=== PATIENT | male | born 1945 | race Caucasian/White ===

== ENCOUNTER 2022-05-15 12:24 | Inpatient (IN) | payer OTHER, MEDICARE, SELFPAY ==
[2022-05-15] VITALS (10 sets, daily range): BP systolic 117–169; BP diastolic 47–64; PULSE 50–80; RESP 12–20; TEMP 35.9–37.4; O2SAT 86–100
--- NOTE | ~2022-05-15 | XR_ITS ---
EXAMINATION: XR surgery orthopedic DATE: 05/16/2022 16:45 BILLBOARD ERECTOR INDICATION: LT IT NAIL . TECHNIQUE: 4 fluoroscopic images of the left hip and femur were obtained during left intertrochanteri c nail placement performed by the surgeon. I was not present in the operating room. Fluoroscopy expos ure time was 78.4 seconds. Air Kerma 46.12 mGy. DAP 0.815-0 mGym2. COMPARISON: None FINDINGS: Multiple images demonstrate hardware fixation of the left hip. No unexpected radiopaque foreign body. IMPRESSION: Fluoroscopic documentation of left intertrochanteric nail placement. Please refer to the operative no te for complete procedural details . Reviewed, dictated and finalized at location K. BOARD ERECTOR IMPRESSION: Fluoroscopic documentation of left intertrochanteric nail placement. Please ref er to the operative note for complete procedural details .
--- NOTE | ~2022-05-15 | XR_ITS ---
EXAMINATION: XR chest 1V INDICATION: Pain after fall TECHNIQUE: AP view of the chest is obtained. COMPARISON: 12/17/2012 FINDINGS: The lung volumes are low. No pleural effusion or pneumothorax. The cardiomediastinal silhou ette is normal. A metallic density projecting over the right lung apex now appears to be outside the right lung on the comparison examination. IMPRESSION: 1. No acute cardiopulmonary abnormality. Reviewed, dictated and finalized at location B. 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
--- NOTE | ~2022-05-15 | XR_ITS ---
EXAMINATION: XR hip LT 2V w AP pelvis INDICATION: Left hip pain TECHNIQUE: AP view of the pelvis and two views of the left hip are obtained. COMPARISON: None available FINDINGS: There is an acute, traumatic, closed, intertrochanteric fracture of the left femur. The fem oral heads are well-seated in their acetabula. There is mild osteoarthritis of the hips. The soft tis sues are unremarkable. There is moderate spondylosis of the visualized lumbar spine. IMPRESSION: 1. Acute intertrochanteric fracture of the left femur. Reviewed, dictated and finalized at location B. 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
--- NOTE | 2022-05-15 12:24 | ECG_ITS ---
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
--- NOTE | 2022-05-15 12:29 | ED.FALL ---
HPI - Fall General Chief Complaint: Fall <MELCHOR Noriega Last Filed: 05/15/22 16:17> Stated Complaint: fall - hip pain <MELCHOR Noriega Last Filed: 05/15/22 16:17> Source: patient <Becki Pena PA-C - Last Filed: 05/15/22 16:17> Mode of arrival: EMS <MELCHOR Noriega Last Filed: 05/15/22 16:17> Limitations: no limitations <MELCHOR Noriega Last Filed: 05/15/22 16:17> History of Present Illness HPI Narrative: Patient is a 77-year-old male who presents the ED via EMS with L hip pain status post fall. Patient reports he tripped and fell while taking out the trash this morning, landing onto his left side. He did not hit his head or lose consciousness. Denied prodromal symptoms. He complains of severe pain to his left hip. He was unable to ambulate after the fall, EMS was contacted. Patient denies any other areas of pain at this time. Denies chest pain, difficulty breathing. Given morphine 4mg in route to the ED. <MELCHOR Noriega Last Filed: 05/15/22 16:17> Related Data Home Medications: Home Medications Medication Instructions Recorded Confirmed amlodipine 10 mg tablet 10 mg PO BID 05/15/22 05/20/22 buspirone 15 mg tablet 15 mg PO BID 05/15/22 05/20/22 carvedilol 25 mg tablet 25 mg PO BID 05/15/22 05/20/22 chlorthalidone 25 mg tablet 25 mg PO DAILY 05/15/22 05/20/22 cholecalciferol (vitamin D3) 25 25 mcg PO DAILY 05/15/22 05/20/22 mcg (1,000 unit) capsule docusate sodium 100 mg capsule 100 mg PO BID 05/15/22 05/20/22 folic acid 1 mg tablet 1 mg PO DAILY 05/15/22 05/20/22 losartan 100 mg tablet 100 mg PO DAILY 05/15/22 05/20/22 paroxetine HCl 30 mg tablet 30 mg PO BID 05/15/22 05/20/22 sulfasalazine 500 mg 0.5 g PO BID 05/15/22 05/20/22 tablet,delayed release acetaminophen 325 mg tablet (Mapap 975 mg PO Q8H PRN Mild Pain (1-3) 05/20/22 05/20/22 (acetaminophen)) Or Fever tramadol 50 mg tablet 25 mg PO TID PRN Pain (Scale Score 05/20/22 05/20/22 4-6) <Becki Pena PA-C - Last Filed: 05/15/22 16:17> Allergies/Adverse Reactions: Allergies Allergy/AdvReac Type Severity Reaction Status Date / Time No Known Allergies Allergy Verified 05/20/22 21:09 <MELCHOR Noriega Last Filed: 05/15/22 16:17> Review of Systems Review of Systems: CONSTITUTIONAL: Denies fever, chills, or sweats. EYES: Denies visual changes. CARDIOVASCULAR: Denies chest pain. RESPIRATORY: Denies dyspnea. GASTROINTESTINAL: Denies abdominal pain, nausea, vomiting. MUSCULOSKELETAL: Reports left hip pain. NEUROLOGIC: Denies HI, LOC, dizziness, lightheadedness, headache, numbness, or weakness. <Becki Pena PA-C - Last Filed: 05/15/22 16:17> All systems reviewed & are unremarkable except as noted in HPI and below <Becki Pena PA-C - Last Filed: 05/15/22 16:17> [facility] Past Medical History Medical History: Medical History Anxiety Chronic kidney disease History of prostate cancer Status post prostatectomy. Hypertension Psoriatic arthritis War injury due to shrapnel <MELCHOR Noriega Last Filed: 05/15/22 16:17> Surgical History Surgical History: Surgical History History of carpal tunnel release History of prostatectomy History of wisdom tooth extraction <MELCHOR Noriega Last Filed: 05/15/22 16:17> Family History Family History: Family History Mother Diabetes mellitus Pancreatic cancer Father Glioblastoma <Becki Pena PA-C - Last Filed: 05/15/22 16:17> Social History Social History: Social History Social History: Surrogate medical decision maker: Genesis Geesybil, spouse. Code status: Full cod
[2022-05-15 12:51] LABS: Basophils Percent Auto 0.8 % (0.2-1.2); Eosinophils Absolute Auto 0.1 K/mm3 (0-0.3); Eosinophils Percent Auto 3.1 % (0-4.4); Hematocrit 34.7 % (42.0-52.0); Hemoglobin 11.7 g/dL (14.0-18.0); Immature Granulocyte Absolute 0.03 K/mm3 (0.00-0.031); Immature Granulocyte Percent A 0.8 % (0-0.5); Lymphocytes Absolute Auto 0.57 K/mm3 (0.9-3.2); Lymphocytes Percent Auto 14.6 % (18.3-44.2); Mean Corpuscular HGB Conc 33.7 g/dl (32-36); Mean Corpuscular Hemoglobin 35.5 pg (26-34); Mean Corpuscular Volume 105.2 fl (80-100); Mean Platelet Volume 10.7 fl (7.4-10.4); Monocytes Absolute Auto 0.5 K/mm3 (0.1-0.6); Monocytes Percent Auto 13.6 % (2.6-8.5); Neutrophils Absolute Auto 2.6 K/mm3 (1.3-6.7); Neutrophils Percent Auto 67.1 % (45.5-73.1); Platelet Count Result 166 k/mm3 (150-375); Red Cell Distribution Width 13.7 % (11.5-14.5); White Blood Count 3.9 K/mm3 (4.5-10.0)
[2022-05-15] MEDS: ONDANSETRON INJ 4 MG/2 ML VIAL IV PUSH (12:52)
[2022-05-15] MEDS: HYDROmorphone HCL INJ (*CRX) 1 MG/ML SYR 0.5 MG IV PUSH ×3 (12:52→19:34)
[2022-05-15 13:01] LABS: Alanine Aminotransferase 18 U/L (6-50); Alkaline Phosphatase 47 U/L (38-126); Anion Gap 12 mmol/L (8-16); Aspartate Amino Transferase 28 U/L (17-59); Bilirubin,Total 0.6 mg/dL (0.2-1.3); Blood Urea Nitrogen 23 mg/dL (9-20); Carbon Dioxide 30 mmol/L (22-30); Chloride 98 mmol/L (98-107); Estimated CRCL calculation 41 ml/min; Estimated Glomerular Filt Rate 37; Glucose 106 mg/dL (65-110); Potassium 3.4 mmol/L (3.4-5.0); Sodium 140 mmol/L (137-145)
[2022-05-15 13:08] LABS: INR 1.1; Prothrombin Time 13.8 Seconds (11.1-14.7); Schistocytes None Seen (NORMAL)
[2022-05-15 13:09] LABS: Partial Thromboplastin Time 28.8 SECONDS (22.3-36.8)
[2022-05-15] MEDS: diazePAM INJ (*CRX) 10 MG/2 ML SYRINGE 2 MG IV PUSH ×2 (13:57→18:48)
[2022-05-15 14:27] LABS: SARS-CoV-2 RNA PCR Negative
--- NOTE | 2022-05-15 15:00 | PM.IMHP ---
H&P: HPI History of Present Illness Date/Time: 05/15/22 15:00 Chief Complaint: Left hip pain after fall. Narrative: This is a very pleasant 77-year-old male with hypertension, chronic kidney disease, psoriatic arthritis, and history of prostate cancer who presented to the emergency department via EMS from home for evaluation of left hip pain after a fall. Not long prior to arrival he and outside to fetch the trash can and while pulling it into the garage from the side door, he lost his footing and landed hard onto his left hip on the concrete floor. He was unable to get himself up on even with help from his , and EMS was summoned. Imaging in the ED demonstrated a left intertrochanteric fracture and he is being admitted in this setting. He complains of significant spasms around the left hip, rated 6/10. Hydromorphone and diazepam given in the ED have helped but their are wearing off. He sustained no other injuries in the fall and there was no head trauma or loss of consciousness. There is no numbness, tingling, or skin colored or temperature changes distal to the fracture site. Review of Systems Review of Systems: Twelve systems were reviewed. No fever, chills, or sweats. No recent cold or flu symptoms. There was no prodrome prior to the fall, it was purely mechanical. No syncope or near syncope. He denies exertional chest pain and shortness of breath. No known history of cardiac disease. He had a stress test done spring 2021 for evaluation of dyspnea on exertion and that was normal per patient report. No nausea, vomiting, or diarrhea. He denies dysuria. Except as documented, all other systems were reviewed and are negative. [facility] Past Medical History Medical History (Updated 05/15/22 @ 19:01 by Alia Logan PA-C) Chronic kidney disease History of prostate cancer Status post prostatectomy. Hypertension Psoriatic arthritis War injury due to shrapnel Surgical History Surgical History (Updated 05/15/22 @ 18:53 by Alia Logan PA-C) History of carpal tunnel release History of prostatectomy History of wisdom tooth extraction Family History Family History (Updated 05/15/22 @ 18:54 by Alia Logan PA-C) Mother Diabetes mellitus Pancreatic cancer Father Glioblastoma Social History Social History (Updated 05/15/22 @ 18:56 by Alia Logan PA-C) Social History: Surrogate medical decision maker: Genesis Mccollum, spouse. Code status: Full code. Smoking packs per day: 1 Smoking cigarettes per day: 20.0 Years smoked: 40 Smoking pack-years: 40.00 Smoking status: Former smoker Tobacco type: cigarettes Second hand tobacco smoke exposure: Yes Additional smoking assessment comments: Quit around 2013. Alcohol intake: current Drinks per week: 7 Alcohol use details: 1 shot of bourbon each night before bed. Substance use: never Substance use type: does not use Lack of Transportation: No Lack of Food: Never True Current Housing: I Have Housing Concerned About Future Housing: No Difficulty Paying Gas/Electric Bills: No Difficulty Paying for Meds: No Currently Unemployed: No Education: High School Diploma/GED Difficulty w/ Childcare or Family Care: No Additional living arrangements comments: The patient lives with his in [place]. They have 2 grown children. Additional occupation/education comments: Considered 100% disabled by the secondary to stable shrapnel injuries. 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 Spiritual care concerns: No Meds Home Medications and Allergies Home Medications Medication Instructions Recorded Confirmed Type amlodipine 10 mg tablet 10 mg PO BID 05/15/22 05/15/22 History buspirone 15 mg tablet 15 mg PO BID 05/15/22 05/15/22 History carvedilol 25 mg tablet 25 mg PO BID 05/15/22 05/15/22 History chlorthalidone 25 mg tablet 25 mg PO DAILY 05/15/22 05/15/22 History cholecalciferol (
[2022-05-15 15:23] LABS: Platelet Estimate Adequate (Adequate)
[2022-05-15] MEDS: HYDROmorphone HCL INJ (*CRX) 1 MG/ML SYR IV PUSH (16:04)
--- NOTE | 2022-05-15 16:17 | PC.NURSE ---
This patient, Darrell Mccollum, was admitted to 3 [facility] Surg Room 303-01. Patient/family oriented to hospital policies and general routines including ID bracelet, bed and alarms, visiting hours, pain management, procedures, bathroom and other care routines, personal items, smoking policy, room service/diet, and visiting hours. Information on how to activate the Rapid Response Team has been discussed. Patient/Family are encouraged to report perceived risks to care and to ask questions if they do not understand what they are told or what they should do.
[2022-05-15] MEDS: amLODIPine BESYLATE 5 MG TABLET 10 MG PO (20:08)
[2022-05-15] MEDS: carvediloL 25 MG TABLET PO (20:08)
[2022-05-15] MEDS: PARoxetine 10 MG TABLET 30 MG PO (20:08)
[2022-05-15] MEDS: busPIRone HCL 5 MG TABLET 15 MG PO (20:09)
[2022-05-15] MEDS: DOCUSATE SODIUM 100 MG CAPSULE PO (20:09)
[2022-05-15 20:36] LABS: Iron 88 ug/dL (49-181)
[2022-05-15 20:46] LABS: Percent Iron Saturation 30 % (20-50)
[2022-05-15 21:41] LABS: Folic Acid > 20.0 ng/mL (2.76->20)
[2022-05-16] VITALS (16 sets, daily range): BP systolic 102–150; BP diastolic 52–91; PULSE 62–85; RESP 12–20; TEMP 36–37.9; O2SAT 94–100
[2022-05-16] MEDS: HYDROmorphone HCL INJ (*CRX) 1 MG/ML SYR 0.5 MG IV PUSH ×7 (00:24→18:16)
[2022-05-16 06:29] LABS: Hematocrit 32.3 % (42.0-52.0); Hemoglobin 10.8 g/dL (14.0-18.0); Mean Corpuscular HGB Conc 33.4 g/dl (32-36); Mean Corpuscular Hemoglobin 35.5 pg (26-34); Mean Corpuscular Volume 106.3 fl (80-100); Mean Platelet Volume 11.3 fl (7.4-10.4); Platelet Count Result 169 k/mm3 (150-375); Red Blood Count 3.04 M/mm3 (4.6-6.20); Red Cell Distribution Width 13.9 % (11.5-14.5); White Blood Count 8.1 K/mm3 (4.5-10.0)
[2022-05-16 06:37] LABS: Anion Gap 14 mmol/L (8-16); Blood Urea Nitrogen 27 mg/dL (9-20); Calcium 8.8 mg/dL (8.4-10.2); Carbon Dioxide 29 mmol/L (22-30); Chloride 97 mmol/L (98-107); Estimated CRCL calculation 37 ml/min; Estimated Glomerular Filt Rate 33; Glucose 123 mg/dL (65-110); Magnesium 2.1 mg/dL (1.6-2.3); Potassium 3.1 mmol/L (3.4-5.0); Sodium 140 mmol/L (137-145)
--- NOTE | 2022-05-16 07:13 | PM.IMPN ---
Progress Note: A&P Assessment and Plan (1) Closed intertrochanteric fracture of left femur: Code(s): S72.142A - Displaced intertrochanteric fracture of left femur, initial encounter for closed fracture Status: Acute Assessment and Plan: OR today with ortho DVT prophylaxis per surgery (2) Macrocytic anemia: Code(s): D53.9 - Nutritional anemia, unspecified Status: Acute Assessment and Plan: follow labs (3) Fall from ground level: Code(s): W18.30XA - Fall on same level, unspecified, initial encounter Status: Acute Assessment and Plan: PT/OT consult (4) Hypertension: Code(s): I10 - Essential (primary) hypertension Status: Acute (5) Chronic kidney disease: Code(s): N18.9 - Chronic kidney disease, unspecified Status: Acute Assessment and Plan: monitor, unknown baseline (6) Psoriatic arthritis: Code(s): L40.50 - Arthropathic psoriasis, unspecified Status: Acute Assessment and Plan: receives outpatient humira injections (7) History of prostate cancer: Code(s): Z85.46 - Personal history of malignant neoplasm of prostate Status: Acute Assessment and Plan: history of prostatectomy, now with chronic urinary incontinence, at baseline, monitor Plan DVT prophylaxis with SCDs GI prophylaxis not indicated Code status full code Subjective Date/time seen: 05/16/22 07:13 Interval history: Patient going to the OR today for hip fracture repair. No overnight events noted. No chest pain or shortness of breath. No nausea, vomiting or diarrhea. No fevers or chills. Review of Systems Review of Systems: 12 point review of systems was assessed and was negative except as noted in the HPI Exam Narrative: General: No acute distress, alert and oriented per baseline HEENT: Atraumatic, normocephalic, mucous membranes moist CV: Regular rate and rhythm, S1, S2 Lungs: Clear to auscultation bilaterally, no rales or crackles noted, no wheezes, good air entry Abdomen: Soft, nontender, nondistended Extremities: Normal to inspection Skin: No rashes noted, no lesions or wounds seen Psych: Euthymic, normal affect Objective Data Vital Signs Vital Signs: Vital Signs - 24 hr 05/15/22 12:28 05/15/22 12:22 05/15/22 14:00 Temperature 98.1 F Pulse Rate 50 L 53 L 53 L Respiratory Rate 14 14 12 Blood Pressure 144/61 H 169/62 H 125/64 Pulse Oximetry 100 98 97 Oxygen Delivery Oxygen Flow Rate 05/15/22 14:23 05/15/22 16:00 05/15/22 15:35 Temperature 96.6 F L Pulse Rate 52 L 55 L 58 L Respiratory Rate 12 20 14 Blood Pressure 129/63 118/54 L 117/59 L Pulse Oximetry 97 93 100 Oxygen Delivery Oxygen Flow Rate 05/15/22 20:08 05/15/22 21:26 05/15/22 20:00 Temperature 99.3 F Pulse Rate 80 79 Respiratory Rate 14 Blood Pressure 134/47 L Pulse Oximetry 94 86 L Oxygen Delivery Room Air Oxygen Flow Rate 05/15/22 20:15 05/16/22 05:25 Temperature 100.3 F H Pulse Rate 85 Respiratory Rate 14 Blood Pressure 126/52 L Pulse Oximetry 96 100 Oxygen Delivery Nasal Cannula Oxygen Flow Rate 2 Intake/Output Intake/Output: Intake & Output 05/13/22 05/14/22 05/15/22 05/16/22 23:59 23:59 23:59 23:59 Intake Total 790 Output Total 650 Balance 790 -650 Meds/Results Medications: Active Medications Generic Name Dose Route Start Last Admin Trade Name Billq PRN Reason Stop Dose Admin Acetaminophen 1,000 mg 05/16/22 14:30 Acetaminophen 500 Mg Tablet PO 05/16/22 14:31 ONCE ONE Amlodipine Besylate 10 mg 05/15/22 21:00 05/15/22 20:08 Amlodipine Besylate 5 Mg Tablet PO 10 mg Q12HR JAYRO Administration Buspirone HCl 15 mg 05/15/22 19:25 05/15/22 20:09 Buspirone Hcl 5 Mg Tablet PO 15 mg BID JAYRO Administration Carvedilol 25 mg 05/15/22 21:00 05/15/22 20:08 Carvedilol 25 Mg Tablet PO 25 mg Q12HR JAYRO Administr
--- NOTE | 2022-05-16 07:49 | PM.CNOR ---
Assessment and Plan Assessment and plan (1) Closed intertrochanteric fracture of left femur: Qualifiers: Encounter type: initial encounter Fracture alignment: displaced Qualified Code(s): S72.142A - Displaced intertrochanteric fracture of left femur, initial encounter for closed fracture Code(s): S72.142A - Displaced intertrochanteric fracture of left femur, initial encounter for closed fracture Status: Acute Assessment and Plan: 77-year-old gentleman sustained fall at home yesterday. Left hip intertrochanteric fracture. heart disease and renal failure. No previous fractures. No problems with left hip previously. Discussed nonoperative and operative treatment options with the patient. Risks and benefits of each as well as alternatives were reviewed. All of the patient's questions were answered. The risks of surgery reviewed including but not limited to: Neurovascular damage, wound complication, infection, blood clot, pulmonary embolus, stroke, myocardial infarction, and anesthetic risks up to and including . Continued pain and possible dysfunction were explained. Specific risks of the procedure including later recurrence of deformity. No guarantees were offered. If hardware used, discussed risk of failure/ breakage and possible need for removal. If complications occur, the patient understands the need for further treatment, possible further surgery. Patient verbalizes understanding and wishes to proceed. PLAN: Left hip intertrochanteric fracture reduction with insertion trochanteric nail History of Present Illness HPI Consult date: 05/16/22 Requesting physician: Becki Pena PA-C Chief complaint: Left intertrochanteric fracture,Ground Level Fall Narrative: 77-year-old gentleman with no prior left hip complaints lost his balance and fell in his garage yesterday. Emergency room radiographs noted intertrochanteric fracture left hip. Patient mid further care. Denies numbness or tingling. Denies loss of consciousness or head injury. Denies neck or back pain. Pain left hip. Review of Systems Constitutional: Constitutional: Denies fever(s) Eyes: Eyes: Denies blurry vision ENT: Reports Normal hearing present Cardiovascular: Cardiovascular: Denies chest pain and Denies dyspnea Respiratory: Respiratory: Denies dyspnea and Denies wheezing Gastrointestinal: Gastrointestinal: Denies abdominal pain Genitourinary: Genitourinary: Denies urinary urgency Musculoskeletal: Musculoskeletal: Reports as per HPI and Denies numbness Integumentary/Breasts: Skin/Breast: Denies changing lesions and Denies sores Neurologic: Reports Normal hearing present, Denies behavioral changes, Denies confusion, Denies numbness and Denies convulsions Psychiatric: Psychiatric: Denies behavioral changes, Denies confusion and Denies hallucinations Endocrine: Endocrine: Denies heat intolerance Hematologic/Lymphatic: Hematologic/Lymphatic: Denies easy bleeding Allergic/Immunologic: Allergic/Immunologic: Denies wheezing PMFSH Past Medical History Medical History Chronic kidney disease History of prostate cancer Status post prostatectomy. Hypertension Psoriatic arthritis War injury due to shrapnel Surgical History Surgical History History of carpal tunnel release History of prostatectomy History of wisdom tooth extraction Family History Family History Mother Diabetes mellitus Pancreatic cancer Father Glioblastoma Social History Social History Social History: Surrogate medical decision maker: Genesis Mccollum, spouse. Code status: Full code. Smoking packs per day: 1 Smoking cigarettes per day: 20.0 Years smoked: 40 Smoking pack-years: 40.00 Smoking status: Former s
--- NOTE | 2022-05-16 07:53 | WPDHPUPDATE1 ---
History and Physical Update Update Date/Time: 05/16/22 07:53 History and Physical has been reviewed, including an updated exam of the patient. There are NO changes in the patient's condition. Risks, benefits, and alternatives have been discussed and questions answered. Patient agrees to proceed with procedure.
[2022-05-16] MEDS: busPIRone HCL 5 MG TABLET 15 MG PO (08:09)
[2022-05-16] MEDS: POTASSIUM CHLORIDE 20 MEQ TABLET 40 MEQ PO (08:10)
[2022-05-16] MEDS: amLODIPine BESYLATE 5 MG TABLET 10 MG PO ×2 (08:10→20:07)
[2022-05-16] MEDS: carvediloL 25 MG TABLET PO ×2 (08:11→20:07)
[2022-05-16] MEDS: PARoxetine 10 MG TABLET 30 MG PO (08:11)
--- NOTE | 2022-05-16 10:32 | PHAR ---
HOME MED: SULFASALAZINE 500 MG EC TAB, TAKE ONE TABLET BY MOUTH TWICE A DAY FOR INFLAMMATION. VERIFIED BY PHARMACY.
--- NOTE | 2022-05-16 14:05 | PC.NURSE ---
Pt off of unit to surgery
[2022-05-16] MEDS: LACTATED RINGERS 1,000 ML 30 ML IV CONT (14:20)
[2022-05-16] MEDS: TRANEXAMIC ACID 1,000MG/ISO100 1,000 MG/100 ML BAG 200 MG IVPB (14:25)
[2022-05-16] MEDS: ACETAMINOPHEN 500 MG TABLET 1000 MG PO (14:25)
--- NOTE | 2022-05-16 14:29 | SUR.PREOP ---
Addendum entered by Tuyet Trevino RN 05/16/22 14:34: ALSO UPDATED VIA PHONE Original Note: patient updated on time delay to surgery start
--- NOTE | 2022-05-16 15:59 | WPDANESEPPF ---
Anes - Initial Pre Proc Eval Procedure: Operation Date: 05/16/22 15:30 Proposed Procedures p Left Intertrochanteric Nail - Umair Soliz MD Date/Time: 05/16/22 15:59 Surgeon: Rupali Hankins MD Pre Op Diagnosis: Left intertrochanteric fracture,Ground Level Fall Patient Data Age: 77 Gender: M Height: 1.75 m Weight: 120.67 kg Last Vital Signs Temp 36.7 C 05/16/22 14:09 Pulse 62 05/16/22 14:09 Resp 20 05/16/22 14:09 BP 121/60 05/16/22 14:09 Pulse Ox 97 05/16/22 14:09 O2 Del Method Nasal Cannula 05/16/22 14:09 O2 Flow Rate 2 05/16/22 14:09 Allergies Allergy/AdvReac Type Severity Reaction Status Date / Time No Known Allergies Allergy Unverified 05/15/22 16:32 Home Medications Medication Instructions Recorded Confirmed Type amlodipine 10 mg tablet 10 mg PO BID 05/15/22 05/15/22 History buspirone 15 mg tablet 15 mg PO BID 05/15/22 05/15/22 History carvedilol 25 mg tablet 25 mg PO BID 05/15/22 05/15/22 History chlorthalidone 25 mg tablet 25 mg PO DAILY 05/15/22 05/15/22 History cholecalciferol (vitamin D3) 25 25 mcg PO DAILY 05/15/22 05/15/22 History mcg (1,000 unit) capsule docusate sodium 100 mg capsule 100 mg PO BID 05/15/22 05/15/22 History folic acid 1 mg tablet 1 mg PO DAILY 05/15/22 05/15/22 History losartan 100 mg tablet 100 mg PO DAILY 05/15/22 05/15/22 History paroxetine HCl 30 mg tablet 30 mg PO BID 05/15/22 05/15/22 History sulfasalazine 500 mg 0.5 g PO BID 05/15/22 05/15/22 History tablet,delayed release Laboratory Tests 05/15/22 05/15/22 05/16/22 19:39 19:39 05:29 WBC 8.1 K/mm3 K/mm3 (4.5-10.0) RBC 3.04 M/mm3 L M/mm3 (4.6-6.20) Hgb 10.8 g/dL L g/dL (14.0-18.0) Hct 32.3 % L % (42.0-52.0) MCV 106.3 fl H fl (80-100) MCH 35.5 pg H pg (26-34) MCHC 33.4 g/dl g/dl (32-36) RDW 13.9 % % (11.5-14.5) Plt Count 169 k/mm3 k/mm3 (150-375) MPV 11.3 fl H fl (7.4-10.4) Sodium Potassium Chloride Carbon Dioxide Anion Gap BUN Creatinine Estim Creat Clear Calc Estimated GFR Glucose Calcium Magnesium Iron 88 ug/dL ug/dL (49-181) TIBC 292 ug/dL ug/dL (265-497) % Saturation 30 % % (20-50) Ferritin 125.00 ng/mL ng/mL (11.1-264) Vitamin B12 497.0 pg/mL pg/mL (239-931) Folate > 20.0 ng/mL H ng/mL (2.76->20) TSH (Reflex) 2.780 uIU/mL uIU/mL (0.465-4.68) 05/16/22 05:29 WBC RBC Hgb Hct MCV MCH MCHC RDW Plt Count MPV Sodium 140 mmol/L mmol/L (137-145) Potassium 3.1 mmol/L L mmol/L (3.4-5.0) Chloride 97 mmol/L L mmol/L (98-107) Carbon Dioxide 29 mmol/L mmol/L (22-30) Anion Gap 14 mmol/L mmol/L (8-16) BUN 27 mg/dL H mg/dL (9-20) Creatinine 2.00 mg/dL H mg/dL (0.7-1.3) Estim Creat Clear Calc 37 ml/min ml/min Estimated GFR 33 L (59 - ) Glucose 123 mg/dL H mg/dL (65-110) Calcium 8.8 mg/dL mg/dL (8.4-10.2) Magnesium 2.1 mg/dL mg/dL (1.6-2.3) Iron TIBC % Saturation Ferritin Vitamin B12 Folate TSH (Reflex) Patient hx anesthesia problems: none Family hx anesthesia problems: none Results Review: All pre-operative results and documents have been reviewed as part of the pre-operative evaluation. [facility] Past Medical History Medical History Anxiety Chronic kidney disease History of prostate cancer Status post prostatectomy. Hypertension Psoriatic arthritis War injury due to shrapnel Surgical History Surgical History Histor
[2022-05-16] MEDS: ceFAZolin 3 GM/D5W 100 ML 100 ML IVPB (16:18)
[2022-05-16] MEDS: BUPIVACAINE/EPINEPHRINE 0.25% 50 ML VIAL INFILTRATE (16:51)
--- NOTE | 2022-05-16 17:40 | P.OP_ITS ---
Procedure Note - Detailed Date of Procedure 05/16/22 Pre-op Diagnosis Left intertrochanteric fracture,Ground Level Fall Post-op Diagnosis Same Procedure Performed Left hip intramedullary trochanteric nail Surgeon Umair Soliz MD [employer] 1st clinical nursing assistant Anesthesia General Indications 77-year-old gentleman who fell at home onto his left hip. Intertrochanteric hip fracture on radiographs. Patient desires operative treatment. Description of Procedure After informed consent the operative extremity was marked in the preoperative holding area. Patient received intravenous antibiotics. The patient was taken to the operative room, placed in the supine position, general anesthesia induced by the anesthesia team. Patient was placed on a fracture table with longitudinal traction applied to the left leg. Right leg was extended out of the field. The hip fracture was reduced to near anatomic position and verified with image intensification. A time-out was performed confirming the patient, site of the surgery and plan. The left lower extremity was prepped and draped sterilely from the knee to the iliac crest region using a ChloraPrep skin solution. Incision was made just proximal to greater trochanter down to the subcutaneous tissues. Hemostasis controlled with electrocautery. Blunt dissection through the fascia to the tip of the greater trochanter. A starter awl was placed at the tip of the greater trochanter into the medullary canal of the femur. This was checked with image intensification and was in good position. Intramedullary guide misty positioned. A one-step hand reaming done proximally. Intramedullary canal was reamed with a 12.5 millimeter flexible reamer. Neck angle selected off of preoperative radiographs temp plating. 125 degree 11mm X 21.5cm Nail opened on the back table and assembled. This was then inserted over the guide misty to the correct depth. Guide misty removed. Lag screw was then placed with a stab incision over the lateral femur using a 10 blade knife. Blunt dissection down to the lateral side of the bone. Soft tissue protectors placed. Guide pin placed in the center- center position of the femoral head and measured. 95 millimeter x 10.5 millimeter lag screw placed to correct depth and verified with image intensification. Traction released from the leg and compression of the fracture performed with the external compression device. Distal locking of the nail then performed. Stab incision made lateral distal thigh. Blunt dissection down lateral side of the femur. Soft tissue protector placed. Femur drilled from lateral to medial through the distal nail. Distal femur measured and the appropriate size screw placed. Image intensification confirmed the placement through the locking hole. Final image intensification confirmed reduction of the fracture and placement of the hardware. Wounds then thoroughly irrigated with antibiotic solution. Fascia repaired with 0 Vicryl interrupted suture. Subcutaneous tissue repaired with 00 Vicryl interrupted suture and skin repaired with feliberto. Sterile dressings applied. Patient then awoke from anesthesia, extubated, taken to recovery room stable condition. All sponge, needle and instrument counts correct at the end the case. Implants Arthrex trochanteric nail 125 degree, living mm diameter by 21.5 cm with 95 mm lag screw 44 mm x 5 mm locking screw Estimated Blood Loss 350 Urine Output 120 Drains No Packing No Pathology None sent Complications None Condition Stable Disposition PACU
[2022-05-16] MEDS: DEXTROSE 5%/0.45% SOD CHL 1,000 ML 80 ML IV CONT (20:06)
[2022-05-16] MEDS: FAMOTIDINE 20 MG TABLET PO (20:08)
[2022-05-16] MEDS: ceFAZolin 2 GM/D5W 50 ML 2 GM/50 ML BAG IVPB (23:17)
[2022-05-17] MEDS: MORPHINE SULFATE (*CRX) 4 MG/ML INJ 3 MG IV PUSH ×6 (00:21→19:51)
[2022-05-17 00:24] VITALS: BP 108/56; PULSE 65; RESP 20; TEMP 37.4; O2SAT 97
[2022-05-17 04:24] VITALS: BP 118/50; PULSE 66; RESP 20; TEMP 37; O2SAT 96
[2022-05-17] MEDS: ACETAMINOPHEN 325 MG TABLET 650 MG PO (06:10)
[2022-05-17 06:25] VITALS: O2SAT 96
[2022-05-17 06:47] LABS: Basophils Percent Auto 0.2 % (0.2-1.2); Hematocrit 30.5 % (42.0-52.0); Hemoglobin 9.8 g/dL (14.0-18.0); Immature Granulocyte Absolute 0.03 K/mm3 (0.00-0.031); Immature Granulocyte Percent A 0.3 % (0-0.5); Lymphocytes Absolute Auto 0.46 K/mm3 (0.9-3.2); Mean Corpuscular HGB Conc 32.1 g/dl (32-36); Mean Corpuscular Hemoglobin 35.4 pg (26-34); Mean Corpuscular Volume 110.1 fl (80-100); Mean Platelet Volume 11.7 fl (7.4-10.4); Monocytes Percent Auto 10.9 % (2.6-8.5); Neutrophils Absolute Auto 7.7 K/mm3 (1.3-6.7); Neutrophils Percent Auto 83.6 % (45.5-73.1); Platelet Count Result 141 k/mm3 (150-375); Red Blood Count 2.77 M/mm3 (4.6-6.20); Red Cell Distribution Width 13.5 % (11.5-14.5); White Blood Count 9.2 K/mm3 (4.5-10.0)
[2022-05-17 06:53] LABS: Alanine Aminotransferase 37 U/L (6-50); Albumin Level 3.7 g/dL (3.5-5.1); Alkaline Phosphatase 44 U/L (38-126); Anion Gap 10 mmol/L (8-16); Aspartate Amino Transferase 180 U/L (17-59); Bilirubin,Total 0.5 mg/dL (0.2-1.3); Blood Urea Nitrogen 32 mg/dL (9-20); Calcium 8.8 mg/dL (8.4-10.2); Carbon Dioxide 30 mmol/L (22-30); Chloride 97 mmol/L (98-107); Estimated CRCL calculation 34 ml/min; Estimated Glomerular Filt Rate 29; Glucose 143 mg/dL (65-110); Sodium 137 mmol/L (137-145)
--- NOTE | 2022-05-17 07:53 | WPDANESPN ---
Anes - Prog Note Post-Op Date/Time: 05/17/22 07:53 Cardiovascular status: normal Respiratory status: normal Airway patency: baseline Mental status: baseline Post-Op hydration status: normal Vital Signs: Last Vital Signs Temp 37.0 C 05/17/22 04:24 Pulse 66 05/17/22 04:24 Resp 20 05/17/22 04:24 BP 118/50 L 05/17/22 04:24 Pulse Ox 96 05/17/22 06:25 O2 Del Method Room Air 05/17/22 06:25 O2 Flow Rate 3 05/16/22 21:10 Pain Score (VAS): 10/15 I/O: Intake & Output 05/16/22 05/16/22 05/17/22 15:59 23:59 07:59 Intake Total 750 995 Output Total 240 750 Balance 510 245 Laboratory Tests 05/17/22 05:23 05/17/22 05/17/22 05:23 05:23 WBC Pending RBC Pending Hgb Pending Hct Pending MCV Pending MCH Pending MCHC Pending RDW Pending Plt Count Pending MPV Pending Immature Gran % (Auto) Pending Neut % (Auto) Pending Lymph % (Auto) Pending Frontier % (Auto) Pending Eos % (Auto) Pending Baso % (Auto) Pending Lymph # (Auto) Pending Frontier # (Auto) Pending Eos # (Auto) Pending Baso # (Auto) Pending Abs Immat Gran (auto) Pending Absolute Neuts (auto) Pending Absolute Nucleated RBC Pending Nucleated RBC % Pending Sodium 137 Potassium 4.0 Chloride 97 L Carbon Dioxide 30 Anion Gap 10 BUN 32 H Creatinine 2.20 H Estim Creat Clear Calc 34 Estimated GFR 29 L Glucose 143 H Calcium 8.8 Total Bilirubin 0.5 AST 180 H ALT 37 Alkaline Phosphatase 44 Total Protein 6.0 L Albumin 3.7 Post-procedural complaints: none Patient Feedback: Patient satisfied with anesthetic care.
[2022-05-17] MEDS: ceFAZolin 2 GM/D5W 50 ML 2 GM/50 ML BAG IVPB ×2 (08:09→15:56)
--- NOTE | 2022-05-17 08:09 | PM.IMPN ---
Progress Note: A&P Assessment and Plan (1) Closed intertrochanteric fracture of left femur: Qualifiers: Encounter type: initial encounter Fracture alignment: displaced Qualified Code(s): S72.142A - Displaced intertrochanteric fracture of left femur, initial encounter for closed fracture Code(s): S72.142A - Displaced intertrochanteric fracture of left femur, initial encounter for closed fracture Status: Acute Assessment and Plan: Postop day 1 hip fracture repair, left hip intramedullary trochanteric nail DVT prophylaxis per surgery (2) Macrocytic anemia: Code(s): D53.9 - Nutritional anemia, unspecified Status: Acute Assessment and Plan: Follow labs Hemoglobin 10.8 yesterday, still pending from this morning (3) Fall from ground level: Code(s): W18.30XA - Fall on same level, unspecified, initial encounter Status: Acute Assessment and Plan: PT/OT consult (4) Hypertension: Code(s): I10 - Essential (primary) hypertension Status: Acute Assessment and Plan: Stable (5) Chronic kidney disease: Code(s): N18.9 - Chronic kidney disease, unspecified Status: Acute Assessment and Plan: monitor, unknown baseline Slightly worsened creatinine after surgery yesterday, will give normal saline and reassess tomorrow (6) Psoriatic arthritis: Code(s): L40.50 - Arthropathic psoriasis, unspecified Status: Acute Assessment and Plan: receives outpatient humira injections (7) History of prostate cancer: Code(s): Z85.46 - Personal history of malignant neoplasm of prostate Status: Acute Assessment and Plan: history of prostatectomy, now with chronic urinary incontinence, at baseline, monitor Plan DVT prophylaxis with SCDs GI prophylaxis not indicated Code status full code Subjective Date/time seen: 05/17/22 08:09 Interval history: No overnight events noted. No chest pain or shortness of breath. No nausea, vomiting or diarrhea. No fevers or chills. Exam Narrative: General: No acute distress, alert and oriented per baseline HEENT: Atraumatic, normocephalic, mucous membranes moist CV: Regular rate and rhythm, S1, S2 Lungs: Clear to auscultation bilaterally, no rales or crackles noted, no wheezes, good air entry Abdomen: Soft, nontender, nondistended Extremities: Normal to inspection Skin: No rashes noted, no lesions or wounds seen Psych: Euthymic, normal affect Objective Data Vital Signs Vital Signs: Vital Signs - 24 hr 05/16/22 08:11 05/16/22 08:32 05/16/22 14:09 Temperature 98.0 F Pulse Rate 67 62 Respiratory Rate 20 Blood Pressure 121/60 Pulse Oximetry 94 97 Oxygen Delivery Nasal Cannula Nasal Cannula Oxygen Flow Rate 2 2 05/16/22 17:40 05/16/22 17:55 05/16/22 18:10 Temperature 96.9 F L Pulse Rate 74 80 81 Respiratory Rate 18 16 14 Blood Pressure 150/91 H 131/59 L 119/62 Pulse Oximetry 100 100 100 Oxygen Delivery Simple Face Mask Simple Face Mask Simple Face Mask Oxygen Flow Rate 8 8 8 05/16/22 18:25 05/16/22 19:16 05/16/22 19:24 Temperature 96.8 F L 97.7 F Pulse Rate 81 77 75 Respiratory Rate 12 20 18 Blood Pressure 126/71 133/66 109/66 Pulse Oximetry 97 97 96 Oxygen Delivery Nasal Cannula Oxygen Flow Rate 2 05/16/22 20:07 05/16/22 20:24 05/16/22 21:06 Temperature 97.7 F 98.2 F Pulse Rate 74 76 62 Respiratory Rate 18 20 Blood Pressure 102/87 120/55 L Pulse Oximetry 97 95 Oxygen Delivery Oxygen Flow Rate 05/16/22 21:10 05/16/22 20:00 05/17/22 00:24 Temperature 99.4 F Pulse Rate 65 Respiratory Rate 20 Blood Pressure 108/56 L Pulse Oximetry 98 98 97 Oxygen Delivery Nasal Cannula Nasal Cannula Oxygen Flow Rate 3 2 05/17/22 04:24 05/17/22 06:25 Temperature 98.6 F Pulse Rate 66 Respiratory Rate 20 Blood Pressure 118/50 L Pulse Oximetry 96 96 Oxygen Delivery Room Air Oxygen Flow Rate
[2022-05-17 08:15] VITALS: PULSE 68
[2022-05-17] MEDS: carvediloL 25 MG TABLET PO ×2 (08:15→21:01)
[2022-05-17] MEDS: amLODIPine BESYLATE 5 MG TABLET 10 MG PO ×2 (08:15→21:02)
[2022-05-17] MEDS: busPIRone HCL 5 MG TABLET 15 MG PO ×2 (08:15→16:35)
[2022-05-17] MEDS: CHOLECALCIFEROL 1,000 UNITS TABLET 1000 UNITS PO (08:17)
[2022-05-17] MEDS: DOCUSATE SODIUM 100 MG CAPSULE PO ×2 (08:17→16:35)
[2022-05-17] MEDS: SENNA/DOCUSATE SODIUM TABLET 2 TAB PO ×2 (08:18→16:35)
[2022-05-17] MEDS: FOLIC ACID 1 MG TABLET PO (08:18)
[2022-05-17] MEDS: PARoxetine 10 MG TABLET 30 MG PO ×2 (08:19→16:35)
[2022-05-17] MEDS: LOSARTAN POTASSIUM 100 MG TABLET PO (08:19)
[2022-05-17] MEDS: FONDAPARINUX SODIUM 2.5 MG/0.5 ML SYRINGE SUB-Q (08:19)
[2022-05-17] MEDS: polyethylene glycoL 3350 17 GM POWD.PACK PO (08:21)
[2022-05-17] MEDS: FAMOTIDINE 20 MG TABLET PO ×2 (08:21→21:01)
[2022-05-17] MEDS: CHLORTHALIDONE 25 MG TABLET PO (09:07)
[2022-05-17] MEDS: SODIUM CHLORIDE 0.9% IV 1,000 ML 100 ML IV CONT (09:09)
--- NOTE | 2022-05-17 09:29 | PM.PNORT ---
Progress Note: A&P Assessment and Plan (1) Closed intertrochanteric fracture of left femur: Qualifiers: Encounter type: initial encounter Fracture alignment: displaced Qualified Code(s): S72.142A - Displaced intertrochanteric fracture of left femur, initial encounter for closed fracture Code(s): S72.142A - Displaced intertrochanteric fracture of left femur, initial encounter for closed fracture Status: Acute Assessment and Plan: POD #1: Left hip intramedullary trochanteric nail Continue PT/OT. WBAT. Walker. HIGH FALL RISK. Continue pain control. Ice hip. Protect skin. DVT prophylaxis with Arixtra. SCDs. Incentive Spirometry Use reviewed. Monitor Dressing. Change tomorrow. Okay to transition to Mepilex Silver. Bowel Regimen. Dispo: [facility] vs. Home with Home Health pending progress with PT/OT Subjective Subjective Date/Time Seen: 05/17/22 09:29 Post Op day: 1 Interval history: POD #1: Left hip intramedullary trochanteric nail Patient doing well. Pain improved today. No new concerns. Hopeful for discharge home with home health once medically cleared/cleared by PT. Review of Systems Constitutional: Constitutional: Denies chills, Denies fatigue, Denies fever(s), Denies night sweats and Denies weakness Cardiovascular: Cardiovascular: Denies chest pain, Denies lightheadedness, Denies palpitations and Denies dyspnea Respiratory: Respiratory: Denies cough, Denies dyspnea and Denies wheezing Gastrointestinal: Gastrointestinal: Denies abdominal pain, Denies diarrhea, Denies nausea and Denies vomiting Musculoskeletal: Musculoskeletal: Reports arthralgias (left hip ), Reports joint swelling (left hip ) and Denies numbness Neurologic: Denies numbness and Denies weakness Endocrine: Endocrine: Denies fatigue and Denies palpitations Allergic/Immunologic: Allergic/Immunologic: Denies wheezing Exam Const: General: comfortable and no acute distress Orientation/consciousness: patient oriented x3 Limitations: no limitations Resp: Effort & Inspection: normal respiratory effort Cardio: Rate: regular rate Rhythm: regular rhythm GI: Inspection: non-distended Skin: General skin exam: normal color and wounds noted (incision left hip C/D/I ) Wounds: wounds noted (incision left hip C/D/I ) Neuro: General: patient oriented x3 Extrem: Left lower extremity: hip/thigh Details: tenderness Location: of the hip Location: laterally and anteriorly, swelling (thigh soft ) Location: of the hip (lateral. ), abnormal ROM (limitations with internal/external rotation and flexion/extension due to recent surgical intervention ) and other (incision lateral hip c/d/i. ), knee Details: normal to inspection and normal ROM; no tenderness and no swelling, lower leg (Negative Caitlyn's Sign ) Details: no edema, ankle (+ankle dorsiflexion/plantarflexion ) Details: normal to inspection, no edema and normal ROM; no tenderness, no swelling and no warmth and foot Details: normal capillary refill, toes with normal ROM, vascular exam Details: dorsalis pedis pulse present and motor-sensory exam light-touch normal in all toes; no tenderness, no ecchymosis and no crepitus Psych: Mental Status: mental status grossly normal Affect: normal affect Objective Data Vital Signs Vital Signs: Vital Signs - 24 hr 05/16/22 14:09 05/16/22 17:40 05/16/22 17:55 Temperature 36.7 C 36.1 C L Pulse Rate 62 74 80 Respiratory Rate 20 18 16 Blood Pressure 121/60 150/91 H 131/59 L Pulse Oximetry 97 100 100 Oxygen Delivery Nasal Cannula Simple Face Mask Simple Face Mask Oxygen Flow Rate 2 8 8 05/16/22 18:10 05/16/22 18:25 05/16/22 19:16 Temperature 36.0 C L Pulse Rate 81 81 77 Respiratory Rate 14 12 20 Blood Pressure 119/62 126/71 133/66 Pulse Oximetry 100 97 97 Oxygen Delivery Simple Face Mask Nasal Cannula Oxygen Flow Rate 8 2 05/16/22 19:24 05/16/22 20:07 05/16/22 20:24 Temperature 36.5 C 36.5 C Pulse Rate 75 74 76 Res
[2022-05-17 13:56] VITALS: BP 115/48; PULSE 96; RESP 16; TEMP 35.7; O2SAT 100
[2022-05-17 20:24] VITALS: BP 115/38; PULSE 64; RESP 14; TEMP 36.1; O2SAT 90
[2022-05-17] MEDS: oxyCODONE/ACETAMINOPHEN (*CRX) 10-325 MG TABLET 1 TAB PO (21:03)
[2022-05-18] VITALS (7 sets, daily range): BP systolic 92–145; BP diastolic 43–77; PULSE 65–72; RESP 16–22; TEMP 36.1–37.6; O2SAT 88–97
[2022-05-18 06:47] LABS: Basophils Percent Auto 0.1 % (0.2-1.2); Eosinophils Absolute Auto 0.1 K/mm3 (0-0.3); Eosinophils Percent Auto 0.7 % (0-4.4); Hematocrit 29.4 % (42.0-52.0); Hemoglobin 9.7 g/dL (14.0-18.0); Immature Granulocyte Absolute 0.04 K/mm3 (0.00-0.031); Immature Granulocyte Percent A 0.6 % (0-0.5); Immature Platelet Fraction Pct 9.4 % (0.9-11.2); Lymphocytes Percent Auto 7.1 % (18.3-44.2); Mean Corpuscular Hemoglobin 36.2 pg (26-34); Mean Corpuscular Volume 109.7 fl (80-100); Mean Platelet Volume 11.8 fl (7.4-10.4); Monocytes Absolute Auto 0.9 K/mm3 (0.1-0.6); Monocytes Percent Auto 13.2 % (2.6-8.5); Neutrophils Absolute Auto 5.5 K/mm3 (1.3-6.7); Neutrophils Percent Auto 78.3 % (45.5-73.1); Platelet Count Result 152 k/mm3 (150-375); Red Blood Count 2.68 M/mm3 (4.6-6.20); Red Cell Distribution Width 13.6 % (11.5-14.5)
[2022-05-18 06:56] LABS: Alanine Aminotransferase 20 U/L (6-50); Albumin Level 3.7 g/dL (3.5-5.1); Alkaline Phosphatase 43 U/L (38-126); Anion Gap 10 mmol/L (8-16); Aspartate Amino Transferase 156 U/L (17-59); Bilirubin,Total 0.5 mg/dL (0.2-1.3); Blood Urea Nitrogen 37 mg/dL (9-20); Carbon Dioxide 30 mmol/L (22-30); Chloride 97 mmol/L (98-107); Estimated CRCL calculation 30 ml/min; Estimated Glomerular Filt Rate 25; Glucose 117 mg/dL (65-110); Potassium 3.4 mmol/L (3.4-5.0); Sodium 137 mmol/L (137-145)
--- NOTE | 2022-05-18 08:37 | PM.IMPN ---
Progress Note: A&P Assessment and Plan (1) Closed intertrochanteric fracture of left femur: Qualifiers: Encounter type: initial encounter Fracture alignment: displaced Qualified Code(s): S72.142A - Displaced intertrochanteric fracture of left femur, initial encounter for closed fracture Code(s): S72.142A - Displaced intertrochanteric fracture of left femur, initial encounter for closed fracture Status: Acute Assessment and Plan: Postop day 2 hip fracture repair, left hip intramedullary trochanteric nail DVT prophylaxis per surgery Care coordination arranging inpatient rehab at discharge (2) Macrocytic anemia: Code(s): D53.9 - Nutritional anemia, unspecified Status: Acute Assessment and Plan: Stable between 9 and 11, continue to monitor (3) Fall from ground level: Code(s): W18.30XA - Fall on same level, unspecified, initial encounter Status: Acute Assessment and Plan: PT/OT consult (4) Hypertension: Code(s): I10 - Essential (primary) hypertension Status: Acute Assessment and Plan: Stable (5) Chronic kidney disease: Code(s): N18.9 - Chronic kidney disease, unspecified Status: Acute Assessment and Plan: monitor, unknown baseline, came in at 1.8, now 2, seemed to worsen with IV fluids yesterday, will give a dose of Lasix today and reassess this afternoon (6) Psoriatic arthritis: Code(s): L40.50 - Arthropathic psoriasis, unspecified Status: Acute Assessment and Plan: receives outpatient humira injections (7) History of prostate cancer: Code(s): Z85.46 - Personal history of malignant neoplasm of prostate Status: Acute Assessment and Plan: history of prostatectomy, now with chronic urinary incontinence, at baseline, monitor (8) Altered mental status: Code(s): R41.82 - Altered mental status, unspecified Status: Acute Assessment and Plan: Appears to be hallucinating possibly from the anesthesia postoperatively, continue to monitor, expect this to improve his medication leave his system, no intervention necessary at this time Plan DVT prophylaxis with SCDs GI prophylaxis not indicated Code status full code Subjective Date/time seen: 05/18/22 08:37 Interval history: Having some hallucinations postoperatively. Some intermittent confusion, but recognizes family and able to be redirected easily. No chest pain or shortness of breath. No nausea, vomiting or diarrhea. No fevers or chills. Tolerating p.o. well. Review of Systems Review of Systems: 12 point review of systems was assessed and was negative except as noted in the HPI Exam Narrative: General: No acute distress, alert and oriented per baseline HEENT: Atraumatic, normocephalic, mucous membranes moist CV: Regular rate and rhythm, S1, S2 Lungs: Clear to auscultation bilaterally, no rales or crackles noted, no wheezes, good air entry Abdomen: Soft, nontender, nondistended Extremities: Normal to inspection Skin: No rashes noted, no lesions or wounds seen Psych: Euthymic, normal affect Objective Data Vital Signs Vital Signs: Vital Signs - 24 hr 05/17/22 09:59 05/17/22 11:46 05/17/22 13:56 Temperature 96.2 F L Pulse Rate 96 Respiratory Rate 16 Blood Pressure 115/48 L Pulse Oximetry 100 Oxygen Delivery Nasal Cannula Nasal Cannula Oxygen Flow Rate 2 2 05/17/22 20:24 05/18/22 05:34 Temperature 96.9 F L 99.6 F Pulse Rate 64 65 Respiratory Rate 14 16 Blood Pressure 115/38 L 145/53 H Pulse Oximetry 90 93 Oxygen Delivery Oxygen Flow Rate Intake/Output Intake/Output: Intake & Output 05/15/22 05/16/22 05/17/22 05/18/22 23:59 23:59 23:59 23:59 Intake Total 319 380 4943 500 Output Total 890 750 450 Balance 790 -140 1135 50 Meds/Results Medications: Active Medications Generic Name Dose Route Start Last Admin Trade Name Freq PRN Reason Stop Do
[2022-05-18] MEDS: MORPHINE SULFATE (*CRX) 4 MG/ML INJ 3 MG IV PUSH (08:41)
[2022-05-18] MEDS: polyethylene glycoL 3350 17 GM POWD.PACK PO (08:45)
[2022-05-18] MEDS: busPIRone HCL 5 MG TABLET 15 MG PO ×2 (08:45→16:47)
[2022-05-18] MEDS: SENNA/DOCUSATE SODIUM TABLET 2 TAB PO ×2 (08:46→16:47)
[2022-05-18] MEDS: CHLORTHALIDONE 25 MG TABLET PO (08:46)
[2022-05-18] MEDS: CHOLECALCIFEROL 1,000 UNITS TABLET 1000 UNITS PO (08:46)
[2022-05-18] MEDS: PARoxetine 10 MG TABLET 30 MG PO ×2 (08:47→16:47)
[2022-05-18] MEDS: amLODIPine BESYLATE 5 MG TABLET 10 MG PO (08:47)
[2022-05-18] MEDS: FOLIC ACID 1 MG TABLET PO (08:47)
[2022-05-18] MEDS: LOSARTAN POTASSIUM 100 MG TABLET PO (08:47)
[2022-05-18] MEDS: DOCUSATE SODIUM 100 MG CAPSULE PO ×2 (08:48→16:47)
[2022-05-18] MEDS: FAMOTIDINE 20 MG TABLET PO ×2 (08:48→21:57)
[2022-05-18] MEDS: FONDAPARINUX SODIUM 2.5 MG/0.5 ML SYRINGE SUB-Q (08:48)
[2022-05-18] MEDS: carvediloL 25 MG TABLET PO ×2 (08:49→21:57)
[2022-05-18] MEDS: FUROSEMIDE INJ 40 MG/4 ML VIAL IV PUSH (09:30)
--- NOTE | 2022-05-18 10:00 | PM.PNORT ---
Progress Note: A&P Assessment and Plan (1) Closed intertrochanteric fracture of left femur: Qualifiers: Encounter type: initial encounter Fracture alignment: displaced Qualified Code(s): S72.142A - Displaced intertrochanteric fracture of left femur, initial encounter for closed fracture Code(s): S72.142A - Displaced intertrochanteric fracture of left femur, initial encounter for closed fracture Status: Acute Assessment and Plan: POD #2: Left hip intramedullary trochanteric nail Continue PT/OT. WBAT. Walker. HIGH FALL RISK. Continue pain control. Ice hip. Protect skin. DVT prophylaxis with Arixtra x14 days total. SCDs. Incentive Spirometry Use reviewed. Monitor Dressing. Change today. Okay to transition to Mepilex Silver, nursing notified. Bowel Regimen. Dispo: [facility] vs SNF for further rehab. Subjective Subjective Date/Time Seen: 05/18/22 10:00 Post Op day: 2 Interval history: POD #2: Left hip intramedullary trochanteric nail Patient doing well. Pain improved today. No new concerns. Review of Systems Constitutional: Constitutional: Denies chills, Denies fatigue, Denies fever(s), Denies night sweats and Denies weakness Cardiovascular: Cardiovascular: Denies chest pain, Denies lightheadedness, Denies palpitations and Denies dyspnea Respiratory: Respiratory: Denies cough, Denies dyspnea and Denies wheezing Gastrointestinal: Gastrointestinal: Denies abdominal pain, Denies diarrhea, Denies nausea and Denies vomiting Musculoskeletal: Musculoskeletal: Reports arthralgias (left hip ), Reports joint swelling (left hip ) and Denies numbness Neurologic: Denies numbness and Denies weakness Endocrine: Endocrine: Denies fatigue and Denies palpitations Allergic/Immunologic: Allergic/Immunologic: Denies wheezing Exam Const: General: comfortable and no acute distress Orientation/consciousness: patient oriented x3 Limitations: no limitations Resp: Effort & Inspection: normal respiratory effort Cardio: Rate: regular rate Rhythm: regular rhythm GI: Inspection: non-distended Skin: General skin exam: normal color and wounds noted (incision left hip C/D/I ) Wounds: wounds noted (incision left hip C/D/I ) Neuro: General: patient oriented x3 Extrem: Left lower extremity: hip/thigh Details: tenderness Location: of the hip Location: laterally and anteriorly, swelling (thigh soft ) Location: of the hip (lateral. ), abnormal ROM (limitations with internal/external rotation and flexion/extension due to recent surgical intervention ) and other (incision lateral hip c/d/i. ), knee Details: normal to inspection and normal ROM; no tenderness and no swelling, lower leg (Negative Caitlyn's Sign ) Details: no edema, ankle (+ankle dorsiflexion/plantarflexion ) Details: normal to inspection, no edema and normal ROM; no tenderness, no swelling and no warmth and foot Details: normal capillary refill, toes with normal ROM, vascular exam Details: dorsalis pedis pulse present and motor-sensory exam light-touch normal in all toes; no tenderness, no ecchymosis and no crepitus Psych: Mental Status: mental status grossly normal Affect: normal affect Objective Data Vital Signs Vital Signs: Vital Signs - 24 hr 05/17/22 11:46 05/17/22 13:56 05/17/22 20:24 Temperature 35.7 C L 36.1 C L Pulse Rate 96 64 Respiratory Rate 16 14 Blood Pressure 115/48 L 115/38 L Pulse Oximetry 100 90 Oxygen Delivery Nasal Cannula Oxygen Flow Rate 2 05/18/22 05:34 05/18/22 08:49 Temperature 37.6 C Pulse Rate 65 68 Respiratory Rate 16 Blood Pressure 145/53 H Pulse Oximetry 93 Oxygen Delivery Oxygen Flow Rate Intake/Output Intake/Output: Intake & Output 05/15/22 05/16/22 05/17/22 05/18/22 23:59 23:59 23:59 23:59 Intake Total 178 161 3119 740 Output Total 890 750 450 Balance 790 -140 1135 290 Meds/Results Medications: Active Medications Generic Name Dose Route Start Last Admin Trade
[2022-05-18 14:09] LABS: Alanine Aminotransferase 17 U/L (6-50); Albumin Level 3.6 g/dL (3.5-5.1); Alkaline Phosphatase 43 U/L (38-126); Anion Gap 13 mmol/L (8-16); Aspartate Amino Transferase 149 U/L (17-59); Bilirubin,Total 0.6 mg/dL (0.2-1.3); Blood Urea Nitrogen 39 mg/dL (9-20); Calcium 8.6 mg/dL (8.4-10.2); Carbon Dioxide 29 mmol/L (22-30); Chloride 95 mmol/L (98-107); Estimated CRCL calculation 30 ml/min; Estimated Glomerular Filt Rate 25; Glucose 113 mg/dL (65-110); Potassium 3.3 mmol/L (3.4-5.0); Sodium 137 mmol/L (137-145)
[2022-05-19] MEDS: oxyCODONE/ACETAMINOPHEN (*CRX) 10-325 MG TABLET 1 TAB PO ×2 (05:22→15:30)
[2022-05-19 06:00] VITALS: BP 114/46; PULSE 66; RESP 18; TEMP 36.3; O2SAT 100
[2022-05-19 06:48] LABS: Basophils Percent Auto 0.3 % (0.2-1.2); Eosinophils Absolute Auto 0.1 K/mm3 (0-0.3); Eosinophils Percent Auto 1.4 % (0-4.4); Hematocrit 25.6 % (42.0-52.0); Hemoglobin 8.7 g/dL (14.0-18.0); Immature Granulocyte Absolute 0.03 K/mm3 (0.00-0.031); Immature Granulocyte Percent A 0.5 % (0-0.5); Lymphocytes Absolute Auto 0.44 K/mm3 (0.9-3.2); Lymphocytes Percent Auto 7.7 % (18.3-44.2); Mean Corpuscular Hemoglobin 36.6 pg (26-34); Mean Corpuscular Volume 107.6 fl (80-100); Mean Platelet Volume 11.4 fl (7.4-10.4); Monocytes Absolute Auto 0.9 K/mm3 (0.1-0.6); Monocytes Percent Auto 15.2 % (2.6-8.5); Neutrophils Absolute Auto 4.3 K/mm3 (1.3-6.7); Neutrophils Percent Auto 74.9 % (45.5-73.1); Platelet Count Result 141 k/mm3 (150-375); Red Blood Count 2.38 M/mm3 (4.6-6.20); Red Cell Distribution Width 13.4 % (11.5-14.5); White Blood Count 5.7 K/mm3 (4.5-10.0)
[2022-05-19 07:01] LABS: Alanine Aminotransferase 14 U/L (6-50); Albumin Level 3.3 g/dL (3.5-5.1); Alkaline Phosphatase 48 U/L (38-126); Anion Gap 13 mmol/L (8-16); Aspartate Amino Transferase 112 U/L (17-59); Bilirubin,Total 0.5 mg/dL (0.2-1.3); Blood Urea Nitrogen 44 mg/dL (9-20); Calcium 8.7 mg/dL (8.4-10.2); Carbon Dioxide 28 mmol/L (22-30); Chloride 96 mmol/L (98-107); Estimated CRCL calculation 33 ml/min; Estimated Glomerular Filt Rate 28; Glucose 128 mg/dL (65-110); Potassium 3.2 mmol/L (3.4-5.0); Sodium 137 mmol/L (137-145)
[2022-05-19] MEDS: polyethylene glycoL 3350 17 GM POWD.PACK PO (08:33)
[2022-05-19] MEDS: FONDAPARINUX SODIUM 2.5 MG/0.5 ML SYRINGE SUB-Q (08:34)
[2022-05-19] MEDS: LOSARTAN POTASSIUM 100 MG TABLET PO (08:34)
[2022-05-19] MEDS: CHOLECALCIFEROL 1,000 UNITS TABLET 1000 UNITS PO (08:34)
[2022-05-19] MEDS: busPIRone HCL 5 MG TABLET 15 MG PO ×2 (08:35→17:15)
[2022-05-19] MEDS: SENNA/DOCUSATE SODIUM TABLET 2 TAB PO ×2 (08:35→17:16)
[2022-05-19] MEDS: PARoxetine 10 MG TABLET 30 MG PO ×2 (08:35→17:17)
[2022-05-19 08:37] VITALS: PULSE 66
[2022-05-19] MEDS: carvediloL 25 MG TABLET PO ×2 (08:37→22:46)
[2022-05-19] MEDS: amLODIPine BESYLATE 5 MG TABLET 10 MG PO (08:37)
[2022-05-19] MEDS: CHLORTHALIDONE 25 MG TABLET PO (08:37)
[2022-05-19] MEDS: DOCUSATE SODIUM 100 MG CAPSULE PO ×2 (08:37→17:18)
[2022-05-19] MEDS: FAMOTIDINE 20 MG TABLET PO ×2 (08:38→22:46)
[2022-05-19] MEDS: FOLIC ACID 1 MG TABLET PO (08:38)
--- NOTE | 2022-05-19 09:19 | PM.IMPN ---
Progress Note: A&P Assessment and Plan (1) Closed intertrochanteric fracture of left femur: Qualifiers: Encounter type: initial encounter Fracture alignment: displaced Qualified Code(s): S72.142A - Displaced intertrochanteric fracture of left femur, initial encounter for closed fracture Code(s): S72.142A - Displaced intertrochanteric fracture of left femur, initial encounter for closed fracture Status: Acute Assessment and Plan: Postop day 3 hip fracture repair, left hip intramedullary trochanteric nail DVT prophylaxis per surgery Care coordination arranging inpatient rehab at discharge (2) Macrocytic anemia: Code(s): D53.9 - Nutritional anemia, unspecified Status: Acute Assessment and Plan: Stable between 9 and 11, continue to monitor (3) Fall from ground level: Code(s): W18.30XA - Fall on same level, unspecified, initial encounter Status: Acute Assessment and Plan: PT/OT consult (4) Hypertension: Code(s): I10 - Essential (primary) hypertension Status: Acute Assessment and Plan: Stable (5) Chronic kidney disease: Code(s): N18.9 - Chronic kidney disease, unspecified Status: Acute Assessment and Plan: A little worse today, will give a bolus and see the response, repeat BMP later today (6) Psoriatic arthritis: Code(s): L40.50 - Arthropathic psoriasis, unspecified Status: Acute Assessment and Plan: receives outpatient humira injections (7) History of prostate cancer: Code(s): Z85.46 - Personal history of malignant neoplasm of prostate Status: Acute Assessment and Plan: history of prostatectomy, now with chronic urinary incontinence, at baseline, monitor (8) Altered mental status: Code(s): R41.82 - Altered mental status, unspecified Status: Resolved Assessment and Plan: Resolved, likely secondary to anesthesia Plan DVT prophylaxis with SCDs GI prophylaxis not indicated Code status full code Subjective Date/time seen: 05/19/22 09:19 Interval history: No overnight events noted. No chest pain or shortness of breath. No nausea, vomiting or diarrhea. No fevers or chills. Patient states his altered mental status symptoms are all resolved. He had had some intermittent confusion hallucinations, these are completely resolved at this time. Review of Systems Review of Systems: 12 point review of systems was assessed and was negative except as noted in the HPI Exam Narrative: General: No acute distress, alert and oriented per baseline HEENT: Atraumatic, normocephalic, mucous membranes moist CV: Regular rate and rhythm, S1, S2 Lungs: Clear to auscultation bilaterally, no rales or crackles noted, no wheezes, good air entry Abdomen: Soft, nontender, nondistended Extremities: Normal to inspection Skin: No rashes noted, no lesions or wounds seen Psych: Euthymic, normal affect Objective Data Vital Signs Vital Signs: Vital Signs - 24 hr 05/18/22 13:56 05/18/22 21:57 05/18/22 22:00 Temperature 96.9 F L 96.9 F L Pulse Rate 70 72 72 Respiratory Rate 22 H 18 Blood Pressure 117/43 L 92/77 L Pulse Oximetry 96 97 05/19/22 06:00 05/19/22 08:37 Temperature 97.4 F L Pulse Rate 66 66 Respiratory Rate 18 Blood Pressure 114/46 L Pulse Oximetry 100 Intake/Output Intake/Output: Intake & Output 05/16/22 05/17/22 05/18/22 05/19/22 23:59 23:59 23:59 23:59 Intake Total 750 1885 2210 Output Total 473 150 2233 500 Balance -140 1135 90 -500 Meds/Results Medications: Active Medications Generic Name Dose Route Start Last Admin Trade Name Maren PRN Reason Stop Dose Admin Acetaminophen 650 mg 05/16/22 18:39 05/17/22 06:10 Acetaminophen 325 Mg Tablet PO 650 mg Q6H PRN Administration Mild Pain (1-3) or Fever Al Hydrox/Mg Hydrox/Simethicone 30 ml 05/16/22 18:39 Mag Hydrox/Al Hydrox/Simeth 30 Ml Udc PO
[2022-05-19] MEDS: POTASSIUM CHLORIDE 20 MEQ TABLET 40 MEQ PO (10:12)
[2022-05-19] MEDS: FUROSEMIDE INJ 40 MG/4 ML VIAL IV PUSH (10:13)
[2022-05-19 10:34] VITALS: O2SAT 94
--- NOTE | 2022-05-19 13:00 | PCPTNOTE ---
Patient refused treatment this session due to being tired and wanting a nap. Will attempt again.
[2022-05-19 14:14] LABS: Anion Gap 13 mmol/L (8-16); Blood Urea Nitrogen 50 mg/dL (9-20); Calcium 8.8 mg/dL (8.4-10.2); Carbon Dioxide 30 mmol/L (22-30); Chloride 94 mmol/L (98-107); Estimated CRCL calculation 29 ml/min; Estimated Glomerular Filt Rate 24; Glucose 115 mg/dL (65-110); Potassium 3.4 mmol/L (3.4-5.0); Sodium 137 mmol/L (137-145)
[2022-05-19] MEDS: SODIUM CHLORIDE 0.9% IV 1,000 ML 999 ML IV CONT (15:21)
[2022-05-19 17:18] LABS: Anion Gap 9 mmol/L (8-16); Blood Urea Nitrogen 50 mg/dL (9-20); Calcium 8.8 mg/dL (8.4-10.2); Carbon Dioxide 30 mmol/L (22-30); Chloride 96 mmol/L (98-107); Estimated CRCL calculation 33 ml/min; Estimated Glomerular Filt Rate 28; Glucose 106 mg/dL (65-110); Potassium 3.3 mmol/L (3.4-5.0); Sodium 135 mmol/L (137-145)
[2022-05-19 22:00] VITALS: BP 103/51; PULSE 67; RESP 18; TEMP 36.1; O2SAT 89
[2022-05-20 05:53] VITALS: BP 125/58; PULSE 75; RESP 20; TEMP 36.6; O2SAT 97
[2022-05-20 06:52] LABS: Basophils Percent Auto 0.3 % (0.2-1.2); Eosinophils Absolute Auto 0.1 K/mm3 (0-0.3); Hematocrit 27.4 % (42.0-52.0); Hemoglobin 9.2 g/dL (14.0-18.0); Immature Granulocyte Absolute 0.03 K/mm3 (0.00-0.031); Immature Granulocyte Percent A 0.5 % (0-0.5); Lymphocytes Absolute Auto 0.54 K/mm3 (0.9-3.2); Mean Corpuscular HGB Conc 33.6 g/dl (32-36); Mean Corpuscular Hemoglobin 36.4 pg (26-34); Mean Corpuscular Volume 108.3 fl (80-100); Mean Platelet Volume 11.7 fl (7.4-10.4); Monocytes Absolute Auto 0.8 K/mm3 (0.1-0.6); Monocytes Percent Auto 13.4 % (2.6-8.5); Neutrophils Absolute Auto 4.5 K/mm3 (1.3-6.7); Neutrophils Percent Auto 74.8 % (45.5-73.1); Platelet Count Result 151 k/mm3 (150-375); Red Blood Count 2.53 M/mm3 (4.6-6.20); Red Cell Distribution Width 13.2 % (11.5-14.5)
[2022-05-20 07:01] LABS: Alanine Aminotransferase 15 U/L (6-50); Albumin Level 3.5 g/dL (3.5-5.1); Alkaline Phosphatase 64 U/L (38-126); Anion Gap 10 mmol/L (8-16); Aspartate Amino Transferase 95 U/L (17-59); Bilirubin,Total 0.5 mg/dL (0.2-1.3); Blood Urea Nitrogen 51 mg/dL (9-20); Carbon Dioxide 32 mmol/L (22-30); Chloride 96 mmol/L (98-107); Estimated CRCL calculation 31 ml/min; Estimated Glomerular Filt Rate 27; Glucose 122 mg/dL (65-110); Potassium 3.4 mmol/L (3.4-5.0); Sodium 138 mmol/L (137-145)
--- NOTE | 2022-05-20 08:20 | PM.DS ---
DS: Admitting Diagnosis Discharge Date May 20, 2022 Admitting Diagnosis Hip fracture DS: Discharge Diagnosis Discharge Diagnosis (1) Closed intertrochanteric fracture of left femur: Qualifiers: Encounter type: initial encounter Fracture alignment: displaced Qualified Code(s): S72.142A - Displaced intertrochanteric fracture of left femur, initial encounter for closed fracture Code(s): S72.142A - Displaced intertrochanteric fracture of left femur, initial encounter for closed fracture Status: Acute Assessment and Plan: Postop day 3 hip fracture repair, left hip intramedullary trochanteric nail DVT prophylaxis per surgery Care coordination arranging inpatient rehab at discharge (2) Macrocytic anemia: Code(s): D53.9 - Nutritional anemia, unspecified Status: Acute Assessment and Plan: Stable between 9 and 11, continue to monitor (3) Fall from ground level: Code(s): W18.30XA - Fall on same level, unspecified, initial encounter Status: Acute Assessment and Plan: PT/OT consult (4) Hypertension: Code(s): I10 - Essential (primary) hypertension Status: Acute Assessment and Plan: Stable (5) Chronic kidney disease: Code(s): N18.9 - Chronic kidney disease, unspecified Status: Acute Assessment and Plan: A little worse today, will give a bolus and see the response, repeat BMP later today (6) Psoriatic arthritis: Code(s): L40.50 - Arthropathic psoriasis, unspecified Status: Acute Assessment and Plan: receives outpatient humira injections (7) History of prostate cancer: Code(s): Z85.46 - Personal history of malignant neoplasm of prostate Status: Acute Assessment and Plan: history of prostatectomy, now with chronic urinary incontinence, at baseline, monitor (8) Altered mental status: Code(s): R41.82 - Altered mental status, unspecified Status: Resolved Assessment and Plan: Resolved, likely secondary to anesthesia Plan DVT prophylaxis with SCDs GI prophylaxis not indicated Code status full code DS: Summary Hospital Course Hospital Course: 77-year-old male with hypertension, chronic kidney disease, psoriatic arthritis, and history of prostate cancer who presented to the emergency department via EMS from home for evaluation of left hip pain after a fall. Not long prior to arrival he and outside to fetch the trash can and while pulling it into the garage from the side door, he lost his footing and landed hard onto his left hip on the concrete floor. He was unable to get himself up on even with help from his , and EMS was summoned. Imaging in the ED demonstrated a left intertrochanteric fracture and he is being admitted in this setting. He complains of significant spasms around the left hip, rated 6/10. Hydromorphone and diazepam given in the ED have helped but their are wearing off. He sustained no other injuries in the fall and there was no head trauma or loss of consciousness. There is no numbness, tingling, or skin colored or temperature changes distal to the fracture site. Patient went to the OR on May 16, 2022 with orthopedic surgery for left hip intertrochanteric fracture reduction with insertion of trochanteric nail. Creatinine fluctuated quite a bit postoperatively, did not appear to be responsive to fluid or Lasix. Suspect patient has new baseline of 2.2-2.4 in his creatinine, was 1.8-2 prior to surgery. Will monitor this closely over the next few weeks with weekly BMPs. Time Spent with Patient Time attestation: Total time spent providing and/or coordinating discharge services: Exam Narrative: General: No acute distress, alert and oriented per baseline HEENT: Atraumatic, normocephalic, mucous membranes moist CV: Regular rate and rhythm, S1, S2 Lungs: Clear to auscultation bilaterally, no rales or crackles noted, no wheezes, good air entry Abdom
[2022-05-20 08:57] VITALS: O2SAT 91
[2022-05-20] MEDS: DOCUSATE SODIUM 100 MG CAPSULE PO ×2 (08:57→17:00)
[2022-05-20] MEDS: oxyCODONE/ACETAMINOPHEN (*CRX) 10-325 MG TABLET 1 TAB PO (08:57)
[2022-05-20] MEDS: FOLIC ACID 1 MG TABLET PO (08:59)
[2022-05-20] MEDS: FAMOTIDINE 20 MG TABLET PO (08:59)
[2022-05-20] MEDS: PARoxetine 10 MG TABLET 30 MG PO ×2 (08:59→17:00)
[2022-05-20] MEDS: LOSARTAN POTASSIUM 100 MG TABLET PO (08:59)
[2022-05-20] MEDS: amLODIPine BESYLATE 5 MG TABLET 10 MG PO (09:00)
[2022-05-20] MEDS: busPIRone HCL 5 MG TABLET 15 MG PO ×2 (09:00→17:00)
[2022-05-20] MEDS: SENNA/DOCUSATE SODIUM TABLET 2 TAB PO ×2 (09:01→17:00)
[2022-05-20] MEDS: CHOLECALCIFEROL 1,000 UNITS TABLET 1000 UNITS PO (09:01)
[2022-05-20] MEDS: CHLORTHALIDONE 25 MG TABLET PO (09:02)
[2022-05-20] MEDS: FONDAPARINUX SODIUM 2.5 MG/0.5 ML SYRINGE SUB-Q (09:02)
[2022-05-20] MEDS: carvediloL 25 MG TABLET PO (09:02)
[2022-05-20 14:21] VITALS: BP 128/59; PULSE 65; RESP 18; TEMP 36.2; O2SAT 94
[2022-05-20 16:26] LABS: EDCOVIDSCREEN Negative (Negative)
--- NOTE | 2022-05-20 18:08 | PC.NURSE ---
Sent Patients home med Sulfafalazine with him.
== END 2022-05-20 19:30 | DRG 482 ==
LOC: ANHED 14:02 → ANH3MEDSUR 14:46
PROVIDERS: Orthopaedic Surgery; Physician Assistant; Admitting Provider Hospitalist; Emergency Provider Emergency Medicine; Visit Provider Student in an Organized Health Care Education/Training Program
PROC: 0QS736Z Reposition Left Upper Femur with Intramedullary Internal Fixation Device, Percutaneous Approach (ICD-10-PCS; CPT 27245; principal; 2022-05-16 15:30)
DX: S72.142A Displaced intertrochanteric fracture of left femur, initial encounter for closed fracture (principal); W01.0XXA Fall on same level from slipping, tripping and stumbling without subsequent striking against object, initial encounter; L40.50 Arthropathic psoriasis, unspecified; I12.9 Hypertensive chronic kidney disease with stage 1 through stage 4 chronic kidney disease, or unspecified chronic kidney disease; N18.9 Chronic kidney disease, unspecified; D53.9 Nutritional anemia, unspecified; N39.498 Other specified urinary incontinence; R41.82 Altered mental status, unspecified; T41.45XA Adverse effect of unspecified anesthetic, initial encounter; Z20.822 Contact with and (suspected) exposure to COVID-19; Z28.21 Immunization not carried out because of patient refusal; Z79.899 Other long term (current) drug therapy; Z85.46 Personal history of malignant neoplasm of prostate; Z87.891 Personal history of nicotine dependence
CPT/HCPCS: 36415; 71045; 73502; 80048; 80053; 82607; 82728; 82746; 83540; 83550; 83735; 84443; 85025; 85027; 85055; 85610; 85730; 87426; 93005; 96374; 96375; 96376; 97110; 97116; 97161; 97165; 97530; 97535; 99199; 99285; A9270; C1713; C9803; G0378; J0690; J1100; J1170; J1652; J1940; J2270; J2370; J2405; J2704; J3010; J3360; J7030; J7120; U0003; U0005

== ENCOUNTER 2022-06-17 12:33 | Inpatient (IN) | payer MEDICARE, OTHER, SELFPAY ==
[2022-06-17] VITALS (41 sets, daily range): BP systolic 95–164; BP diastolic 52–106; PULSE 83–104; RESP 16–39; TEMP 36.3–37.2; O2SAT 86–100; BMI 40.5
--- NOTE | ~2022-06-17 | US_ITS ---
EXAMINATION: US retroperitoneal comp DATE: 06/18/2022 09:02 INDICATION: Hematuria. TECHNIQUE: Multiple ultrasound grayscale images of the kidneys were obtained. COMPARISON: None. FINDINGS: The right kidney measures 12.1 x 7.1 x 6.8 cm. The left kidney measures 13.4 x 7.1 cm. The kidneys de monstrate normal echogenicity. Bilateral anechoic renal cysts measuring up to 4.1 cm on the right and 5.5 cm 4.3 cm on the left. There is no hydronephrosis in either kidney. No stones identified. Irreg ular contour to the base of the bladder where there is approximately 7.8 x 6.1 cm masslike filling de fect with lobular margins and heterogeneous echogenicity with scattered echogenic foci. This could be related to clot within the bladder, prostatomegaly impressing upon the base of the bladder or a prim judith bladder cancer. IMPRESSION: 1. Bilateral renal cysts. Otherwise normal kidneys without hydronephrosis. 2. Masslike filling defect along the inferior wall to the bladder with differential including clot, n odular prostatomegaly or primary bladder cancer. Correlate with urinalysis and consider cystoscopy fo r further evaluation. Reviewed, dictated and finalized at location A. [employer] DEVELOPMENT IMPRESSION: 1. Bilateral renal cysts. Otherwise normal kidneys without hydronephrosis. 2. Masslike filling defect along the inferior wall to the bladder with differen tial including clot, nodular prostatomegaly or primary bladder cancer. Correlat e with urinalysis and consider cystoscopy for further evaluation.
--- NOTE | ~2022-06-17 | US_ITS ---
Renal-Bladder ultrasound Clinical History: Chronic kidney disease, hematuria Technique: Real-time sonographic imaging of the kidneys and urinary bladder was performed. Findings: The right kidney measures 10.4 cm in length and the left kidney measures 13.3 cm. There is no hydronephrosis or renal calculus identified. Renal cortical echogenicity is within normal limits. No solid renal mass lesion is identified. Bilateral renal cysts are noted. The urinary bladder is partially distended, with Mondragon catheter in place. No definite wall thickening or mass lesion. Impression: No hydronephrosis. Bilateral renal cysts. Mondragon catheter. Reviewed, dictated and finalized at location [] PATTERN MAKER Impression: No hydronephrosis. Bilateral renal cysts. Mondragon catheter.
--- NOTE | ~2022-06-17 | XR_ITS ---
EXAMINATION: XR chest 2V DATE: 06/17/2022 13:01 INDICATION: Shortness of breath. Hematuria. TECHNIQUE: Frontal and lateral views of the chest were obtained. COMPARISON: Chest single view 05/15/2022, chest 2 views 12/17/2012 FINDINGS: The lung volumes are small. There are interstitial opacities in left lower lung zone. No pl eural effusion or pneumothorax. The heart size is normal. Again seen is a 5 mm radiopaque foreign bod y overlying the right midlung zone on the frontal view that is likely in the chest wall. IMPRESSION: 1. Persistently small lung volumes 2. Interstitial opacities in left lower lung zone, consistent with atelectasis versus chronic interst itial lung disease. Reviewed, dictated and finalized at location A. LOPMENT SCIENTIST IMPRESSION: 1. Persistently small lung volumes 2. Interstitial opacities in left lower lung zone, consistent with atelectasis versus chronic interstitial lung disease.
--- NOTE | ~2022-06-17 | CT_ITS ---
EXAMINATION: CT chest abdomen pelvis wo con DATE: 06/19/2022 09:41 INDICATION: Pneumonia. Abdominal pain. TECHNIQUE: Computed tomography (CT) of the chest, abdomen, and pelvis was performed without intraveno us contrast. Automated exposure control and iterative reconstruction technique were employed. The dos e-length product was 1807.81 mGy-cm. COMPARISON: Ultrasound kidneys 06/18/2022 FINDINGS: CHEST CT: The lung volumes are small with relative mild elevation of left hemidiaphragm. There is mild emphysem a. There is mild bronchiectasis in right lower lobe. There is mild atelectasis bilaterally. There are small left and trace right pleural effusions. The heart size is normal. There are coronary artery ca lcifications. No pericardial effusion. The central pulmonary arteries are enlarged, consistent with p ulmonary arterial hypertension. There is mild bilateral gynecomastia. ABDOMEN/PELVIS CT: The liver, gallbladder, spleen, pancreas, and adrenal glands are normal. There are cysts in the kidne ys measuring up to 4.9 cm on the left. There is an 8 mm hemorrhagic cyst in left kidney. There is a 1 4 mm mass in left kidney measuring soft tissue attenuation. There is a parenchymal calcification in l eft kidney. There is no urolithiasis. The bladder is decompressed by a Mondragon catheter. There are brac hytherapy seeds in the prostate. There is a small volume of hyperdense material in the bladder lumen, consistent with hematoma. There are bilateral inguinal hernias containing fat. There are no dilated loops of bowel. The appendix is normal. There is a widemouthed supraumbilical ventral hernia containi ng a wall of nonobstructed small bowel. There are no pathologically enlarged lymph nodes. There is no free intraperitoneal fluid. 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 There is a comminuted intertrochanteric fracture of proximal left femu r with internal fixation with intramedullary misty and femoral head/neck screw. IMPRESSION: 1. Small left pleural effusion. 2. Small lung volumes with mild atelectasis bilaterally. 3. Mild emphysema. 4. Widemouthed supraumbilical ventral hernia containing a wall of nonobstructed small bowel. 5. Small volume of hematoma in the bladder. 6. 14 mm left kidney mass measuring soft tissue attenuation, which may be a hemorrhagic cyst or less likely a neoplasm. Abdomen MRI without and with contrast is recommended. Reviewed, dictated and finalized at location A. NE STEWARD IMPRESSION: 1. Small left pleural effusion. 2. Small lung volumes with mild atelectasis bilaterally. 3. Mild emphysema. 4. Widemouthed supraumbilical ventral hernia containing a wall of nonobstructed small bowel. 5. Small volume of hematoma in the bladder. 6. 14 mm left kidney mass measuring soft tissue attenuation, which may be a hem orrhagic cyst or less likely a neoplasm. Abdomen MRI without and with contrast is recommended.
--- NOTE | 2022-06-17 12:46 | ECG_ITS ---
Measurements Intervals [place] Rate: 80 P: 3 KS: 164 QRS: -41 QRSD: 106 T: 18 QT: 367 QTc: 426 Interpretive Statements SINUS RHYTHM WITH OCCASIONAL SUPRAVENTRICULAR PREMATURE COMPLEXES LEFT ANTERIOR HEMIBLOCK ABNORMAL ECG COMPARED TO ECG 05/15/2022 12:46:42 NO CHANGE Electronically Signed On 06-18-2022 6:16:01 SHAREMILKER by Israel Dillon M.D.
--- NOTE | 2022-06-17 13:09 | ED.GENADULT ---
HPI - General Adult General Chief complaint: Unspecified Stated complaint: SOB Time Seen by Provider: 06/17/22 12:40 History of Present Illness HPI narrative: This is a 77-year-old male with past medical history of CKD, prostate cancer and hypertension, presenting to the emergency department complaining of cough and shortness of breath for the past week. He states was he was in his usual state of health after surgical repair of the left hip status post intertrochanteric fracture, when he developed cough productive of mucus without blood and dyspnea on exertion. He denies any associated pain, nausea or vomiting. He also noted blood in the urine beginning yesterday. He states he has had this before with his prostate cancer but not to this extent. He denies pain with urination, fevers, chills or abdominal pain. Related Data Home Medications Medication Instructions Recorded Confirmed amlodipine 10 mg tablet 10 mg PO BID 05/15/22 05/20/22 buspirone 15 mg tablet 15 mg PO BID 05/15/22 05/20/22 carvedilol 25 mg tablet 25 mg PO BID 05/15/22 05/20/22 chlorthalidone 25 mg tablet 25 mg PO DAILY 05/15/22 05/20/22 cholecalciferol (vitamin D3) 25 25 mcg PO DAILY 05/15/22 05/20/22 mcg (1,000 unit) capsule docusate sodium 100 mg capsule 100 mg PO BID 05/15/22 05/20/22 folic acid 1 mg tablet 1 mg PO DAILY 05/15/22 05/20/22 losartan 100 mg tablet 100 mg PO DAILY 05/15/22 05/20/22 sulfasalazine 500 mg 0.5 g PO BID 05/15/22 05/20/22 tablet,delayed release Allergies Allergy/AdvReac Type Severity Reaction Status Date / Time No Known Allergies Allergy Verified 06/17/22 12:45 Review of Systems Review of Systems: CONSTITUTIONAL: Chills denies fever, or sweats. EYES: Denies visual changes, redness, or discharge. ENT: Rhinorrhea denies congestion, sore throat, or otalgia. CARDIOVASCULAR: Denies chest pain, palpitations, or edema. RESPIRATORY: Nonproductive cough and dyspnea GASTROINTESTINAL: Denies abdominal pain, nausea, vomiting, or diarrhea. GENITOURINARY: Hematuria denies dysuria SKIN: Denies rash or itching. MUSCULOSKELETAL: Denies back pain, joint pain, or myalgia. NEUROLOGIC: Denies headache, numbness, dizziness, or weakness. PSYCHIATRIC: Denies anxiety or depression. [facility] Past Medical History Medical History (Updated 06/17/22 @ 15:38 by Trenton Lozano MD) Anxiety Chronic kidney disease History of prostate cancer Status post prostatectomy. Hypertension Psoriatic arthritis War injury due to shrapnel Surgical History Surgical History (Updated 06/17/22 @ 15:28 by Alia Logan PA-C) History of carpal tunnel release History of open reduction and internal fixation (ORIF) procedure (05/16/22) Repair of left hip fracture with intertrochanteric nail. History of prostatectomy History of wisdom tooth extraction Family History Family History Mother Diabetes mellitus Pancreatic cancer Father Glioblastoma Social History Social History Social History: Surrogate medical decision maker: Genesis Mccollum, spouse. Code status: Full code. Smoking packs per day: 1 Smoking cigarettes per day: 20.0 Years smoked: 40 Smoking pack-years: 40.00 Smoking status: Former smoker Tobacco type: cigarettes Second hand tobacco smoke exposure: Yes Additional smoking assessment comments: Quit around 2013. Alcohol intake: current Drinks per week: 7 Alcohol use details: 1 shot of bourbon each night before bed. Substance use: never Substance use type: does not use Lack of Transportation: No Lack of Food: Never True Current Housing: I Have Housing Concerned About Future Housing: No Difficulty Paying Gas/Electric Bills: No Difficulty Paying for Meds: No Currently Unemployed: No Education: High School Diploma/GED Difficulty w/ Childcare or Family Care: No Additional living arrange
[2022-06-17 13:17] LABS: Hematocrit 27.4 % (42.0-52.0); Hemoglobin 9.2 g/dL (14.0-18.0); Immature Platelet Fraction Pct 9.9 % (0.9-11.2); Mean Corpuscular HGB Conc 33.6 g/dl (32-36); Mean Corpuscular Hemoglobin 34.6 pg (26-34); Mean Platelet Volume 11.5 fl (7.4-10.4); Platelet Count Result 142 k/mm3 (150-375); Red Blood Count 2.66 M/mm3 (4.6-6.20); White Blood Count 17.5 K/mm3 (4.5-10.0)
[2022-06-17 13:39] LABS: Band Neutrophils Percent 2 % (0-6); Lymphocytes Absolute Manual 0.35 K/mm3 (1.1-4.5); Monocytes Absolute Manual 0.35 K/mm3 (0.1-0.90); Monocytes Percent Manual 2 % (3-9); Neutrophils Percent Manual 94 % (46-73); Schistocytes None Seen (NORMAL); Total Cells Counted 100
[2022-06-17 13:48] LABS: Influenza A QL RT-PCR Negative (Negative); Influenza B QL RT-PCR Negative (Negative); SARS-CoV-2 RNA PCR Negative
[2022-06-17 14:28] LABS: Alanine Aminotransferase 20 U/L (6-50); Albumin Level 3.4 g/dL (3.5-5.1); Alkaline Phosphatase 104 U/L (38-126); Anion Gap 6 mmol/L (8-16); Aspartate Amino Transferase 30 U/L (17-59); Bilirubin,Total 0.4 mg/dL (0.2-1.3); Blood Urea Nitrogen 41 mg/dL (9-20); Calcium 8.9 mg/dL (8.4-10.2); Carbon Dioxide 28 mmol/L (22-30); Chloride 91 mmol/L (98-107); Estimated CRCL calculation 29 ml/min; Estimated Glomerular Filt Rate 24; Glucose 132 mg/dL (65-110); Potassium 2.5 mmol/L (3.4-5.0); Sodium 125 mmol/L (137-145)
[2022-06-17 14:36] LABS: Troponin I 0.041 ng/mL (0.000-0.034)
[2022-06-17 14:46] LABS: Magnesium 1.7 mg/dL (1.6-2.3)
[2022-06-17] MEDS: POTASSIUM CHLORIDE 20 MEQ TABLET 40 MEQ PO (15:08)
--- NOTE | 2022-06-17 15:30 | PM.IMHP ---
H&P: HPI History of Present Illness Date/Time: 06/17/22 15:30 Chief Complaint: Weakness. Narrative: This is a very pleasant 77-year-old male with hypertension, chronic kidney disease, psoriatic arthritis, anemia, and history of prostate cancer who presented to the emergency department via EMS from home for evaluation of weakness. He was recently in the hospital with a left hip fracture after a fall and was discharged to [facility] following left hip IT nail. He was discharged home on 06/04/2022 and both he and his had cold symptoms that 1st week. However he has a lingering cough productive of clear phlegm and mild dyspnea on exertion though he goes on to say that is not unusual for him. The last several days he has had urinary urgency and hesitancy and reports passing a small amount of blood in his urine a couple of days ago. Since that time he has not been able to empty his bladder much if at all. He has become increasingly weak and he was brought in today via EMS from home for evaluation. EMS was summoned on their arrival his SpO2 was 92 to 93% on room air and he was placed on 2 liters nasal cannula. Workup in the ED was significant for a WBC of 17.5, sodium 125, potassium 2.5, BUN 41, creatinine 2.60, troponin 0.041. He tested negative for influenza and COVID. Chest x-ray showed persistently small lung volumes with interstitial opacities in left lower lung zone. Mondragon catheter was inserted and he is feeling better now that his urine is draining though he is noted to be draining a large amount of dark red blood admixed with clots. He is being admitted in this setting for CBI and IV antibiotics. Review of Systems Review of Systems: Twelve systems were reviewed. No fever. No headache. No sinus congestion or sore throat. Residual cough as detailed above. He has chronic shortness of breath with exertion, even while speaking On occasion. He has never been formally diagnosed with asthma or COPD. He does not use inhalers or nebulizers at home. He denies paroxysmal nocturnal dyspnea, lower extremity edema, and calf pain/tenderness. No history of venous thromboembolism. No chest pain, pleuritic pain, or palpitations. He denies vomiting diarrhea. No lower abdominal or back pain. Except as documented, all other systems were reviewed and are negative. [facility] Past Medical History Medical History Anxiety Chronic kidney disease History of prostate cancer Status post prostatectomy. Hypertension Psoriatic arthritis War injury due to shrapnel Surgical History Surgical History (Updated 06/17/22 @ 15:28 by Alia Logan PA-C) History of carpal tunnel release History of open reduction and internal fixation (ORIF) procedure (05/16/22) Repair of left hip fracture with intertrochanteric nail. History of prostatectomy History of wisdom tooth extraction Family History Family History Mother Diabetes mellitus Pancreatic cancer Father Glioblastoma Social History Social History (Updated 06/17/22 @ 18:30 by Alia Logan PA-C) Social History: Surrogate medical decision maker: Genesis Mccollum, spouse. Code status: Full code. Smoking packs per day: 1 Smoking cigarettes per day: 20.0 Years smoked: 40 Smoking pack-years: 40.00 Smoking status: Former smoker Tobacco type: cigarettes Second hand tobacco smoke exposure: Yes Additional smoking assessment comments: Quit around 2013. Alcohol intake: current Drinks per week: 7 Alcohol use details: 1 shot of bourbon each night before bed. Substance use: never Substance use type: does not use Lack of Transportation: No Lack of Food: Never True Current Housing: I Have Housing Concerned About Future Housing: No Difficulty Paying Gas/Electric Bills: No Difficulty Paying for Meds: No Currently Unemployed: No Education: High School Diplom
[2022-06-17] MEDS: POTASSIUM CHLORIDE INJ 40 MEQ in SODIUM CHLORIDE 0.9% IV 500 ML 130 MEQ IVPB (15:45)
[2022-06-17 15:53] LABS: Add Urine Microscopic? YES; Appearance Urine Cloudy (Clear); Bilirubin Urine 1+ (Negative); Blood Urine 3+ (Negative); Color Urine Red (Yellow); Glucose Urine UA Negative (Negative); Ketones Urine Negative (Negative); Leukocyte Esterase Ur Negative LEU/UL (Negative); Nitrate Urine Negative (Negative); Protein Urine 3+ mg/dL (Negative); Specific Grav Ur <= 1.005 (1.001-1.035); Urobilinogen Urine 0.2 mg/dL (<2.0)
[2022-06-17 16:10] LABS: RBC Urine >75 /hpf (0-2)
[2022-06-17 17:35] LABS: Anion Gap 4 mmol/L (8-16); Blood Urea Nitrogen 61 mg/dL (9-20); Calcium 9.2 mg/dL (8.4-10.2); Carbon Dioxide 25 mmol/L (22-30); Chloride 101 mmol/L (98-107); Estimated CRCL calculation 35 ml/min; Estimated Glomerular Filt Rate 31; Glucose 97 mg/dL (65-110); Potassium 5.1 mmol/L (3.4-5.0); Sodium 130 mmol/L (137-145)
[2022-06-17 17:38] LABS: Troponin I 0.042 ng/mL (0.000-0.034)
--- NOTE | 2022-06-17 18:33 | PC.NURSE ---
Informed CLAUDIA Munguia that patient's urinary catheter is completely blocked by blood clots. Per Alia, she is placing an order to initiate continuous bladder irrigation. Informed receiving nurse that patient will need continuous bladder irrigation.
--- NOTE | 2022-06-17 20:20 | ADMGEN ---
This patient, Darrell Mccollum, was admitted to Medical Room 243-01. Patient/family oriented to hospital policies and general routines including ID bracelet, bed and alarms, visiting hours, pain management, procedures, bathroom and other care routines, personal items, smoking policy, room service/diet, and visiting hours. Information on how to activate the Rapid Response Team has been discussed. Patient/Family are encouraged to report perceived risks to care and to ask questions if they do not understand what they are told or what they should do.
[2022-06-17 20:30] LABS: Hematocrit 25.1 % (42.0-52.0); Hemoglobin 8.6 g/dL (14.0-18.0)
[2022-06-17 20:56] LABS: Troponin I 0.044 ng/mL (0.000-0.034)
[2022-06-18] VITALS (32 sets, daily range): BP systolic 96–144; BP diastolic 39–88; PULSE 59–101; RESP 18–24; TEMP 35.6–37.1; O2SAT 96–100
[2022-06-18] MEDS: SODIUM CHLORIDE 0.9% IV 1,000 ML 100 ML IV CONT ×2 (00:59→21:10)
[2022-06-18] MEDS: guaiFENesin 12 HR 600 MG TABCR PO ×2 (01:01→21:04)
[2022-06-18] MEDS: amLODIPine BESYLATE 5 MG TABLET 10 MG PO ×3 (01:02→21:02)
[2022-06-18] MEDS: busPIRone HCL 5 MG TABLET 15 MG PO ×3 (01:02→21:02)
[2022-06-18] MEDS: carvediloL 25 MG TABLET PO ×3 (01:03→21:03)
[2022-06-18] MEDS: DOCUSATE SODIUM 100 MG CAPSULE PO ×2 (01:04→21:03)
[2022-06-18] MEDS: sulfaSALAzine 500 MG TABLET PO (01:05)
[2022-06-18] MEDS: ALBUTEROL SULFATE NEB 2.5 MG/3 ML INH INHALATION ×4 (02:28→20:02)
[2022-06-18] MEDS: IPRATROPIUM BR 0.02% INH SOLN 0.5 MG/2.5 ML VIAL INHALATION ×4 (02:28→19:57)
[2022-06-18 05:48] LABS: Hematocrit 24.1 % (42.0-52.0); Immature Platelet Fraction Pct 11.1 % (0.9-11.2); Mean Corpuscular HGB Conc 33.2 g/dl (32-36); Mean Corpuscular Hemoglobin 34.3 pg (26-34); Mean Corpuscular Volume 103.4 fl (80-100); Mean Platelet Volume 12.2 fl (7.4-10.4); Platelet Count Result 113 k/mm3 (150-375); Red Blood Count 2.33 M/mm3 (4.6-6.20); Red Cell Distribution Width 12.9 % (11.5-14.5); White Blood Count 14.6 K/mm3 (4.5-10.0)
[2022-06-18 05:56] LABS: Anion Gap 10 mmol/L (8-16); Blood Urea Nitrogen 46 mg/dL (9-20); Calcium 8.9 mg/dL (8.4-10.2); Carbon Dioxide 23 mmol/L (22-30); Chloride 93 mmol/L (98-107); Estimated CRCL calculation 26 ml/min; Estimated Glomerular Filt Rate 21; Glucose 144 mg/dL (65-110); Magnesium 1.7 mg/dL (1.6-2.3); Potassium 3.1 mmol/L (3.4-5.0); Sodium 126 mmol/L (137-145)
--- NOTE | 2022-06-18 07:02 | PM.IMPN ---
Progress Note: A&P Assessment and Plan (1) Acute kidney injury superimposed on chronic kidney disease: Code(s): N17.9 - Acute kidney failure, unspecified; N18.9 - Chronic kidney disease, unspecified Status: Acute Assessment and Plan: -BUN and Cr 41 and 2.6 on arrival -BUN and Cr 46 and 2.9 this a.m. -fluids rate decreased to 70 -pt taken off losartan and put on hydralazine 10mg qid -hold sulfasalazine -repeat CMP in the morning (2) Urinary retention: Code(s): R33.9 - Retention of urine, unspecified Status: Acute Assessment and Plan: Mondragon catheter insertion with CBI Urology following (3) Gross hematuria: Code(s): R31.0 - Gross hematuria Status: Acute Assessment and Plan: -UA: RBC >75, WBC 4-6, color red -urology consulted -monitor H&H -pt hx of prostate cancer -patient underwent ultrasound of the bladder per urology -retroperitoneum ultrasound impression: Bilateral renal status without hydronephrosis, masslike filling defect along the inferior wall to the bladder with differential including clot, nodular prostatomegaly or primary bladder cancer. -undergoing doing clot evacuation today. (4) Hypokalemia: Code(s): E87.6 - Hypokalemia Status: Acute Assessment and Plan: initial K 2.8 in ER, Given 40 meq K on admission, repeat K 5.1 This morning K at 3.1 and patient given 40 meq of K (5) Hyponatremia: Code(s): E87.1 - Hypo-osmolality and hyponatremia Status: Acute Assessment and Plan: -Pt states decreased oral intake over the past couple days prior to ER arrival -Sodium at admission was 125 -likely due to dehydration -Pt started on NS -sodium this morning was 126 (6) Elevated troponin: Code(s): R77.8 - Other specified abnormalities of plasma proteins Status: Acute Assessment and Plan: -Mildly elevated at 0.041 -Pt without chest pain -No evidence of EKG changes from previous one on 05/15/2022 -Echo: No significant valve dysfunction, normal left ventricular size and systolic function with concentric LVH -Telemetry (7) Community acquired pneumonia: Code(s): J18.9 - Pneumonia, unspecified organism Status: Acute Assessment and Plan: -CXR impression: persistently small lung volumes, interstitial opacities in left lower lung zone, consistent with atelectasis vs chronic interstitial lung disease -Ceftriaxone 1 gram IV q24H and Azithromycin 500mg IV q24H -Sputum culture order -blood culture pending -spirometry -Monitor vital signs, I&Os, neuro status and patient is a fall risk -Follow WBC, serum electrolytes, temperature curves and cultures -Oxygen via NC; wean as tolerated. Keep SpO2 greater than 88% -Gentle IV fluid resuscitation -DuoNeb q6H and Albuterol q2H PRN -P.r.n. Tylenol, Zofran (8) Macrocytic anemia: Code(s): D53.9 - Nutritional anemia, unspecified Status: Chronic Assessment and Plan: -Patient hgb on admission was 9.2 -Repeat hgb this a.m. was 8.0 -Monitor H&H (9) Hypertension: Code(s): I10 - Essential (primary) hypertension Status: Chronic Assessment and Plan: Continue home medication BP stable (10) Psoriatic arthritis: Code(s): L40.50 - Arthropathic psoriasis, unspecified Status: Chronic Assessment and Plan: Monitor Time Spent With Patient Time with patient: Greater than 35 minutes Subjective Date/time seen: 06/18/22 07:02 Interval history: 77-year-old male with a history of prostate cancer, prostatectomy, CKD, and hypertension. Patient presented to hospital with complaints of weakness, shortness of breath and hematuria. Patient was recently admitted due to a left hip fracture on 06/04/2022. Patient states that his daughter has been sick within the past week and he believes that he has developed this sickness. Patient complains of cough, shortness of breath, chills and body aches. Patient's o
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
--- NOTE | 2022-06-18 07:59 | WPDHPUPDATE1 ---
History and Physical Update Update Date/Time: 06/18/22 07:59 History and Physical has been reviewed, including an updated exam of the patient. There are NO changes in the patient's condition. Risks, benefits, and alternatives have been discussed and questions answered. Patient agrees to proceed with procedure.
[2022-06-18] MEDS: WATER FOR IRRIGATION, STERILE 1,000 ML BOTTLE 1000 ML (09:37)
[2022-06-18] MEDS: POTASSIUM CHLORIDE 20 MEQ PACKET (FOR LIQUID) 40 MEQ PO (09:37)
[2022-06-18] MEDS: FOLIC ACID 1 MG TABLET PO (09:38)
[2022-06-18] MEDS: DULoxetine HCL 60 MG CAPSULE.DR PO (09:38)
[2022-06-18] MEDS: CHOLECALCIFEROL 1,000 UNITS TABLET 1000 UNITS PO (09:38)
[2022-06-18] MEDS: hydrALAZINE 10 MG TABLET PO ×3 (09:39→21:03)
--- NOTE | 2022-06-18 10:15 | WPDANESEPPF ---
Anes - Initial Pre Proc Eval Procedure: Operation Date: 06/18/22 12:00 Proposed Procedures p Cystoscopy, Evacuation Bladder Clots - Alvino Hidalgo MD Date/Time: 06/18/22 10:15 Surgeon: Jonatan Davey MD Pre Op Diagnosis: CAP, Hypokalemia Patient Data Age: 77 Gender: M Height: 1.75 m Weight: 119 kg Last Vital Signs Temp 36.7 C 06/18/22 09:05 Pulse 73 06/18/22 10:01 Resp 20 06/18/22 10:01 BP 123/59 L 06/18/22 09:05 Pulse Ox 98 06/18/22 09:56 O2 Del Method Nasal Cannula 06/18/22 09:56 O2 Flow Rate 1 06/18/22 09:56 Allergies Allergy/AdvReac Type Severity Reaction Status Date / Time No Known Allergies Allergy Verified 06/17/22 12:45 Home Medications Medication Instructions Recorded Confirmed Type amlodipine 10 mg tablet 10 mg PO BID 05/15/22 06/17/22 History buspirone 15 mg tablet 15 mg PO BID 05/15/22 06/17/22 History carvedilol 25 mg tablet 25 mg PO BID 05/15/22 06/17/22 History docusate sodium 100 mg capsule 100 mg PO BID 05/15/22 06/17/22 History folic acid 1 mg tablet 1 mg PO DAILY 05/15/22 06/17/22 History losartan 100 mg tablet 100 mg PO DAILY 05/15/22 06/17/22 History sulfasalazine 500 mg 0.5 g PO BID 05/15/22 06/17/22 History tablet,delayed release acetaminophen 325 mg tablet (Mapap 975 mg PO Q8H PRN Mild Pain (1-3) 06/04/22 06/17/22 Rx (acetaminophen)) Or Fever #30 tabs cholecalciferol (vitamin D3) 25 1,000 unit PO DAILY #30 tabs 06/04/22 06/17/22 Rx mcg (1,000 unit) tablet (Vitamin D3) duloxetine 60 mg capsule,delayed 60 mg PO QAM #30 caps 06/04/22 06/17/22 Rx release Laboratory Tests 06/17/22 06/17/22 06/17/22 13:04 13:04 13:04 WBC 17.5 K/mm3 H K/mm3 (4.5-10.0) RBC 2.66 M/mm3 L M/mm3 (4.6-6.20) Hgb 9.2 g/dL L g/dL (14.0-18.0) Hct 27.4 % L % (42.0-52.0) MCV 103.0 fl H fl (80-100) MCH 34.6 pg H pg (26-34) MCHC 33.6 g/dl g/dl (32-36) RDW 13.0 % % (11.5-14.5) Plt Count 142 k/mm3 L k/mm3 (150-375) MPV 11.5 fl H fl (7.4-10.4) Immature Gran % (Auto) Not Reportable Neut % (Auto) Not Reportable Lymph % (Auto) Not Reportable Callahan % (Auto) Not Reportable Eos % (Auto) Not Reportable Baso % (Auto) Not Reportable Lymph # (Auto) Not Reportable Callahan # (Auto) Not Reportable Eos # (Auto) Not Reportable Baso # (Auto) Not Reportable Abs Immat Gran (auto) Not Reportable Absolute Neuts (auto) Not Reportable Absolute Nucleated RBC Not Reportable Total Counted 100 Neutrophils % (Manual) 94 % H % (46-73) Band Neutrophils % 2 % % (0-6) Lymphocytes % (Manual) 2.0 % L % (18-44) Monocytes % (Manual) 2 % L % (3-9) Nucleated RBC % Not Reportable Abs Neuts (Manual) 16.80 K/mm3 H K/mm3 (1.3-6.7) Abs Lymphs (Manual) 0.35 K/mm3 L K/mm3 (1.1-4.5) Abs Monocytes (Manual) 0.35 K/mm3 K/mm3 (0.1-0.90) Platelet Estimate Slightly decreased (Adequate) % Immature Plt Fraction 9.9 % % (0.9-11.2) Schistocytes None seen (NORMAL) Sodium 125 mmol/L L mmol/L (137-145) Potassium 2.5 mmol/L L* mmol/L (3.4-5.0) Chloride 91 mmol/L L mmol/L (98-107) Carbon Dioxide 28 mmol/L mmol/L (22-30) Anion Gap 6 mmol/L L mmol/L (8-16) BUN 41 mg/dL H D mg/dL (9-20) Creatinine 2.60 mg/dL H mg/dL (0.7-1.3) Estim Creat Clear Calc 29 ml/min ml/min Estimated GFR 24 L (59 - ) Glucose 132 mg/dL H mg/dL (65-110) Calcium 8.9 mg/dL mg/dL (8.4-10.2) Magnesium Total Bilirubin 0.4 mg/dL mg/dL (0.2-1.3) AST 30 U/L U/L (17-59) ALT 2
[2022-06-18] MEDS: PERFLUTREN LIPID MICROSPHERES 1.5 ML VIAL DILUTED TO 10 ML TOTAL VOLUME IV PUSH (11:00)
[2022-06-18] MEDS: LACTATED RINGERS 1,000 ML 30 ML IV CONT (11:39)
[2022-06-18] MEDS: fentaNYL CITRATE INJ (*CRX) 100 MCG/2 ML VIAL 25 MCG IV PUSH ×2 (11:45→12:00)
[2022-06-18] MEDS: fentaNYL CITRATE INJ (*CRX) 100 MCG/2 ML VIAL 50 MCG IV PUSH (11:55)
--- NOTE | 2022-06-18 12:15 | IVDEFINITY ---
Prior to administration of IV Definity the patient was educated on the risks and benefits of the imaging enhancing agent including potential adverse side effects. The patient verbalized understanding. Allergies were verified. No exclusion criteria were identified and at least one of the following inclusion criteria were met: 1) physician request, 2) patient technically difficult to image (per the [place] [employer]ocardi[employer] guidelines of two or more segments not discernable within the apical view), or 3) questionable left ventricular function. ?
--- NOTE | 2022-06-18 16:31 | W.PM.PROC2 ---
Procedure Note - Detailed Date of Procedure 06/18/22 Pre-op Diagnosis Gross hematuria Post-op Diagnosis Same Procedure Performed Cystoscopy evacuation of clots Surgeon Alvino Hidalgo MD Anesthesia General Indications This is a gentleman who came into the hospital. He has a Mondragon catheter in place and significant clot in his bladder on ultrasound. CBI is not running well and hand irrigation is difficult. Will taken for a clot evacuation. He understands risks of bleeding, infection, inability to resolve his bleeding, damage to the urinary tract. He agrees to proceed Findings 600-700 cc of clot from the bladder. No active bleeding Description of Procedure He has correctly identified. Informed consent obtained. From the operating room. He was given general anesthesia. He was prepped draped in a sterile fashion. Time-out performed. I removed his Mondragon catheter. He was already on perioperative antibiotics. I performed cystoscopy. The prostate was absent. There was bruising at the bladder neck which looked like a Mondragon catheter balloon could of been blown up in the urethra or pulled on by the patient. I entered the bladder. There was large clot burden within the bladder. I evacuated the clots a Huy syringe. About 600 cc to 700 cc of clot was evacuated. I then examined the bladder. He had igok-le-cdodhtul trabeculations. Ureteral orifices were normal. There is no tumors or other abnormalities in the bladder. There was some bleeding near the bladder neck which I fulgurated gently. I did all fulguration away from the ureteral orifices. There was no active bleeding within the bladder. Mondragon catheter was replaced. CBI was started. It was running clear. He was awakened transferred to PACU in stable condition. Pathology None sent Complications No immediate complications Condition Stable Disposition PACU
[2022-06-18 18:17] LABS: Hematocrit 22.4 % (42.0-52.0); Hemoglobin 7.4 g/dL (14.0-18.0); Mean Corpuscular Hemoglobin 34.6 pg (26-34); Mean Corpuscular Volume 104.7 fl (80-100); Mean Platelet Volume 11.9 fl (7.4-10.4); Platelet Count Result 113 k/mm3 (150-375); Red Blood Count 2.14 M/mm3 (4.6-6.20); Red Cell Distribution Width 13.2 % (11.5-14.5); White Blood Count 12.3 K/mm3 (4.5-10.0)
[2022-06-18 18:27] LABS: Anion Gap 7 mmol/L (8-16); Blood Urea Nitrogen 55 mg/dL (9-20); Calcium 8.9 mg/dL (8.4-10.2); Carbon Dioxide 25 mmol/L (22-30); Chloride 95 mmol/L (98-107); Estimated CRCL calculation 23 ml/min; Estimated Glomerular Filt Rate 19; Glucose 133 mg/dL (65-110); Potassium 3.8 mmol/L (3.4-5.0); Sodium 127 mmol/L (137-145)
--- NOTE | 2022-06-18 20:13 | ECHO_ITS ---
Patient Info Name: Darrell Mccollum Age: 77 years : 1945 Gender: Male Ht: 69 in Wt: 263 lbs BSA: 2.46 m2 HR: 72 bpm BP: 144 / 79 mmHg Heart Rhythm: Sinus Rhythm Technical Quality: Fair Exam Date: 06/18/2022 10:28 AM Exam Location: [facility] Pulmonary Patient Status: Inpatient Admit Date: 06/18/2022 Staff Ordering Physician: Alia Logan PA-C Structural Analysis Engineer: Peace Balderas RDCS Attending Provider: Lito Davey MD Referring Physician: Desmond GARCIA; Exam Type: CA echo dop color flow w con Study Info Indications - elevated troponin, HTN Complete two-dimensional, color flow and Doppler transthoracic echocardiogram is performed with contrast to opacify the left ventricle and to improve the deliniation of the left ventricle endocardial borders. Contrast/Agitated Saline Contrast/Ag. Saline: Definity Amount: 3.00 ml Administered By: Peace Balderas RDCS Existing IV Access: Yes IV Access Condition: patent with no signs of infiltration Summary 1. Technically difficult exam with poor image quality. 2. Definity contrast used to improve LV visualization. 3. Normal left ventricular size and systolic function with concentric LVH. 4. No significant valve dysfunction identified. Left Ventricle Left ventricular chamber dimension is normal. Left ventricular systolic function is normal, estimated at 65-70%. There is mild concentric increased left ventricular wall thickness. The left ventricular diastolic function is grade I diastolic dysfunction. Right Ventricle Right ventricular chamber dimension is normal. Left Atria Left atrial chamber dimension is normal. Right Atria Right atrial chamber dimension is normal. Aortic Valve The aortic valve is not well visualized. Pulmonic Valve The pulmonic valve is not well visualized. Mitral Valve The mitral valve has normal leaflets. Tricuspid Valve The tricuspid valve leaflets are not well visualized. Pericardium/Pleural The pericardium appears normal. Aorta The aortic root size at the sinus of Valsalva is normal. Left Ventricular Outflow Tract Name Value Normal LVOT 2D LVOT Diameter 1.97 cm LVOT Doppler LVOT Peak Gradient 2 mmHg LVOT Mean Gradient 2 mmHg LVOT VTI 14.37 cm LVOT VTI/AV VTI Ratio 0.52 LVOT Stroke Volume 43.63 ml LVOT CO 2.82 l/min LVOT CI 1.15 L/min/m2 Pulmonic Valve Name Value Normal RVOT Doppler RVOT Peak Gradient 3 mmHg PV Doppler PV Peak Gradient 4 mmHg Mitral Valve -------
[2022-06-19] VITALS (27 sets, daily range): BP systolic 102–122; BP diastolic 44–58; PULSE 57–97; RESP 18–20; TEMP 35.7–36.6; O2SAT 90–98
[2022-06-19] MEDS: ALBUTEROL SULFATE NEB 2.5 MG/3 ML INH INHALATION ×4 (02:19→21:02)
[2022-06-19] MEDS: IPRATROPIUM BR 0.02% INH SOLN 0.5 MG/2.5 ML VIAL INHALATION ×4 (02:19→21:02)
[2022-06-19 06:09] LABS: Hematocrit 21.2 % (42.0-52.0); Mean Corpuscular HGB Conc 32.5 g/dl (32-36); Mean Corpuscular Hemoglobin 33.7 pg (26-34); Mean Corpuscular Volume 103.4 fl (80-100); Mean Platelet Volume 12.1 fl (7.4-10.4); Platelet Count Result 123 k/mm3 (150-375); Red Blood Count 2.05 M/mm3 (4.6-6.20); Red Cell Distribution Width 12.9 % (11.5-14.5); White Blood Count 11.4 K/mm3 (4.5-10.0)
[2022-06-19 06:18] LABS: Anion Gap 8 mmol/L (8-16); Blood Urea Nitrogen 60 mg/dL (9-20); Calcium 8.6 mg/dL (8.4-10.2); Carbon Dioxide 25 mmol/L (22-30); Chloride 93 mmol/L (98-107); Estimated CRCL calculation 22 ml/min; Estimated Glomerular Filt Rate 18; Glucose 126 mg/dL (65-110); Magnesium 1.9 mg/dL (1.6-2.3); Potassium 3.6 mmol/L (3.4-5.0); Sodium 126 mmol/L (137-145)
[2022-06-19 06:37] LABS: Hemoglobin 6.9 g/dL (14.0-18.0)
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
--- NOTE | 2022-06-19 09:31 | P.CONNP_ITS ---
Assessment and Plan Assessment and plan (1) GERRI (acute kidney injury): Code(s): N17.9 - Acute kidney failure, unspecified Status: Acute Assessment and Plan: * admitted with a creatinine of 2.6mg/dl * transient fell to 2.1mg/dl but now up to 3.4mg/dl by recent testing * initially though to be secondary to obstruction/urinary retetion complicated by bladder clots * however, s/p clot removal and gregory catheter in place * could relative hypotension (90s systolic) and/or ATN from pneumonia be playing a role * unable to check studies (due to CBI) * follow trend of repeat labs and UOP (2) Stage 3b chronic kidney disease: Code(s): N18.32 - Chronic kidney disease, stage 3b Status: Chronic Assessment and Plan: * creatinine running ~ 1.8 - 2.0mg/dl on last hospitalization (May 2022) * presumably due to HTN, vascular disease, and age (3) Hyponatremia: Code(s): E87.1 - Hypo-osmolality and hyponatremia Status: Acute Assessment and Plan: * normal sodium at baseline * running 126 - 127 for the last few days * possibly due to GERRI (?) * follow trend for now (4) Urinary retention: Code(s): R33.9 - Retention of urine, unspecified Status: Acute Assessment and Plan: * gregory catheter in place * Urology following (5) Gross hematuria: Code(s): R31.0 - Gross hematuria Status: Acute Assessment and Plan: * s/p cystoscopy and clot removal * Urology following as well (6) Anemia: Code(s): D64.9 - Anemia, unspecified Status: Acute Assessment and Plan: * as noted by AM labs * due to hematuria versus AKIon CKD versus both(?) * PRBC transfusion per protocol (7) Community acquired pneumonia: Code(s): J18.9 - Pneumonia, unspecified organism Status: Acute Assessment and Plan: * on antibiotics, supplemental oxygen, and nebulizer treatments * follow culture data * continue supportive therapy (8) Hypertension: Code(s): I10 - Essential (primary) hypertension Status: Chronic Assessment and Plan: * reasonable control at this time * some relative hypotension on admission * consider backing off on BP medications to keep systolic BP in the 130ish range Will continue to follow. History of Present Illness Reason for Consult Consult date: 06/19/22 Reason for consult: acute renal failure (on chronic kidney disease) Chief Complaint Chief complaint: CAP, Hypokalemia History of Present Illness Narrative: The patient is a 77-year-old male with a past medical history as outlined below who presented to [facility] Emergency room for further evaluation of weakness. The patient was recently hospitalized with a left hip fracture after a fall and was discharged to [facility] for further physical and occupational therapy. He was subsequently discharged at the end of May of 2022. However, in the last week he has had cold symptoms which included a lingering cough productive of clear sputum and mild shortness of breath that seems to be somewhat worse than his baseline. He also reports urinary urgency and hesitancy and passing small amounts of blood in his urine as well. Given these symptoms and the a for mentioned weakness, he presented to the emergency room for further assessment Workup and evaluation in the emergency room demonstrated O2 saturations in the 92-93 percentile range on room air and he was subsequently placed on 2 L of oxygen by nasal cannula by EMS prior to his
--- NOTE | 2022-06-19 09:31 | PM.CNNEP ---
Assessment and Plan Assessment and plan (1) GERRI (acute kidney injury): Code(s): N17.9 - Acute kidney failure, unspecified Status: Acute Assessment and Plan: admitted with a creatinine of 2.6mg/dl transient fell to 2.1mg/dl but now up to 3.4mg/dl by recent testing initially though to be secondary to obstruction/urinary retetion complicated by bladder clots however, s/p clot removal and gregory catheter in place could relative hypotension (90s systolic) and/or ATN from pneumonia be playing a role unable to check studies (due to CBI) follow trend of repeat labs and UOP (2) Stage 3b chronic kidney disease: Code(s): N18.32 - Chronic kidney disease, stage 3b Status: Chronic Assessment and Plan: creatinine running ~ 1.8 - 2.0mg/dl on last hospitalization (May 2022) presumably due to HTN, vascular disease, and age (3) Hyponatremia: Code(s): E87.1 - Hypo-osmolality and hyponatremia Status: Acute Assessment and Plan: normal sodium at baseline running 126 - 127 for the last few days possibly due to GERRI (?) follow trend for now (4) Urinary retention: Code(s): R33.9 - Retention of urine, unspecified Status: Acute Assessment and Plan: gregory catheter in place Urology following (5) Gross hematuria: Code(s): R31.0 - Gross hematuria Status: Acute Assessment and Plan: s/p cystoscopy and clot removal Urology following as well (6) Anemia: Code(s): D64.9 - Anemia, unspecified Status: Acute Assessment and Plan: as noted by AM labs due to hematuria versus AKIon CKD versus both(?) PRBC transfusion per protocol (7) Community acquired pneumonia: Code(s): J18.9 - Pneumonia, unspecified organism Status: Acute Assessment and Plan: on antibiotics, supplemental oxygen, and nebulizer treatments follow culture data continue supportive therapy (8) Hypertension: Code(s): I10 - Essential (primary) hypertension Status: Chronic Assessment and Plan: reasonable control at this time some relative hypotension on admission consider backing off on BP medications to keep systolic BP in the 130ish range Will continue to follow. History of Present Illness Reason for Consult Consult date: 06/19/22 Reason for consult: acute renal failure (on chronic kidney disease) Chief Complaint Chief complaint: CAP, Hypokalemia History of Present Illness Narrative: The patient is a 77-year-old male with a past medical history as outlined below who presented to [facility] Emergency room for further evaluation of weakness. The patient was recently hospitalized with a left hip fracture after a fall and was discharged to [facility] for further physical and occupational therapy. He was subsequently discharged at the end of May of 2022. However, in the last week he has had cold symptoms which included a lingering cough productive of clear sputum and mild shortness of breath that seems to be somewhat worse than his baseline. He also reports urinary urgency and hesitancy and passing small amounts of blood in his urine as well. Given these symptoms and the a for mentioned weakness, he presented to the emergency room for further assessment Workup and evaluation in the emergency room demonstrated O2 saturations in the 92-93 percentile range on room air and he was subsequently placed on 2 L of oxygen by nasal cannula by EMS prior to his arrival. Routine blood test demonstrated an elevated white blood cell count of 17.5, electrolyte abnormalities with regard to a sodium of 125, potassium of 2.5, and worsening renal dysfunction in comparison to when he was last hospitalized with a BUN of 41 and a creatinine of 2.6. He was found to be influenza and COVID negative and his chest x-ray showed persistently small lung volumes and interstitial opacities in the left lower lung
[2022-06-19] MEDS: SODIUM CHLORIDE 0.9% IV 250 ML 30 ML (10:02)
[2022-06-19] MEDS: PANTOPRAZOLE SODIUM IV 40 MG VIAL IV PUSH ×2 (10:16→21:25)
[2022-06-19] MEDS: guaiFENesin 12 HR 600 MG TABCR PO ×2 (10:22→21:25)
[2022-06-19] MEDS: busPIRone HCL 5 MG TABLET 15 MG PO ×2 (10:22→21:24)
[2022-06-19] MEDS: DOCUSATE SODIUM 100 MG CAPSULE PO ×2 (10:22→21:25)
[2022-06-19] MEDS: CHOLECALCIFEROL 1,000 UNITS TABLET 1000 UNITS PO (10:22)
[2022-06-19] MEDS: DULoxetine HCL 60 MG CAPSULE.DR PO (10:22)
[2022-06-19] MEDS: FOLIC ACID 1 MG TABLET PO (10:22)
[2022-06-19] MEDS: amLODIPine BESYLATE 5 MG TABLET 10 MG PO ×2 (10:28→21:24)
[2022-06-19] MEDS: carvediloL 25 MG TABLET PO ×2 (10:28→21:25)
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
[2022-06-19 14:22] LABS: Hematocrit 24.7 % (42.0-52.0); Hemoglobin 8.1 g/dL (14.0-18.0)
[2022-06-19 14:31] LABS: Anion Gap 8 mmol/L (8-16); Blood Urea Nitrogen 64 mg/dL (9-20); Calcium 8.6 mg/dL (8.4-10.2); Carbon Dioxide 24 mmol/L (22-30); Chloride 98 mmol/L (98-107); Creatine Kinase 21 U/L (55-170); Estimated CRCL calculation 25 ml/min; Estimated Glomerular Filt Rate 19; Glucose 124 mg/dL (65-110); Potassium 3.4 mmol/L (3.4-5.0); Sodium 130 mmol/L (137-145)
--- NOTE | 2022-06-19 15:55 | WPDUROPN2 ---
Progress Note: A&P Assessment and Plan (1) GERRI (acute kidney injury): Code(s): N17.9 - Acute kidney failure, unspecified Status: Acute Assessment and Plan: Creatinine remains stable for him at 3.40. Patient's CT shows left renal mass, but no hydronephrosis and bladder clot which was removed yesterday. No etiology for continued kidney injury. (2) Urinary retention: Code(s): R33.9 - Retention of urine, unspecified Status: Acute Assessment and Plan: Ok to do a voiding trial once hematuria resolves on it's own and CBI is able to be weaned off. (3) Gross hematuria: Code(s): R31.0 - Gross hematuria Status: Acute Assessment and Plan: Weaned CBI down since urine was relatively clear. Ok to wean to off when clear. Subjective Subjective Date/Time Seen: 06/19/22 15:55 POD #1 Cysto, Clot Removal Patient doing well on CBI Post Op day: 1 Review of Systems Cardiovascular: Cardiovascular: Denies chest pain Respiratory: Respiratory: Reports no additional respiratory complaints Gastrointestinal: Gastrointestinal: Denies abdominal pain, Denies nausea and Denies vomiting Genitourinary: Genitourinary: Denies hematuria, Denies dysuria, Denies flank pain, Denies urinary frequency, Denies urinary hesitancy and Denies urinary urgency Exam Resp: Effort & Inspection: normal respiratory effort Cardio: Rate: regular rate GI: GI Palp: Yes Soft to palpation and Yes Tenderness to palpation present (GI) : General: Yes no CVA tenderness Urinary Catheter: Urinary Catheter: patent and draining, urine clear and urine pink Extrem: Right lower extremity: no edema Left lower extremity: no edema Objective Data Vital Signs Vital Signs: Vital Signs - 24 hr 06/18/22 16:02 06/18/22 16:00 06/18/22 20:02 Temperature 97.8 F Pulse Rate 65 59 L 69 Respiratory Rate 18 20 Blood Pressure 112/64 Pulse Oximetry 99 Oxygen Delivery Oxygen Flow Rate 06/18/22 20:04 06/18/22 20:14 06/18/22 21:03 Temperature Pulse Rate 72 72 Respiratory Rate 20 Blood Pressure Pulse Oximetry 97 Oxygen Delivery Nasal Cannula Oxygen Flow Rate 2 06/18/22 22:49 06/19/22 02:21 06/19/22 03:04 Temperature 97.4 F L 97.0 F L Pulse Rate 63 57 L 58 L Respiratory Rate 20 18 18 Blood Pressure 104/56 L 115/44 L Pulse Oximetry 98 97 Oxygen Delivery Oxygen Flow Rate 06/18/22 20:00 06/18/22 20:00 06/19/22 00:00 Temperature Pulse Rate 64 62 Respiratory Rate Blood Pressure Pulse Oximetry 97 Oxygen Delivery Nasal Cannula Oxygen Flow Rate 1 06/19/22 02:33 06/19/22 06:00 06/19/22 09:16 Temperature 97.0 F L Pulse Rate 60 68 Respiratory Rate 18 18 Blood Pressure 119/55 L Pulse Oximetry 96 93 Oxygen Delivery Nasal Cannula Oxygen Flow Rate 1 06/19/22 09:16 06/19/22 09:27 06/19/22 10:12 Temperature 96.6 F L Pulse Rate 73 75 68 Respiratory Rate 20 20 20 Blood Pressure 108/53 L Pulse Oximetry 95 Oxygen Delivery Oxygen Flow Rate 06/19/22 10:28 06/19/22 10:28 06/19/22 10:00 Temperature 96.3 F L 96.6 F L Pulse Rate 68 73 68 Respiratory Rate 20 20 Blood Pressure 122/52 L 108/53 L Pulse Oximetry 97 95 Oxygen Delivery Oxygen Flow Rate 06/19/22 10:20 06/19/22 10:20 06/19/22 11:28 Temperature 96.2 F L Pulse Rate 71 69 Respiratory Rate 20 Blood Pressure 110/48 L Pulse Oximetry 95 97 Oxygen Delivery Nasal Cannula Oxygen Flow Rate 1 06/19/22 12:28 06/19/22 13:55 06/19/22 14:02 Temperature 96.2 F L 97.9 F Pulse Rate 64 62 84 Respiratory Rate 20 20 20 Blood Pressure 102/47 L 117/58 L Pulse Oximetry 97 97 Oxygen Delivery Oxygen Flow Rate 06/19/22 14:14 06/19/22 12:00 06/19/22 14:00 Temperature 96.2 F L Pulse Rate 86 66 63 Respiratory Rate 20 20 Blood Pressure 110/50 L Pulse Oximetry 98 Oxygen Delivery Oxygen Flow Rate 06/19/22 15:05 Temperature
[2022-06-19 19:57] LABS: Sodium 128 mmol/L (137-145)
[2022-06-19 20:01] LABS: Hematocrit 24.5 % (42.0-52.0)
[2022-06-19] MEDS: ACETAMINOPHEN 325 MG TABLET 975 MG PO (21:23)
[2022-06-19] MEDS: hydrALAZINE 10 MG TABLET PO (21:24)
[2022-06-20] VITALS (22 sets, daily range): BP systolic 106–145; BP diastolic 54–73; PULSE 65–87; RESP 18–20; TEMP 36.1–37.2; O2SAT 95–98
[2022-06-20 02:25] LABS: Sodium 129 mmol/L (137-145)
[2022-06-20] MEDS: IPRATROPIUM BR 0.02% INH SOLN 0.5 MG/2.5 ML VIAL INHALATION ×4 (02:52→20:25)
[2022-06-20] MEDS: ALBUTEROL SULFATE NEB 2.5 MG/3 ML INH INHALATION ×4 (02:52→20:25)
[2022-06-20 06:12] LABS: Basophils Percent Auto 0.2 % (0.2-1.2); Eosinophils Absolute Auto 0.1 K/mm3 (0-0.3); Eosinophils Percent Auto 0.8 % (0-4.4); Hematocrit 25.3 % (42.0-52.0); Hemoglobin 8.3 g/dL (14.0-18.0); Immature Granulocyte Absolute 0.24 K/mm3 (0.00-0.031); Immature Granulocyte Percent A 2.2 % (0-0.5); Lymphocytes Absolute Auto 0.77 K/mm3 (0.9-3.2); Lymphocytes Percent Auto 7.2 % (18.3-44.2); Mean Corpuscular HGB Conc 32.8 g/dl (32-36); Mean Corpuscular Hemoglobin 33.2 pg (26-34); Mean Corpuscular Volume 101.2 fl (80-100); Mean Platelet Volume 11.7 fl (7.4-10.4); Monocytes Absolute Auto 1.2 K/mm3 (0.1-0.6); Neutrophils Absolute Auto 8.4 K/mm3 (1.3-6.7); Neutrophils Percent Auto 78.6 % (45.5-73.1); Platelet Count Result 149 k/mm3 (150-375); Red Cell Distribution Width 16.5 % (11.5-14.5); White Blood Count 10.7 K/mm3 (4.5-10.0)
[2022-06-20 06:20] LABS: Alanine Aminotransferase 34 U/L (6-50); Albumin Level 3.1 g/dL (3.5-5.1); Alkaline Phosphatase 78 U/L (38-126); Anion Gap 8 mmol/L (8-16); Aspartate Amino Transferase 39 U/L (17-59); Bilirubin,Total 0.4 mg/dL (0.2-1.3); Blood Urea Nitrogen 65 mg/dL (9-20); Calcium 8.8 mg/dL (8.4-10.2); Carbon Dioxide 25 mmol/L (22-30); Chloride 100 mmol/L (98-107); Estimated CRCL calculation 27 ml/min; Estimated Glomerular Filt Rate 21; Glucose 95 mg/dL (65-110); Potassium 3.3 mmol/L (3.4-5.0); Sodium 133 mmol/L (137-145)
--- NOTE | 2022-06-20 07:47 | PM.IMPN ---
Progress Note: A&P Assessment and Plan (1) Acute kidney injury superimposed on chronic kidney disease: Code(s): N17.9 - Acute kidney failure, unspecified; N18.9 - Chronic kidney disease, unspecified Status: Acute Assessment and Plan: -BUN and Cr 41 and 2.6 on arrival Last discharge creatinine was 2. Mild GERRI on CKD stage 3 to 4 Off losartan Placed on hydralazine 10 mg q.i.d. Creatinine fairly stable peaked to 3.4 -CT chest abdomen and pelvis: Revealed mild atelectasis bilaterally. Small with of hematoma in the bladder. 14 mm left kidney mass; Hemorrhagic cyst versus neoplasm. MRI with and without contrast recommended. -MRI unable to be ordered due to patient having history of shrapnel in face and chest. -nephrology consulted (2) Gross hematuria: Code(s): R31.0 - Gross hematuria Status: Acute Assessment and Plan: -Patient does has history of prostate cancer with a prostatectomy. Patient presented to the ER concerned of gross hematuria. -UA: RBC >75, WBC 4-6, color red -urology consulted -monitor H&H -pt hx of prostate cancer -patient underwent ultrasound of the bladder per urology -retroperitoneum ultrasound impression: Bilateral renal status without hydronephrosis, masslike filling defect along the inferior wall to the bladder with differential including clot, nodular prostatomegaly or primary bladder cancer. -cystoscopy evacuation of clots preformed 06/18/22 -600-700cc of clot evacuated -CBI started and Mondragon replaced in surgery 06/19 -CT abdomen pelvis: 14 mm hemorrhagic cyst versus malignancy -nephrology consulted and following patient. associated acute blood loss anemia requiring transfusion this admission on 06/19/2022 (3) Urinary retention: Code(s): R33.9 - Retention of urine, unspecified Status: Acute Assessment and Plan: Mondragon catheter insertion with CBI Urology following (4) Hypokalemia: Code(s): E87.6 - Hypokalemia Status: Acute Assessment and Plan: replace monitor (5) Hyponatremia: Code(s): E87.1 - Hypo-osmolality and hyponatremia Status: Acute Assessment and Plan: -Pt states decreased oral intake over the past couple days prior to ER arrival -Sodium at admission was 125 -likely due to dehydration -fluids discontinued -urine sodium and creatinine and urine osmolality pending. (6) Elevated troponin: Code(s): R77.8 - Other specified abnormalities of plasma proteins Status: Acute Assessment and Plan: -Mildly elevated at 0.041 -Pt without chest pain -No evidence of EKG changes from previous one on 05/15/2022 -Echo: No significant valve dysfunction, normal left ventricular size and systolic function with concentric LVH -Telemetry (7) Community acquired pneumonia: Code(s): J18.9 - Pneumonia, unspecified organism Status: Acute Assessment and Plan: -CXR impression: persistently small lung volumes, interstitial opacities in left lower lung zone, consistent with atelectasis vs chronic interstitial lung disease -Ceftriaxone 1 gram IV q24H, Azithromycin 500mg IV q24H and Vancomycin due to coverage for hospital acquired pneumonia -Sputum culture order -blood culture no growth to date -spirometry -Monitor vital signs, I&Os, neuro status and patient is a fall risk -Follow WBC, serum electrolytes, temperature curves and cultures -Oxygen via NC; wean as tolerated. Keep SpO2 greater than 90% -discontinue IV fluids -DuoNeb q6H and Albuterol q2H PRN -P.r.n. Tylenol, Zofran 06/19 -CT chest abdomen and pelvis ordered -IV antibiotics discontinued due CT chest revealing mild atelectasis. Patient is stable with no signs of infection. -Patient's white count trending down. (8) Macrocytic anemia: Code(s): D53.9 - Nutritional anemia, unspecified Status: Chronic Assessment and Plan: -Acute blood loss anemia -Patient hgb on admission
[2022-06-20] MEDS: POTASSIUM CHLORIDE 20 MEQ TABLET PO (09:49)
[2022-06-20] MEDS: CHOLECALCIFEROL 1,000 UNITS TABLET 1000 UNITS PO (09:50)
[2022-06-20] MEDS: guaiFENesin 12 HR 600 MG TABCR PO ×2 (09:51→20:54)
[2022-06-20] MEDS: hydrALAZINE 10 MG TABLET PO ×4 (09:51→20:54)
[2022-06-20] MEDS: carvediloL 25 MG TABLET PO ×2 (09:51→20:54)
[2022-06-20] MEDS: DOCUSATE SODIUM 100 MG CAPSULE PO ×2 (09:51→20:54)
[2022-06-20] MEDS: PANTOPRAZOLE SODIUM IV 40 MG VIAL IV PUSH ×2 (09:51→20:58)
[2022-06-20] MEDS: amLODIPine BESYLATE 5 MG TABLET 10 MG PO ×2 (09:52→20:54)
[2022-06-20] MEDS: DULoxetine HCL 60 MG CAPSULE.DR PO (09:52)
[2022-06-20] MEDS: busPIRone HCL 5 MG TABLET 15 MG PO ×2 (09:52→20:53)
[2022-06-20] MEDS: FOLIC ACID 1 MG TABLET PO (09:52)
[2022-06-20] MEDS: ACETAMINOPHEN 325 MG TABLET 975 MG PO (11:25)
[2022-06-20] MEDS: NEOMYCIN/POLYMYXIN/BACITRACIN OINTMENT 15 GM TUBE 1 APPLIC TOPICAL (12:40)
--- NOTE | 2022-06-20 13:18 | PCOTNOTE ---
Attempted to see pt. for occupational therapy evaluation. Pt. declined to participate at this time due to fatigue and recent return to bed. Pt. agreeable to participate tomorrow.
--- NOTE | 2022-06-20 14:50 | PM.PNNEP ---
Progress Note: A&P Assessment and Plan (1) GERRI (acute kidney injury): Code(s): N17.9 - Acute kidney failure, unspecified Status: Acute Assessment and Plan: improvement noted admitted with a creatinine of 2.6mg/dl transient fall to 2.1mg/dl then 3.4mg/dl (on 06/19/22) initially though to be secondary to obstruction/urinary retention complicated by bladder clots however, s/p clot removal and gregory catheter in place could relative hypotension (90s systolic) and/or ATN from pneumonia be playing a role unable to check urine studies (due to CBI) follow trend of repeat labs and UOP (2) Stage 3b chronic kidney disease: Code(s): N18.32 - Chronic kidney disease, stage 3b Status: Chronic Assessment and Plan: creatinine running ~ 1.8 - 2.0mg/dl on last hospitalization (May 2022) presumably due to HTN, vascular disease, and age (3) Hyponatremia: Code(s): E87.1 - Hypo-osmolality and hyponatremia Status: Acute Assessment and Plan: improvement noted normal sodium at baseline possibly due to GERRI (?) follow trend for now (4) Urinary retention: Code(s): R33.9 - Retention of urine, unspecified Status: Acute Assessment and Plan: gregory catheter in place Urology following (5) Gross hematuria: Code(s): R31.0 - Gross hematuria Status: Acute Assessment and Plan: s/p cystoscopy and clot removal Urology following as well (6) Anemia: Code(s): D64.9 - Anemia, unspecified Status: Acute Assessment and Plan: as noted by AM labs due to hematuria versus AKIon CKD versus both(?) PRBC transfusion per protocol (7) Community acquired pneumonia: Code(s): J18.9 - Pneumonia, unspecified organism Status: Acute Assessment and Plan: on antibiotics, supplemental oxygen, and nebulizer treatments follow culture data continue supportive therapy (8) Hypertension: Code(s): I10 - Essential (primary) hypertension Status: Chronic Assessment and Plan: reasonable control at this time some relative hypotension on admission follow trend of hemodynamics Will continue to follow. Subjective Date/time seen: 06/20/22 14:50 Some issues with bladder spasms overnight which seemed to resolve with gregory catheter flushing; breathing seems stable although still admits to some wheezing; some improvement in renal function and hyponatremia noted (due to PRBC transfusion?); H/H better as well. Exam Narrative: General: WD/WN male in NAD Heart: normal S1 and S2; no rub Lungs: coarse with few wheezes noted Abdomen: soft, nontender, nondistended, positive bowel sounds Extremities: no cyanosis or clubbing; no edema Skin: warm and dry Objective Data Vital Signs Vital Signs: Vital Signs Temp Pulse Resp BP Pulse Ox O2 Del Method 06/20/22 09:30 69 20 06/20/22 14:46 76 18 06/20/22 14:31 71 18 06/20/22 12:00 67 06/20/22 09:47 99.0 F 87 18 145/73 H 95 06/20/22 09:51 87 06/20/22 08:00 67 06/20/22 09:13 65 18 06/20/22 09:13 95 Room Air 06/20/22 05:32 97.8 F 66 18 130/57 L 95 06/20/22 03:03 75 18 06/20/22 02:53 71 18 06/20/22 02:06 97.0 F L 71 18 130/54 L 96 Intake/Output Intake/Output: Intake & Output 06/18/22 06/19/22 06/20/22 06/21/22 23:59 23:59 23:59 23:59 Intake Total 4140 2410 3270 Output Total 3675 1950 850 Balance 379 162 0775 Meds/Results Medications: Active Medications Generic Name Dose Route Start Last Admin Trade Name Freq PRN Reason Stop Dose Admin Acetaminophen 975 mg 06/17/22 23:24 06/20/22 11:25 Acetaminophen 325 Mg Tablet PO 975 mg Q8H PRN Administration Mild Pain (1-3) Or Fever Albuterol 2.5 mg 06/18/22 02:00 06/20/22 20:25 Albuterol Sulfate Neb 2.5 Mg/3 Ml Inh INHALATION 2.5 mg Q6HRT JAYRO Adminis
--- NOTE | 2022-06-20 14:50 | P.PNNP_ITS ---
Progress Note: A&P Assessment and Plan (1) GERRI (acute kidney injury): Code(s): N17.9 - Acute kidney failure, unspecified Status: Acute Assessment and Plan: * improvement noted * admitted with a creatinine of 2.6mg/dl * transient fall to 2.1mg/dl then 3.4mg/dl (on 06/19/22) * initially though to be secondary to obstruction/urinary retention complicated by bladder clots * however, s/p clot removal and gregory catheter in place * could relative hypotension (90s systolic) and/or ATN from pneumonia be playing a role * unable to check urine studies (due to CBI) * follow trend of repeat labs and UOP (2) Stage 3b chronic kidney disease: Code(s): N18.32 - Chronic kidney disease, stage 3b Status: Chronic Assessment and Plan: * creatinine running ~ 1.8 - 2.0mg/dl on last hospitalization (May 2022) * presumably due to HTN, vascular disease, and age (3) Hyponatremia: Code(s): E87.1 - Hypo-osmolality and hyponatremia Status: Acute Assessment and Plan: * improvement noted * normal sodium at baseline * possibly due to GERRI (?) * follow trend for now (4) Urinary retention: Code(s): R33.9 - Retention of urine, unspecified Status: Acute Assessment and Plan: * gregory catheter in place * Urology following (5) Gross hematuria: Code(s): R31.0 - Gross hematuria Status: Acute Assessment and Plan: * s/p cystoscopy and clot removal * Urology following as well (6) Anemia: Code(s): D64.9 - Anemia, unspecified Status: Acute Assessment and Plan: * as noted by AM labs * due to hematuria versus AKIon CKD versus both(?) * PRBC transfusion per protocol (7) Community acquired pneumonia: Code(s): J18.9 - Pneumonia, unspecified organism Status: Acute Assessment and Plan: * on antibiotics, supplemental oxygen, and nebulizer treatments * follow culture data * continue supportive therapy (8) Hypertension: Code(s): I10 - Essential (primary) hypertension Status: Chronic Assessment and Plan: * reasonable control at this time * some relative hypotension on admission * follow trend of hemodynamics Will continue to follow. Subjective Date/time seen: 06/20/22 14:50 Some issues with bladder spasms overnight which seemed to resolve with gregory catheter flushing; breathing seems stable although still admits to some wheezing; some improvement in renal function and hyponatremia noted (due to PRBC transfusion?); H/H better as well. Exam Narrative: General: WD/WN male in NAD Heart: normal S1 and S2; no rub Lungs: coarse with few wheezes noted Abdomen: soft, nontender, nondistended, positive bowel sounds Extremities: no cyanosis or clubbing; no edema Skin: warm and dry Objective Data Vital Signs Vital Signs: Vital Signs Temp Pulse Resp BP Pulse Ox O2 Del Method 06/20/22 09:30 69 20 06/20/22 14:46 76 18 06/20/22 14:31 71 18 06/20/22 12:00 67 06/20/22 09:47 99.0 F 87 18 145/73 H 95 06/20/22 09:51 87 06/20/22 08:00 67 06/20/22 09:13 65 18 06/20/22 09:13 95 Room Air 06/20/22 05:32 97.8 F 66 18 130/57 L 95 06/20/22 03:03 75 18 06/20/22 02:53
--- NOTE | 2022-06-20 14:53 | PHAR ---
Home medication seen in pharmacy and returned to RN at window. Humira Pen 40mg/0.8ml sq [id number] (last due 06/19/22)
--- NOTE | 2022-06-20 15:29 | WPDUROPN2 ---
Progress Note: A&P Assessment and Plan (1) Urinary retention: Code(s): R33.9 - Retention of urine, unspecified Status: Acute Assessment and Plan: Keep gregory in until urine remains clear for 24 hours off CBI, then remove gregory and do a voiding trial. (2) GERRI (acute kidney injury): Code(s): N17.9 - Acute kidney failure, unspecified Status: Acute (3) Gross hematuria: Code(s): R31.0 - Gross hematuria Status: Acute Assessment and Plan: Resolved on CBI. I turned CBI to off since urine is clear, if blood returns, ok to restart CBI. Subjective Subjective Date/Time Seen: 06/20/22 15:29 POD #2 Cysto with clot evacuation CBI running, urine is crystal clear. Patient doing well. Review of Systems Constitutional: Constitutional: Reports daytime sleepiness Cardiovascular: Cardiovascular: Denies chest pain Respiratory: Respiratory: Reports no additional respiratory complaints Gastrointestinal: Gastrointestinal: Denies abdominal pain, Denies nausea and Denies vomiting Genitourinary: Genitourinary: Denies hematuria and Denies flank pain Exam Const: General: cooperative Resp: Effort & Inspection: normal respiratory effort Cardio: Rate: regular rate GI: GI Palp: Yes Soft to palpation and No Tenderness to palpation present (GI) : General: Yes no CVA tenderness Urinary Catheter: Urinary Catheter: patent and draining and urine clear Extrem: Right lower extremity: no edema Left lower extremity: no edema Objective Data Vital Signs Vital Signs: Vital Signs - 24 hr 06/19/22 16:00 06/19/22 16:23 06/19/22 18:00 Temperature 97.3 F L Pulse Rate 67 97 Respiratory Rate 18 Blood Pressure 116/51 L Pulse Oximetry 91 96 Oxygen Delivery Room Air Oxygen Flow Rate 06/19/22 21:03 06/19/22 21:04 06/19/22 21:25 Temperature Pulse Rate 66 66 Respiratory Rate 18 Blood Pressure Pulse Oximetry 90 Oxygen Delivery Nasal Cannula Oxygen Flow Rate 1 06/19/22 20:00 06/19/22 22:14 06/19/22 20:00 Temperature 97.0 F L Pulse Rate 66 68 Respiratory Rate 18 Blood Pressure 120/53 L Pulse Oximetry 95 95 Oxygen Delivery Nasal Cannula Oxygen Flow Rate 1 06/20/22 02:06 06/20/22 02:53 06/19/22 21:16 Temperature 97.0 F L Pulse Rate 71 71 69 Respiratory Rate 18 18 18 Blood Pressure 130/54 L Pulse Oximetry 96 Oxygen Delivery Oxygen Flow Rate 06/20/22 03:03 06/20/22 05:32 06/20/22 09:13 Temperature 97.8 F Pulse Rate 75 66 Respiratory Rate 18 18 Blood Pressure 130/57 L Pulse Oximetry 95 95 Oxygen Delivery Room Air Oxygen Flow Rate 06/20/22 09:13 06/20/22 08:00 06/20/22 09:51 Temperature Pulse Rate 65 67 87 Respiratory Rate 18 Blood Pressure Pulse Oximetry Oxygen Delivery Oxygen Flow Rate 06/20/22 09:47 06/20/22 12:00 06/20/22 14:46 Temperature 99.0 F Pulse Rate 87 67 76 Respiratory Rate 18 18 Blood Pressure 145/73 H Pulse Oximetry 95 Oxygen Delivery Oxygen Flow Rate 06/20/22 14:50 Temperature Pulse Rate 76 Respiratory Rate Blood Pressure Pulse Oximetry Oxygen Delivery Oxygen Flow Rate Intake/Output Intake/Output: Intake & Output 06/17/22 06/18/22 06/19/22 06/20/22 23:59 23:59 23:59 23:59 Intake Total 300 4140 2410 1430 Output Total 3675 1950 Balance 300 269 805 6628 Meds/Results Medications: Active Medications Generic Name Dose Route Start Last Admin Trade Name Freq PRN Reason Stop Dose Admin Acetaminophen 975 mg 06/17/22 23:24 06/20/22 11:25 Acetaminophen 325 Mg Tablet PO 975 mg Q8H PRN Administration Mild Pain (1-3) Or Fever Albuterol 2.5 mg 06/18/22 02:00 06/20/22 14:30 Albuterol Sulfate Neb 2.5 Mg/3 Ml Inh INHALATION 2.5 mg Q6HRT JAYRO Administration Amlodipine Besylate 10 mg 06/17/22 23:35 06/20/22 09:52 Amlodipine Besylate 5 Mg Tablet PO 10 mg Q12HR JAYRO Administrati
[2022-06-21] VITALS (21 sets, daily range): BP systolic 92–143; BP diastolic 41–71; PULSE 72–89; RESP 18–20; TEMP 36.4–37.1; O2SAT 94–98
[2022-06-21] MEDS: ALBUTEROL SULFATE NEB 2.5 MG/3 ML INH INHALATION ×3 (02:59→20:38)
[2022-06-21] MEDS: IPRATROPIUM BR 0.02% INH SOLN 0.5 MG/2.5 ML VIAL INHALATION ×3 (02:59→20:38)
[2022-06-21 05:49] LABS: Basophils Percent Auto 0.3 % (0.2-1.2); Eosinophils Absolute Auto 0.1 K/mm3 (0-0.3); Hematocrit 23.9 % (42.0-52.0); Immature Granulocyte Percent A 3.9 % (0-0.5); Lymphocytes Absolute Auto 1.05 K/mm3 (0.9-3.2); Lymphocytes Percent Auto 8.2 % (18.3-44.2); Mean Corpuscular HGB Conc 33.5 g/dl (32-36); Mean Corpuscular Hemoglobin 32.9 pg (26-34); Mean Corpuscular Volume 98.4 fl (80-100); Mean Platelet Volume 11.8 fl (7.4-10.4); Monocytes Absolute Auto 1.1 K/mm3 (0.1-0.6); Monocytes Percent Auto 8.9 % (2.6-8.5); Neutrophils Percent Auto 77.7 % (45.5-73.1); Platelet Count Result 194 k/mm3 (150-375); Red Blood Count 2.43 M/mm3 (4.6-6.20); Red Cell Distribution Width 16.1 % (11.5-14.5); White Blood Count 12.9 K/mm3 (4.5-10.0)
[2022-06-21 06:06] LABS: Alanine Aminotransferase 29 U/L (6-50); Albumin Level 3.2 g/dL (3.5-5.1); Alkaline Phosphatase 87 U/L (38-126); Anion Gap 6 mmol/L (8-16); Aspartate Amino Transferase 27 U/L (17-59); Bilirubin,Total 0.5 mg/dL (0.2-1.3); Blood Urea Nitrogen 58 mg/dL (9-20); Calcium 8.9 mg/dL (8.4-10.2); Carbon Dioxide 27 mmol/L (22-30); Chloride 102 mmol/L (98-107); Estimated CRCL calculation 32 ml/min; Estimated Glomerular Filt Rate 27; Glucose 97 mg/dL (65-110); Magnesium 1.9 mg/dL (1.6-2.3); Potassium 3.8 mmol/L (3.4-5.0); Sodium 135 mmol/L (137-145)
[2022-06-21] MEDS: busPIRone HCL 5 MG TABLET 15 MG PO ×2 (09:33→20:47)
[2022-06-21] MEDS: amLODIPine BESYLATE 5 MG TABLET 10 MG PO ×2 (09:33→20:47)
[2022-06-21] MEDS: DOCUSATE SODIUM 100 MG CAPSULE PO ×2 (09:33→20:48)
[2022-06-21] MEDS: carvediloL 25 MG TABLET PO ×2 (09:33→20:47)
[2022-06-21] MEDS: PANTOPRAZOLE SODIUM IV 40 MG VIAL IV PUSH ×2 (09:33→20:48)
[2022-06-21] MEDS: NEOMYCIN/POLYMYXIN/BACITRACIN OINTMENT 15 GM TUBE 1 APPLIC TOPICAL (09:34)
[2022-06-21] MEDS: DULoxetine HCL 60 MG CAPSULE.DR PO (09:34)
[2022-06-21] MEDS: CHOLECALCIFEROL 1,000 UNITS TABLET 1000 UNITS PO (09:34)
[2022-06-21] MEDS: hydrALAZINE 10 MG TABLET PO (09:34)
[2022-06-21] MEDS: guaiFENesin 12 HR 600 MG TABCR PO ×2 (09:34→20:48)
[2022-06-21] MEDS: FOLIC ACID 1 MG TABLET PO (09:34)
--- NOTE | 2022-06-21 14:18 | PM.IMPN ---
Progress Note: A&P Assessment and Plan (1) Acute kidney injury superimposed on chronic kidney disease: Code(s): N17.9 - Acute kidney failure, unspecified; N18.9 - Chronic kidney disease, unspecified Status: Acute Assessment and Plan: -BUN and Cr 41 and 2.6 on arrival Last discharge creatinine was 2. Mild GERRI on CKD stage 3 to 4 Off losartan Placed on hydralazine 10 mg q.i.d. Creatinine fairly stable peaked to 3.4 -CT chest abdomen and pelvis: Revealed mild atelectasis bilaterally. Small with of hematoma in the bladder. 14 mm left kidney mass; Hemorrhagic cyst versus neoplasm. MRI with and without contrast recommended. -MRI unable to be ordered due to patient having history of shrapnel in face and chest. Creatinine continues to improve now. Creatinine peaked at 3.4 Nephrology following when no further bleeding without CBI times 24 hour will remove Mondragon and to void trial (2) Gross hematuria: Code(s): R31.0 - Gross hematuria Status: Acute Assessment and Plan: -Patient does has history of prostate cancer with a prostatectomy. Patient presented to the ER concerned of gross hematuria. -UA: RBC >75, WBC 4-6, color red -urology consulted -monitor H&H -pt hx of prostate cancer -patient underwent ultrasound of the bladder per urology -retroperitoneum ultrasound impression: Bilateral renal status without hydronephrosis, masslike filling defect along the inferior wall to the bladder with differential including clot, nodular prostatomegaly or primary bladder cancer. -cystoscopy evacuation of clots preformed 06/18/22 -600-700cc of clot evacuated -CBI started and Mondragon replaced in surgery 06/19 -CT abdomen pelvis: 14 mm hemorrhagic cyst versus malignancy -nephrology consulted and following patient. associated acute blood loss anemia requiring transfusion this admission on 06/19/2022 (3) Urinary retention: Code(s): R33.9 - Retention of urine, unspecified Status: Acute Assessment and Plan: Mondragon catheter insertion with CBI Urology following attempt void trial (4) Hypokalemia: Code(s): E87.6 - Hypokalemia Status: Acute Assessment and Plan: replace monitor (5) Hyponatremia: Code(s): E87.1 - Hypo-osmolality and hyponatremia Status: Acute Assessment and Plan: -Pt states decreased oral intake over the past couple days prior to ER arrival -Sodium at admission was 125 -likely due to dehydration -fluids discontinued -urine sodium and creatinine and urine osmolality pending. (6) Elevated troponin: Code(s): R77.8 - Other specified abnormalities of plasma proteins Status: Acute Assessment and Plan: -Mildly elevated at 0.041 -Pt without chest pain -No evidence of EKG changes from previous one on 05/15/2022 -Echo: No significant valve dysfunction, normal left ventricular size and systolic function with concentric LVH -Telemetry (7) Community acquired pneumonia: Code(s): J18.9 - Pneumonia, unspecified organism Status: Acute Assessment and Plan: -CXR impression: persistently small lung volumes, interstitial opacities in left lower lung zone, consistent with atelectasis vs chronic interstitial lung disease -Ceftriaxone 1 gram IV q24H, Azithromycin 500mg IV q24H and Vancomycin due to coverage for hospital acquired pneumonia -Sputum culture order -blood culture no growth to date -spirometry -Monitor vital signs, I&Os, neuro status and patient is a fall risk -Follow WBC, serum electrolytes, temperature curves and cultures -Oxygen via NC; wean as tolerated. Keep SpO2 greater than 90% -discontinue IV fluids -DuoNeb q6H and Albuterol q2H PRN -P.r.n. Tylenol, Zofran 06/19 -CT chest abdomen and pelvis ordered findings of small left pleural effusion, small lung volumes with mild atelectasis bilaterally mild emphysema. Small volume of hematoma in the bladder. -IV antibiotics discontinued
--- NOTE | 2022-06-21 14:56 | PC.NURSE ---
Patient had clear urine flowing through catheter from shift change until 1330. CBI resumed at this time.
--- NOTE | 2022-06-21 15:33 | PM.PNNEP ---
Progress Note: A&P Assessment and Plan (1) GERRI (acute kidney injury): Code(s): N17.9 - Acute kidney failure, unspecified Status: Acute Assessment and Plan: improvement noted admitted with a creatinine of 2.6mg/dl transient fall to 2.1mg/dl then 3.4mg/dl (on 06/19/22) initially though to be secondary to obstruction/urinary retention complicated by bladder clots s/p clot removal and gregory catheter in place could relative hypotension (90s systolic) and/or mild ATN from pneumonia be playing a role(?) unable to check urine studies (due to previous use of CBI) follow trend of repeat labs and UOP (2) Stage 3b chronic kidney disease: Code(s): N18.32 - Chronic kidney disease, stage 3b Status: Chronic Assessment and Plan: creatinine running ~ 1.8 - 2.0mg/dl on last hospitalization (May 2022) presumably due to HTN, vascular disease, and age (3) Hyponatremia: Code(s): E87.1 - Hypo-osmolality and hyponatremia Status: Acute Assessment and Plan: improvement noted normal sodium at baseline possibly due to GERRI (?) follow trend for now (4) Urinary retention: Code(s): R33.9 - Retention of urine, unspecified Status: Acute Assessment and Plan: gregory catheter in place Urology following (5) Gross hematuria: Code(s): R31.0 - Gross hematuria Status: Acute Assessment and Plan: s/p cystoscopy and clot removal Urology following as well (6) Anemia: Code(s): D64.9 - Anemia, unspecified Status: Acute Assessment and Plan: as noted by AM labs due to hematuria versus GERRI on CKD versus both(?) PRBC transfusion per protocol (7) Community acquired pneumonia: Code(s): J18.9 - Pneumonia, unspecified organism Status: Acute Assessment and Plan: on antibiotics, supplemental oxygen, and nebulizer treatments follow culture data continue supportive therapy (8) Hypertension: Code(s): I10 - Essential (primary) hypertension Status: Chronic Assessment and Plan: reasonable control at this time some relative hypotension on admission follow trend of hemodynamics Will continue to follow. Subjective Date/time seen: 06/21/22 15:33 No new issues or problems to report overnight or earlier this morning; hematuria appears to have resolved and CBI has been on since yesterday afternoon; mild SOB voiced in association with some wheezing as well; no acute distress noted. Exam Narrative: General: WD/WN male in NAD Heart: normal S1 and S2; no rub Lungs: coarse with few wheezes noted Abdomen: soft, nontender, nondistended, positive bowel sounds Extremities: no cyanosis or clubbing; no edema Skin: warm and intact Objective Data Vital Signs Vital Signs: Vital Signs Temp Pulse Resp BP Pulse Ox O2 Del Method O2 Flow Rate 06/21/22 15:16 80 18 06/21/22 15:09 78 18 06/21/22 12:46 92/41 L 06/21/22 12:00 77 06/21/22 09:30 98 Nasal Cannula 1 06/21/22 09:55 97.5 F L 83 18 111/52 L 98 06/21/22 09:33 84 06/21/22 08:20 Nasal Cannula 2 06/21/22 08:00 89 06/21/22 04:00 80 06/21/22 03:58 98.6 F 79 18 135/52 L 94 06/21/22 03:06 81 20 06/21/22 02:55 81 20 06/20/22 20:35 96 Nasal Cannula 1 06/20/22 22:00 98 06/21/22 00:00 77 06/20/22 20:35 78 20 06/20/22 23:50 98.9 F 77 18 131/57 L 96 06/20/22 20:00 98 Nasal Cannula 1 06/20/22 20:00 79 06/20/22 20:00 97.9 F 66 18 134/60 95 06/20/22 20:54 66 06/20/22 20:26 76 20 Intake/Output Intake/Output: Intake & Output 06/18/22 06/19/22 06/20/22 06/21/22 23:59 23:59 23:59 23:59 Intake Total 4140 2410 3270 1100 Output Total 3675 8167 879 0128 Balance 462 500 1604 -4590 Meds/Results Medications: Active Medications Generic
--- NOTE | 2022-06-21 15:33 | P.PNNP_ITS ---
Progress Note: A&P Assessment and Plan (1) GERRI (acute kidney injury): Code(s): N17.9 - Acute kidney failure, unspecified Status: Acute Assessment and Plan: * improvement noted * admitted with a creatinine of 2.6mg/dl * transient fall to 2.1mg/dl then 3.4mg/dl (on 06/19/22) * initially though to be secondary to obstruction/urinary retention complicated by bladder clots * s/p clot removal and gregory catheter in place * could relative hypotension (90s systolic) and/or mild ATN from pneumonia be playing a role(?) * unable to check urine studies (due to previous use of CBI) * follow trend of repeat labs and UOP (2) Stage 3b chronic kidney disease: Code(s): N18.32 - Chronic kidney disease, stage 3b Status: Chronic Assessment and Plan: * creatinine running ~ 1.8 - 2.0mg/dl on last hospitalization (May 2022) * presumably due to HTN, vascular disease, and age (3) Hyponatremia: Code(s): E87.1 - Hypo-osmolality and hyponatremia Status: Acute Assessment and Plan: * improvement noted * normal sodium at baseline * possibly due to GERRI (?) * follow trend for now (4) Urinary retention: Code(s): R33.9 - Retention of urine, unspecified Status: Acute Assessment and Plan: * gregory catheter in place * Urology following (5) Gross hematuria: Code(s): R31.0 - Gross hematuria Status: Acute Assessment and Plan: * s/p cystoscopy and clot removal * Urology following as well (6) Anemia: Code(s): D64.9 - Anemia, unspecified Status: Acute Assessment and Plan: * as noted by AM labs * due to hematuria versus GERRI on CKD versus both(?) * PRBC transfusion per protocol (7) Community acquired pneumonia: Code(s): J18.9 - Pneumonia, unspecified organism Status: Acute Assessment and Plan: * on antibiotics, supplemental oxygen, and nebulizer treatments * follow culture data * continue supportive therapy (8) Hypertension: Code(s): I10 - Essential (primary) hypertension Status: Chronic Assessment and Plan: * reasonable control at this time * some relative hypotension on admission * follow trend of hemodynamics Will continue to follow. Subjective Date/time seen: 06/21/22 15:33 No new issues or problems to report overnight or earlier this morning; hematuria appears to have resolved and CBI has been on since yesterday afternoon; mild SOB voiced in association with some wheezing as well; no acute distress noted. Exam Narrative: General: WD/WN male in NAD Heart: normal S1 and S2; no rub Lungs: coarse with few wheezes noted Abdomen: soft, nontender, nondistended, positive bowel sounds Extremities: no cyanosis or clubbing; no edema Skin: warm and intact Objective Data Vital Signs Vital Signs: Vital Signs Temp Pulse Resp BP Pulse Ox O2 Del Method O2 Flow Rate 06/21/22 15:16 80 18 06/21/22 15:09 78 18 06/21/22 12:46 92/41 L 06/21/22 12:00 77 06/21/22 09:30 98 Nasal Cannula 1 06/21/22 09:55 97.5 F L 83 18 111/52 L 98 06/21/22 09:33 84 06/21/22 08:20 Nasal Cannula 2 06/21/22 08:00 89 06/21/22 04:00 80 06/21/22 03:58 98.6 F 79 18 135/52 L 94
--- NOTE | 2022-06-21 16:12 | PC.NURSE ---
Patient reports feeling wet , albeit his catheter was still in place. Noticed and verified, alerted charge nurse. Irrigated the catheter and removed a clot that was lodged within. Assessed and opened CBI to flush bladder. CBI irrigation continued at a moderated rate.
[2022-06-21 17:58] LABS: Hematocrit 28.2 % (42.0-52.0); Hemoglobin 9.3 g/dL (14.0-18.0)
[2022-06-22] VITALS (19 sets, daily range): BP systolic 107–148; BP diastolic 49–85; PULSE 64–86; RESP 16–22; TEMP 36.1–36.9; O2SAT 92–99
[2022-06-22] MEDS: ALBUTEROL SULFATE NEB 2.5 MG/3 ML INH INHALATION ×4 (02:02→20:20)
[2022-06-22] MEDS: IPRATROPIUM BR 0.02% INH SOLN 0.5 MG/2.5 ML VIAL INHALATION ×4 (02:02→20:20)
[2022-06-22 05:58] LABS: Basophils Absolute Auto 0.1 K/mm3 (0.0-0.1); Basophils Percent Auto 0.5 % (0.2-1.2); Eosinophils Absolute Auto 0.2 K/mm3 (0-0.3); Eosinophils Percent Auto 1.2 % (0-4.4); Hematocrit 24.4 % (42.0-52.0); Hemoglobin 8.1 g/dL (14.0-18.0); Immature Granulocyte Absolute 0.98 K/mm3 (0.00-0.031); Immature Granulocyte Percent A 7.3 % (0-0.5); Lymphocytes Absolute Auto 1.16 K/mm3 (0.9-3.2); Lymphocytes Percent Auto 8.7 % (18.3-44.2); Mean Corpuscular HGB Conc 33.2 g/dl (32-36); Mean Corpuscular Hemoglobin 32.4 pg (26-34); Mean Corpuscular Volume 97.6 fl (80-100); Mean Platelet Volume 11.1 fl (7.4-10.4); Monocytes Absolute Auto 1.2 K/mm3 (0.1-0.6); Monocytes Percent Auto 9.1 % (2.6-8.5); Neutrophils Absolute Auto 9.8 K/mm3 (1.3-6.7); Neutrophils Percent Auto 73.2 % (45.5-73.1); Platelet Count Result 237 k/mm3 (150-375); Red Cell Distribution Width 15.7 % (11.5-14.5); White Blood Count 13.4 K/mm3 (4.5-10.0)
[2022-06-22 06:43] LABS: Alanine Aminotransferase 24 U/L (6-50); Albumin Level 3.2 g/dL (3.5-5.1); Alkaline Phosphatase 87 U/L (38-126); Anion Gap 6 mmol/L (8-16); Aspartate Amino Transferase 28 U/L (17-59); Bilirubin,Total 0.5 mg/dL (0.2-1.3); Blood Urea Nitrogen 47 mg/dL (9-20); Calcium 9.1 mg/dL (8.4-10.2); Carbon Dioxide 29 mmol/L (22-30); Chloride 98 mmol/L (98-107); Estimated CRCL calculation 40 ml/min; Estimated Glomerular Filt Rate 35; Glucose 104 mg/dL (65-110); Magnesium 1.7 mg/dL (1.6-2.3); Potassium 3.5 mmol/L (3.4-5.0); Sodium 133 mmol/L (137-145)
--- NOTE | 2022-06-22 07:23 | WPDUROPN2 ---
Progress Note: A&P Assessment and Plan (1) Gross hematuria: Code(s): R31.0 - Gross hematuria Status: Acute Assessment and Plan: CBI is off. Urine is just pink tinged. I think the presence of the catheter is likely irritating the bladder neck exacerbate hematuria. I would recommend removing the catheter and allowing him to void on his own. Subjective Subjective Date/Time Seen: 06/22/22 07:23 he is having some hematuria on and off. I think it is more due to the Mondragon balloon sitting at the bladder neck and irritation from that than anything else. Exam Narrative: He is in no acute distress. He is resting comfortably. Mondragon catheter is in place. Urine is pink tinged. CBI is off Objective Data Vital Signs Vital Signs: Vital Signs - 24 hr 06/21/22 08:00 06/21/22 08:20 06/21/22 09:33 Temperature Pulse Rate 89 84 Respiratory Rate Blood Pressure Pulse Oximetry Oxygen Delivery Nasal Cannula Oxygen Flow Rate 2 06/21/22 09:55 06/21/22 09:30 06/21/22 12:00 Temperature 97.5 F L Pulse Rate 83 77 Respiratory Rate 18 Blood Pressure 111/52 L Pulse Oximetry 98 98 Oxygen Delivery Nasal Cannula Oxygen Flow Rate 1 06/21/22 12:46 06/21/22 15:09 06/21/22 15:16 Temperature Pulse Rate 78 80 Respiratory Rate 18 18 Blood Pressure 92/41 L Pulse Oximetry Oxygen Delivery Oxygen Flow Rate 06/21/22 16:00 06/21/22 17:42 06/21/22 20:38 Temperature 98.2 F Pulse Rate 81 78 89 Respiratory Rate 20 20 Blood Pressure 121/47 L Pulse Oximetry 95 Oxygen Delivery Oxygen Flow Rate 06/21/22 20:46 06/21/22 20:47 06/21/22 20:47 Temperature Pulse Rate 82 72 Respiratory Rate 20 Blood Pressure Pulse Oximetry 94 Oxygen Delivery Nasal Cannula Oxygen Flow Rate 1 06/21/22 21:00 06/21/22 20:00 06/21/22 23:45 Temperature 98.0 F 98.7 F Pulse Rate 81 78 77 Respiratory Rate 18 18 Blood Pressure 141/71 H 143/60 H Pulse Oximetry 95 94 Oxygen Delivery Oxygen Flow Rate 06/22/22 00:00 06/22/22 02:03 06/22/22 02:10 Temperature Pulse Rate 80 75 78 Respiratory Rate 20 18 Blood Pressure Pulse Oximetry Oxygen Delivery Oxygen Flow Rate 06/22/22 03:53 06/22/22 04:00 Temperature 98.0 F Pulse Rate 86 67 Respiratory Rate 18 Blood Pressure 148/66 H Pulse Oximetry 92 Oxygen Delivery Oxygen Flow Rate Intake/Output Intake/Output: Intake & Output 06/19/22 06/20/22 06/21/22 06/22/22 23:59 23:59 23:59 23:59 Intake Total 2410 3270 2170 250 Output Total 2669 947 8541 Balance 460 2420 -2580 250 Meds/Results Medications: Active Medications Generic Name Dose Route Start Last Admin Trade Name Freq PRN Reason Stop Dose Admin Acetaminophen 975 mg 06/17/22 23:24 06/20/22 11:25 Acetaminophen 325 Mg Tablet PO 975 mg Q8H PRN Administration Mild Pain (1-3) Or Fever Albuterol 2.5 mg 06/18/22 02:00 06/22/22 02:02 Albuterol Sulfate Neb 2.5 Mg/3 Ml Inh INHALATION 2.5 mg Q6HRT JAYRO Administration Amlodipine Besylate 10 mg 06/17/22 23:35 06/21/22 20:47 Amlodipine Besylate 5 Mg Tablet PO 10 mg Q12HR JAYRO Administration Buspirone HCl 15 mg 06/17/22 23:35 06/21/22 20:47 Buspirone Hcl 5 Mg Tablet PO 15 mg Q12HR JAYRO Administration Carvedilol 25 mg 06/17/22 23:35 06/21/22 20:47 Carvedilol 25 Mg Tablet PO 25 mg Q12HR JAYRO Administration Docusate Sodium 100 mg 06/17/22 23:35 06/21/22 20:48 Docusate Sodium 100 Mg Capsule PO 100 mg Q12HR JAYRO Administration Duloxetine HCl 60 mg 06/18/22 09:00 06/21/22 09:34 Duloxetine Hcl 60 Mg Capsule.Dr PO 60 mg QAM JAYRO Administration Folic Acid 1 mg 06/18/22 09:00 06/21/22 09:34 Folic Acid 1 Mg Tablet PO 1 mg DAILY JAYRO Administration Guaifenesin 600 mg 06/17/22 21:00 06/21/22 20:48 Guaifenesin 12 Hr 600 Mg Tabcr PO 600 mg Q12HR JAYRO Administration Home Med 1
[2022-06-22] MEDS: busPIRone HCL 5 MG TABLET 15 MG PO ×2 (08:31→20:28)
[2022-06-22] MEDS: amLODIPine BESYLATE 5 MG TABLET 10 MG PO ×2 (08:31→20:28)
[2022-06-22] MEDS: carvediloL 25 MG TABLET PO ×2 (08:32→21:00)
[2022-06-22] MEDS: CHOLECALCIFEROL 1,000 UNITS TABLET 1000 UNITS PO (08:32)
[2022-06-22] MEDS: DOCUSATE SODIUM 100 MG CAPSULE PO ×2 (08:33→20:28)
[2022-06-22] MEDS: guaiFENesin 12 HR 600 MG TABCR PO ×2 (08:33→20:28)
[2022-06-22] MEDS: DULoxetine HCL 60 MG CAPSULE.DR PO (08:33)
[2022-06-22] MEDS: FOLIC ACID 1 MG TABLET PO (08:33)
[2022-06-22] MEDS: PANTOPRAZOLE SODIUM IV 40 MG VIAL IV PUSH ×2 (08:34→20:28)
[2022-06-22] MEDS: NEOMYCIN/POLYMYXIN/BACITRACIN OINTMENT 15 GM TUBE 1 APPLIC TOPICAL (08:34)
--- NOTE | 2022-06-22 12:41 | PM.IMPN ---
Progress Note: A&P Assessment and Plan (1) Acute kidney injury superimposed on chronic kidney disease: Code(s): N17.9 - Acute kidney failure, unspecified; N18.9 - Chronic kidney disease, unspecified Status: Acute Assessment and Plan: -BUN and Cr 41 and 2.6 on arrival Last discharge creatinine was 2. 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 Small with of hematoma in the bladder. 14 mm left kidney mass; Hemorrhagic cyst versus neoplasm. MRI with and without contrast recommended. -MRI unable to be ordered due to patient having history of shrapnel in face and chest. Creatinine continues to improve now. Creatinine peaked at 3.4 Nephrology following when no further bleeding without CBI times 24 hour will remove Mondragon and to void trial Continues to have intermittent bleeding. Urologist suggest to remove the Mondragon catheter may be traumatic Creatinine continues to improve down to his baseline level now. (2) Gross hematuria: Code(s): R31.0 - Gross hematuria Status: Acute Assessment and Plan: -Patient does has history of prostate cancer with a prostatectomy. Patient presented to the ER concerned of gross hematuria. -UA: RBC >75, WBC 4-6, color red -urology consulted -monitor H&H -pt hx of prostate cancer -patient underwent ultrasound of the bladder per urology -retroperitoneum ultrasound impression: Bilateral renal status without hydronephrosis, masslike filling defect along the inferior wall to the bladder with differential including clot, nodular prostatomegaly or primary bladder cancer. -cystoscopy evacuation of clots preformed 06/18/22 -600-700cc of clot evacuated -CBI started and Mondragon replaced in surgery 06/19 -CT abdomen pelvis: 14 mm hemorrhagic cyst versus malignancy -nephrology consulted and following patient. associated acute blood loss anemia requiring transfusion this admission on 06/19/2022 continues to have intermittent hematuria with clot. Could be traumatic however unsure Will check back with Urology if okay with removing Mondragon and watch. (3) Urinary retention: Code(s): R33.9 - Retention of urine, unspecified Status: Acute Assessment and Plan: Mondragon catheter insertion with CBI Urology following Planned void trial today if okay with Urology (4) Hypokalemia: Code(s): E87.6 - Hypokalemia Status: Acute Assessment and Plan: replace monitor (5) Hyponatremia: Code(s): E87.1 - Hypo-osmolality and hyponatremia Status: Acute Assessment and Plan: -Pt states decreased oral intake over the past couple days prior to ER arrival -Sodium at admission was 125 -likely due to dehydration -fluids discontinued -urine sodium and creatinine and urine osmolality pending. (6) Elevated troponin: Code(s): R77.8 - Other specified abnormalities of plasma proteins Status: Acute Assessment and Plan: -Mildly elevated at 0.041 -Pt without chest pain -No evidence of EKG changes from previous one on 05/15/2022 -Echo: No significant valve dysfunction, normal left ventricular size and systolic function with concentric LVH -Telemetry (7) Community acquired pneumonia: Code(s): J18.9 - Pneumonia, unspecified organism Status: Acute Assessment and Plan: -CXR impression: persistently small lung volumes, interstitial opacities in left lower lung zone, consistent with atelectasis vs chronic interstitial lung disease -Ceftriaxone 1 gram IV q24H, Azithromycin 500mg IV q24H and Vancomycin due to coverage for hospital acquired pneumonia -Sputum culture order -blood culture no growth to date -spirometry -Monitor vital signs, I&Os, neuro status and patient is a fall risk -Follow WBC, serum electrolytes, temperature curves and cultures -Oxygen via NC; wean as tolerated. Keep SpO2 greater than 9
--- NOTE | 2022-06-22 12:53 | P.PNNP_ITS ---
Progress Note: A&P Assessment and Plan (1) GERRI (acute kidney injury): Code(s): N17.9 - Acute kidney failure, unspecified Status: Acute Assessment and Plan: * improving if not resolved * admitted with a creatinine of 2.6mg/dl * transient fall to 2.1mg/dl then 3.4mg/dl (on 06/19/22) * initially though to be secondary to obstruction/urinary retention complicated by bladder clots * s/p clot removal and gregory catheter in place * suspect relative hypotension (90s systolic) and/or mild ATN from pneumonia along bacteremia also playing a role * follow trend of repeat labs and UOP (2) Stage 3b chronic kidney disease: Code(s): N18.32 - Chronic kidney disease, stage 3b Status: Chronic Assessment and Plan: * creatinine running ~ 1.8 - 2.0mg/dl on last hospitalization (May 2022) * presumably due to HTN, vascular disease, and age (3) Hyponatremia: Code(s): E87.1 - Hypo-osmolality and hyponatremia Status: Acute Assessment and Plan: * improvement noted * normal sodium at baseline * likely due to GERRI (?) * follow trend for now (4) Bacteremia: Code(s): R78.81 - Bacteremia Status: Acute Assessment and Plan: * blood culture with E.coli * on antibiotics (5) Gross hematuria: Code(s): R31.0 - Gross hematuria Status: Acute Assessment and Plan: * s/p cystoscopy and clot removal * continues on CBI * Urology following as well (6) Anemia: Code(s): D64.9 - Anemia, unspecified Status: Acute Assessment and Plan: * due to hematuria versus GERRI on CKD versus both(?) * PRBC transfusion per protocol * follow trend of H/H (7) Community acquired pneumonia: Code(s): J18.9 - Pneumonia, unspecified organism Status: Acute Assessment and Plan: * on antibiotics, supplemental oxygen, and nebulizer treatments * follow culture data * continue supportive therapy (8) Hypertension: Code(s): I10 - Essential (primary) hypertension Status: Chronic Assessment and Plan: * reasonable control at this time * some relative hypotension on admission * follow trend of hemodynamics Since renal function back to baseline -- will continue to follow from a distance Subjective Date/time seen: 06/22/22 12:53 Improvement in renal function noted by AM labs; issues with on/off hematuria and clots that require gregory catheter flushing overnight; no acute distress voiced at the time of my visit; no other issues.events overnight or earlier this AM. Exam Narrative: General: WD/WN male in NAD Heart: normal S1 and S2; no rub Lungs: coarse with few wheezes noted Abdomen: soft, nontender, nondistended, positive bowel sounds Extremities: no cyanosis or clubbing; no edema Skin: warm and intact Objective Data Vital Signs Vital Signs: Vital Signs Temp Pulse Resp BP Pulse Ox O2 Del Method O2 Flow Rate 06/22/22 11:01 96.9 F L 75 22 H 107/85 99 06/22/22 08:32 76 06/22/22 07:58 85 22 H 06/22/22 07:45 83 22 H 06/22/22 04:00 67 06/22/22 03:53 98.0 F 86 18 148/66 H 92 06/22/22 02:10 78 18 06/22/22 02:03 75 20 06/22/22 00:00 80 06/21/22 23:45 98.7 F 77 18 143/60 H 94 06/21/22 20:00 78
--- NOTE | 2022-06-22 12:53 | PM.PNNEP ---
Progress Note: A&P Assessment and Plan (1) GERRI (acute kidney injury): Code(s): N17.9 - Acute kidney failure, unspecified Status: Acute Assessment and Plan: improving if not resolved admitted with a creatinine of 2.6mg/dl transient fall to 2.1mg/dl then 3.4mg/dl (on 06/19/22) initially though to be secondary to obstruction/urinary retention complicated by bladder clots s/p clot removal and gregory catheter in place suspect relative hypotension (90s systolic) and/or mild ATN from pneumonia along bacteremia also playing a role follow trend of repeat labs and UOP (2) Stage 3b chronic kidney disease: Code(s): N18.32 - Chronic kidney disease, stage 3b Status: Chronic Assessment and Plan: creatinine running ~ 1.8 - 2.0mg/dl on last hospitalization (May 2022) presumably due to HTN, vascular disease, and age (3) Hyponatremia: Code(s): E87.1 - Hypo-osmolality and hyponatremia Status: Acute Assessment and Plan: improvement noted normal sodium at baseline likely due to GERRI (?) follow trend for now (4) Bacteremia: Code(s): R78.81 - Bacteremia Status: Acute Assessment and Plan: blood culture with E.coli on antibiotics (5) Gross hematuria: Code(s): R31.0 - Gross hematuria Status: Acute Assessment and Plan: s/p cystoscopy and clot removal continues on CBI Urology following as well (6) Anemia: Code(s): D64.9 - Anemia, unspecified Status: Acute Assessment and Plan: due to hematuria versus GERRI on CKD versus both(?) PRBC transfusion per protocol follow trend of H/H (7) Community acquired pneumonia: Code(s): J18.9 - Pneumonia, unspecified organism Status: Acute Assessment and Plan: on antibiotics, supplemental oxygen, and nebulizer treatments follow culture data continue supportive therapy (8) Hypertension: Code(s): I10 - Essential (primary) hypertension Status: Chronic Assessment and Plan: reasonable control at this time some relative hypotension on admission follow trend of hemodynamics Since renal function back to baseline -- will continue to follow from a distance Subjective Date/time seen: 06/22/22 12:53 Improvement in renal function noted by AM labs; issues with on/off hematuria and clots that require gregory catheter flushing overnight; no acute distress voiced at the time of my visit; no other issues.events overnight or earlier this AM. Exam Narrative: General: WD/WN male in NAD Heart: normal S1 and S2; no rub Lungs: coarse with few wheezes noted Abdomen: soft, nontender, nondistended, positive bowel sounds Extremities: no cyanosis or clubbing; no edema Skin: warm and intact Objective Data Vital Signs Vital Signs: Vital Signs Temp Pulse Resp BP Pulse Ox O2 Del Method O2 Flow Rate 06/22/22 11:01 96.9 F L 75 22 H 107/85 99 06/22/22 08:32 76 06/22/22 07:58 85 22 H 06/22/22 07:45 83 22 H 06/22/22 04:00 67 06/22/22 03:53 98.0 F 86 18 148/66 H 92 06/22/22 02:10 78 18 06/22/22 02:03 75 20 06/22/22 00:00 80 06/21/22 23:45 98.7 F 77 18 143/60 H 94 06/21/22 20:00 78 06/21/22 21:00 98.0 F 81 18 141/71 H 95 06/21/22 20:47 72 06/21/22 20:47 94 Nasal Cannula 1 06/21/22 20:46 82 20 06/21/22 20:38 89 20 06/21/22 17:42 98.2 F 78 20 121/47 L 95 06/21/22 16:00 81 06/21/22 15:16 80 18 06/21/22 15:09 78 18 Intake/Output Intake/Output: Intake & Output 06/19/22 06/20/22 06/21/22 06/22/22 23:59 23:59 23:59 23:59 Intake Total 2410 3270 2170 490 Output Total 9711 152 1591 Balance 460 2420 -2580 490 Meds/Results Medications: Active Medications Generic Name Dose Route Start Last Admin Trade Name Freq PRN Reason Stop Dose Admin Acetamino
[2022-06-22] MEDS: cefTRIAXone 2 GM in SODIUM CHLORIDE 0.9% IV 100 ML 200 ML IVPB (14:57)
[2022-06-22] MEDS: WATER FOR IRRIGATION, STERILE 1,000 ML BOTTLE 1000 ML ×2 (15:02→21:00)
[2022-06-23] VITALS (20 sets, daily range): BP systolic 112–145; BP diastolic 47–63; PULSE 68–86; RESP 14–22; TEMP 36.3–37.2; O2SAT 93–98
[2022-06-23] MEDS: IPRATROPIUM BR 0.02% INH SOLN 0.5 MG/2.5 ML VIAL INHALATION ×4 (03:00→21:06)
[2022-06-23] MEDS: ALBUTEROL SULFATE NEB 2.5 MG/3 ML INH INHALATION ×4 (03:00→21:06)
[2022-06-23 05:16] LABS: Hematocrit 24.2 % (42.0-52.0); Mean Corpuscular HGB Conc 33.1 g/dl (32-36); Mean Corpuscular Hemoglobin 32.5 pg (26-34); Mean Corpuscular Volume 98.4 fl (80-100); Mean Platelet Volume 11.1 fl (7.4-10.4); Platelet Count Result 264 k/mm3 (150-375); Red Blood Count 2.46 M/mm3 (4.6-6.20); Red Cell Distribution Width 15.7 % (11.5-14.5); White Blood Count 12.4 K/mm3 (4.5-10.0)
[2022-06-23 05:34] LABS: Alanine Aminotransferase 25 U/L (6-50); Albumin Level 3.2 g/dL (3.5-5.1); Alkaline Phosphatase 96 U/L (38-126); Anion Gap 6 mmol/L (8-16); Aspartate Amino Transferase 29 U/L (17-59); Bilirubin,Total 0.4 mg/dL (0.2-1.3); Blood Urea Nitrogen 41 mg/dL (9-20); Carbon Dioxide 30 mmol/L (22-30); Chloride 100 mmol/L (98-107); Estimated CRCL calculation 42 ml/min; Estimated Glomerular Filt Rate 37; Glucose 109 mg/dL (65-110); Magnesium 1.6 mg/dL (1.6-2.3); Potassium 3.5 mmol/L (3.4-5.0); Sodium 136 mmol/L (137-145)
[2022-06-23 05:52] LABS: Band Neutrophils Percent 1 % (0-6); Eosinophils Absolute Manual 0.37 K/mm3 (0.02-0.5); Eosinophils Percent Manual 3 % (0-4); Lymphocytes Absolute Manual 1.61 K/mm3 (1.1-4.5); Lymphocytes Percent Manual 13 % (18-44); Metamyelocytes Percent 3 %; Monocytes Absolute Manual 1.11 K/mm3 (0.1-0.90); Monocytes Percent Manual 9 % (3-9); Myelocytes Percent 1 %; Neutrophils Percent Manual 70 % (46-73); Total Cells Counted 100
[2022-06-23 05:58] LABS: Platelet Estimate Adequate (Adequate)
[2022-06-23 05:59] LABS: Schistocytes None Seen (NORMAL); Stomatocytes 1+ (NORMAL)
[2022-06-23] MEDS: amLODIPine BESYLATE 5 MG TABLET 10 MG PO ×2 (09:33→20:48)
[2022-06-23] MEDS: busPIRone HCL 5 MG TABLET 15 MG PO ×2 (09:33→20:48)
[2022-06-23] MEDS: DOCUSATE SODIUM 100 MG CAPSULE PO ×2 (09:34→20:48)
[2022-06-23] MEDS: DULoxetine HCL 60 MG CAPSULE.DR PO (09:34)
[2022-06-23] MEDS: carvediloL 25 MG TABLET PO ×2 (09:34→20:48)
[2022-06-23] MEDS: CHOLECALCIFEROL 1,000 UNITS TABLET 1000 UNITS PO (09:34)
[2022-06-23] MEDS: FOLIC ACID 1 MG TABLET PO (09:34)
[2022-06-23] MEDS: guaiFENesin 12 HR 600 MG TABCR PO ×2 (09:35→20:48)
[2022-06-23] MEDS: PANTOPRAZOLE SODIUM IV 40 MG VIAL IV PUSH ×2 (09:35→20:48)
[2022-06-23] MEDS: NEOMYCIN/POLYMYXIN/BACITRACIN OINTMENT 15 GM TUBE 1 APPLIC TOPICAL (09:35)
[2022-06-23] MEDS: cefTRIAXone 2 GM in SODIUM CHLORIDE 0.9% IV 100 ML 200 ML IVPB (09:37)
--- NOTE | 2022-06-23 10:41 | WPDUROPN2 ---
Progress Note: A&P Assessment and Plan (1) Gross hematuria: Code(s): R31.0 - Gross hematuria Status: Acute Assessment and Plan: After discussion with patient he would strongly prefer to keep CBI going and if clear tomorrow morning clamp and potentially remove catheter for TOV in morning. Will comply with his request. Subjective Subjective Date/Time Seen: 06/23/22 10:41 Review of Systems Review of Systems: CAROL, patient and nurse reports several small clots last night, otherwise no problems, CBI continues on moderate-slow drip. Exam Narrative: NAD A&Ox3 RRR eWOB S/NT/ND CBI catheter draining clear effluent on mod-slow drip. Objective Data Vital Signs Vital Signs: Vital Signs - 24 hr 06/22/22 11:01 06/22/22 13:15 06/22/22 13:23 Temperature 96.9 F L Pulse Rate 75 75 78 Respiratory Rate 22 H 20 20 Blood Pressure 107/85 Pulse Oximetry 99 06/22/22 15:10 06/22/22 12:00 06/22/22 16:00 Temperature 98.1 F Pulse Rate 71 64 69 Respiratory Rate 22 H Blood Pressure 131/49 L Pulse Oximetry 94 06/22/22 18:32 06/22/22 20:20 06/22/22 20:00 Temperature 98.3 F Pulse Rate 76 74 81 Respiratory Rate 22 H 16 Blood Pressure 145/59 H Pulse Oximetry 94 06/22/22 22:00 06/23/22 00:00 06/23/22 03:01 Temperature 98.4 F Pulse Rate 85 75 77 Respiratory Rate 16 14 Blood Pressure 129/61 Pulse Oximetry 94 06/23/22 02:00 06/23/22 04:00 06/23/22 05:38 Temperature 98.2 F 98.3 F Pulse Rate 80 73 81 Respiratory Rate 16 18 Blood Pressure 132/54 L 145/59 H Pulse Oximetry 93 96 06/23/22 08:11 06/23/22 09:34 Temperature Pulse Rate 84 84 Respiratory Rate 18 Blood Pressure Pulse Oximetry Intake/Output Intake/Output: Intake & Output 06/20/22 06/21/22 06/22/22 06/23/22 23:59 23:59 23:59 23:59 Intake Total 3270 2170 2085 940 Output Total 850 4750 1900 1999 Balance 2420 -2580 185 -1060 Meds/Results Medications: Active Medications Generic Name Dose Route Start Last Admin Trade Name Freq PRN Reason Stop Dose Admin Acetaminophen 975 mg 06/17/22 23:24 06/20/22 11:25 Acetaminophen 325 Mg Tablet PO 975 mg Q8H PRN Administration Mild Pain (1-3) Or Fever Albuterol 2.5 mg 06/18/22 02:00 06/23/22 08:09 Albuterol Sulfate Neb 2.5 Mg/3 Ml Inh INHALATION 2.5 mg Q6HRT JAYRO Administration Amlodipine Besylate 10 mg 06/17/22 23:35 06/23/22 09:33 Amlodipine Besylate 5 Mg Tablet PO 10 mg Q12HR JAYRO Administration Buspirone HCl 15 mg 06/17/22 23:35 06/23/22 09:33 Buspirone Hcl 5 Mg Tablet PO 15 mg Q12HR JAYRO Administration Carvedilol 25 mg 06/17/22 23:35 06/23/22 09:34 Carvedilol 25 Mg Tablet PO 25 mg Q12HR JAYRO Administration Docusate Sodium 100 mg 06/17/22 23:35 06/23/22 09:34 Docusate Sodium 100 Mg Capsule PO 100 mg Q12HR JAYRO Administration Duloxetine HCl 60 mg 06/18/22 09:00 06/23/22 09:34 Duloxetine Hcl 60 Mg Capsule.Dr PO 60 mg QAM JAYRO Administration Folic Acid 1 mg 06/18/22 09:00 06/23/22 09:34 Folic Acid 1 Mg Tablet PO 1 mg DAILY JAYRO Administration Guaifenesin 600 mg 06/17/22 21:00 06/23/22 09:35 Guaifenesin 12 Hr 600 Mg Tabcr PO 600 mg Q12HR JAYRO Administration Home Med 1 each 06/20/22 09:00 06/20/22 15:04 Humira 40mg/0.8ml (Adalimumab Auto-Injector)Use Home Supply SUB-Q 07/20/22 08:59 1 each [id number] JAYRO Administration Ceftriaxone Sodium 2 gm/ 100 mls @ 200 mls/hr 06/22/22 12:45 06/23/22 09:37 Sodium Chloride IVPB 200 mls/hr QAM JAYRO Administration Ipratropium [place] 0.5 mg 06/18/22 02:00 06/23/22 08:11 Ipratropium Br 0.02% Inh Soln 0.5 Mg/2.5 Ml Vial INHALATION 0.5 mg Q6HRT JAYRO Administration Neomycin/Polymyxin/Bacitracin 1 applic 06/20/22 11:25 06/23/22 09:35 Neomycin/Polymyxin/Bacitracin Ointment 15 Gm Tube TOPICAL 1 applic QAM JAYRO Administration Pantoprazole Sodium 40 mg 06/19/22 09:00 12
--- NOTE | 2022-06-23 11:42 | P.PNIM_ITS ---
Progress Note: A&P Assessment and Plan (1) Acute kidney injury superimposed on chronic kidney disease: Code(s): N17.9 - Acute kidney failure, unspecified; N18.9 - Chronic kidney disease, unspecified Status: Acute Assessment and Plan: -BUN and Cr 41 and 2.6 on arrival Last discharge creatinine was 2. 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 Small with of hematoma in the bladder. 14 mm left kidney mass; Hemorrhagic cyst versus neoplasm. MRI with and without contrast recommended. -MRI unable to be ordered due to patient having history of shrapnel in face and chest. Creatinine continues to improve now. Creatinine peaked at 3.4 Nephrology following when no further bleeding without CBI times 24 hour will remove Mondragon and to void trial Continues to have intermittent bleeding. Urologist suggest to remove the Mondragon catheter may be traumatic Creatinine continues to improve down to his baseline level now. (2) Gross hematuria: Code(s): R31.0 - Gross hematuria Status: Acute Assessment and Plan: -Patient does has history of prostate cancer with a prostatectomy. Patient presented to the ER concerned of gross hematuria. -UA: RBC >75, WBC 4-6, color red -urology consulted -monitor H&H -pt hx of prostate cancer -patient underwent ultrasound of the bladder per urology -retroperitoneum ultrasound impression: Bilateral renal status without hydronephrosis, masslike filling defect along the inferior wall to the bladder with differential including clot, nodular prostatomegaly or primary bladder cancer. -cystoscopy evacuation of clots preformed 06/18/22 -600-700cc of clot evacuated -CBI started and Mondragon replaced in surgery 06/19 -CT abdomen pelvis: 14 mm hemorrhagic cyst versus malignancy -nephrology consulted and following patient. associated acute blood loss anemia requiring transfusion this admission on 06/19/2022 continues to have intermittent hematuria with clot. Could be traumatic however unsure Urology following plans for CBI to continue today (3) Urinary retention: Code(s): R33.9 - Retention of urine, unspecified Status: Acute Assessment and Plan: Mondragon catheter insertion with CBI Urology following (4) Hypokalemia: Code(s): E87.6 - Hypokalemia Status: Acute Assessment and Plan: replace monitor (5) Hyponatremia: Code(s): E87.1 - Hypo-osmolality and hyponatremia Status: Acute Assessment and Plan: -Pt states decreased oral intake over the past couple days prior to ER arrival -Sodium at admission was 125 -likely due to dehydration -fluids discontinued -urine sodium and creatinine and urine osmolality pending. (6) Elevated troponin: Code(s): R77.8 - Other specified abnormalities of plasma proteins Status: Acute Assessment and Plan: -Mildly elevated at 0.041 -Pt without chest pain -No evidence of EKG changes from previous one on 05/15/2022 -Echo: No significant valve dysfunction, normal left ventricular size and systolic function with concentric LVH -Telemetry (7) Community acquired pneumonia: Code(s): J18.9 - Pneumonia, unspecified organism Status: Acute Assessment and Plan: -CXR impression: persistently small lung volumes, interstitial opacities in left lower lung zone, consistent with atelectasis vs chronic interstitial lung disease -Ceftriaxone 1 gram IV q24H, Az
[2022-06-24] VITALS (18 sets, daily range): BP systolic 122–149; BP diastolic 51–62; PULSE 64–89; RESP 16–20; TEMP 36.6–37.1; O2SAT 93–100
[2022-06-24] MEDS: ALBUTEROL SULFATE NEB 2.5 MG/3 ML INH INHALATION ×3 (02:57→14:42)
[2022-06-24] MEDS: IPRATROPIUM BR 0.02% INH SOLN 0.5 MG/2.5 ML VIAL INHALATION ×3 (02:57→14:42)
[2022-06-24 06:18] LABS: Hemoglobin 7.8 g/dL (14.0-18.0); Mean Corpuscular HGB Conc 32.5 g/dl (32-36); Mean Corpuscular Hemoglobin 32.9 pg (26-34); Mean Corpuscular Volume 101.3 fl (80-100); Mean Platelet Volume 11.2 fl (7.4-10.4); Platelet Count Result 299 k/mm3 (150-375); Red Blood Count 2.37 M/mm3 (4.6-6.20); Red Cell Distribution Width 15.8 % (11.5-14.5); White Blood Count 10.3 K/mm3 (4.5-10.0)
[2022-06-24 06:30] LABS: Alanine Aminotransferase 26 U/L (6-50); Albumin Level 3.4 g/dL (3.5-5.1); Alkaline Phosphatase 100 U/L (38-126); Anion Gap 7 mmol/L (8-16); Aspartate Amino Transferase 32 U/L (17-59); Bilirubin,Total 0.3 mg/dL (0.2-1.3); Blood Urea Nitrogen 35 mg/dL (9-20); Calcium 9.2 mg/dL (8.4-10.2); Carbon Dioxide 29 mmol/L (22-30); Chloride 101 mmol/L (98-107); Estimated CRCL calculation 44 ml/min; Estimated Glomerular Filt Rate 39; Glucose 108 mg/dL (65-110); Magnesium 1.7 mg/dL (1.6-2.3); Potassium 3.7 mmol/L (3.4-5.0); Sodium 137 mmol/L (137-145)
[2022-06-24 07:16] LABS: Band Neutrophils Percent 2 % (0-6); Basophils Percent Manual 1 % (0-1); Hypochromasia 1+ (NORMAL); Lymphocytes Absolute Manual 1.13 K/mm3 (1.1-4.5); Metamyelocytes Percent 1 %; Monocytes Percent Manual 3 % (3-9); Neutrophils Absolute Manual 8.65 K/mm3 (1.3-6.7); Neutrophils Percent Manual 82 % (46-73); Platelet Estimate Adequate (Adequate); Schistocytes None Seen (NORMAL); Total Cells Counted 100
[2022-06-24] MEDS: busPIRone HCL 5 MG TABLET 15 MG PO ×2 (08:27→20:12)
[2022-06-24] MEDS: amLODIPine BESYLATE 5 MG TABLET 10 MG PO ×2 (08:27→20:12)
[2022-06-24] MEDS: DOCUSATE SODIUM 100 MG CAPSULE PO ×2 (08:28→20:12)
[2022-06-24] MEDS: CHOLECALCIFEROL 1,000 UNITS TABLET 1000 UNITS PO (08:28)
[2022-06-24] MEDS: carvediloL 25 MG TABLET PO ×2 (08:28→20:13)
[2022-06-24] MEDS: DULoxetine HCL 60 MG CAPSULE.DR PO (08:29)
[2022-06-24] MEDS: FOLIC ACID 1 MG TABLET PO (08:29)
[2022-06-24] MEDS: guaiFENesin 12 HR 600 MG TABCR PO ×2 (08:29→20:12)
[2022-06-24] MEDS: PANTOPRAZOLE SODIUM IV 40 MG VIAL IV PUSH ×2 (08:29→20:13)
[2022-06-24] MEDS: NEOMYCIN/POLYMYXIN/BACITRACIN OINTMENT 15 GM TUBE 1 APPLIC TOPICAL (08:29)
--- NOTE | 2022-06-24 09:50 | WPDUROPN2 ---
Progress Note: A&P Assessment and Plan (1) Gross hematuria: Code(s): R31.0 - Gross hematuria Status: Acute Plan Disappointed that catheter has clotted off. Will make patient NPO tonight for possible clot evac and fulguration tomorrow. Mr. Mccollum agrees with plan. Subjective Subjective Date/Time Seen: 06/24/22 09:50 While I had hoped to proceed with catheter removal and trial of void this morning, the patient's nurse reports he had substantial clot burden that had to be irrigated at bedside with a piston syringe. He has just eaten breakfast. His CBI effluent is now clear. Exam Narrative: NAD A&Ox3 RRR eWOB S/NT/ND CBI catheter draining clear effluent on mod-slow drip. Objective Data Vital Signs Vital Signs: Vital Signs - 24 hr 06/23/22 10:00 06/23/22 14:00 06/23/22 12:00 Temperature 98.4 F 97.4 F L Pulse Rate 86 68 73 Respiratory Rate 18 16 Blood Pressure 144/63 H 125/47 L Pulse Oximetry 97 98 Oxygen Delivery 06/23/22 15:42 06/23/22 15:42 06/23/22 16:00 Temperature Pulse Rate 79 71 Respiratory Rate 18 Blood Pressure Pulse Oximetry 95 Oxygen Delivery 06/23/22 18:00 06/23/22 20:48 06/23/22 21:09 Temperature 97.9 F Pulse Rate 78 71 70 Respiratory Rate 18 22 H Blood Pressure 112/51 L Pulse Oximetry 98 Oxygen Delivery 06/23/22 21:10 06/23/22 21:19 06/23/22 21:57 Temperature 98.9 F Pulse Rate 74 71 Respiratory Rate 20 18 Blood Pressure 142/50 H Pulse Oximetry 95 96 Oxygen Delivery Room Air 06/23/22 20:00 06/24/22 00:00 06/24/22 02:59 Temperature Pulse Rate 75 69 71 Respiratory Rate 20 Blood Pressure Pulse Oximetry Oxygen Delivery 06/24/22 03:11 06/24/22 02:00 06/24/22 04:00 Temperature 98.2 F Pulse Rate 70 84 69 Respiratory Rate 20 16 Blood Pressure 142/62 H Pulse Oximetry 93 Oxygen Delivery 06/24/22 06:00 06/24/22 08:28 Temperature 97.8 F Pulse Rate 79 78 Respiratory Rate 20 Blood Pressure 141/62 H Pulse Oximetry 98 Oxygen Delivery Intake/Output Intake/Output: Intake & Output 06/21/22 06/22/22 06/23/22 06/24/22 23:59 23:59 23:59 23:59 Intake Total 2170 2085 3020 Output Total 4750 1900 1999 875 Balance -2580 185 1020 -875 Meds/Results Medications: Active Medications Generic Name Dose Route Start Last Admin Trade Name Freq PRN Reason Stop Dose Admin Acetaminophen 975 mg 06/17/22 23:24 06/20/22 11:25 Acetaminophen 325 Mg Tablet PO 975 mg Q8H PRN Administration Mild Pain (1-3) Or Fever Albuterol 2.5 mg 06/18/22 02:00 06/24/22 02:57 Albuterol Sulfate Neb 2.5 Mg/3 Ml Inh INHALATION 2.5 mg Q6HRT JAYRO Administration Amlodipine Besylate 10 mg 06/17/22 23:35 06/24/22 08:27 Amlodipine Besylate 5 Mg Tablet PO 10 mg Q12HR JAYRO Administration Buspirone HCl 15 mg 06/17/22 23:35 06/24/22 08:27 Buspirone Hcl 5 Mg Tablet PO 15 mg Q12HR JAYRO Administration Carvedilol 25 mg 06/17/22 23:35 06/24/22 08:28 Carvedilol 25 Mg Tablet PO 25 mg Q12HR JAYRO Administration Docusate Sodium 100 mg 06/17/22 23:35 06/24/22 08:28 Docusate Sodium 100 Mg Capsule PO 100 mg Q12HR JAYRO Administration Duloxetine HCl 60 mg 06/18/22 09:00 06/24/22 08:29 Duloxetine Hcl 60 Mg Capsule.Dr PO 60 mg QAM JAYRO Administration Folic Acid 1 mg 06/18/22 09:00 06/24/22 08:29 Folic Acid 1 Mg Tablet PO 1 mg DAILY JAYRO Administration Guaifenesin 600 mg 06/17/22 21:00 06/24/22 08:29 Guaifenesin 12 Hr 600 Mg Tabcr PO 600 mg Q12HR JAYRO Administration Home Med 1 each 06/20/22 09:00 06/20/22 15:04 Humira 40mg/0.8ml (Adalimumab Auto-Injector)Use Home Supply SUB-Q 07/20/22 08:59 1 each [id number] JAYRO Administration Ceftriaxone Sodium 2 gm/ 100 mls @ 200 mls/hr 06/22/22 12:45 06/23/22 10:07 Sodium Chloride IVPB Infused QAM JAYRO Infusion Ipratropium [place] 0.5 mg 06/18/22 02:00 06/24/22 02:57 I
[2022-06-24] MEDS: cefTRIAXone 2 GM in SODIUM CHLORIDE 0.9% IV 100 ML 200 ML IVPB (10:40)
--- NOTE | 2022-06-24 12:07 | PM.IMPN ---
Progress Note: A&P Assessment and Plan (1) Acute kidney injury superimposed on chronic kidney disease: Code(s): N17.9 - Acute kidney failure, unspecified; N18.9 - Chronic kidney disease, unspecified Status: Acute Assessment and Plan: -BUN and Cr 41 and 2.6 on arrival Last discharge creatinine was 2. 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 Small with of hematoma in the bladder. 14 mm left kidney mass; Hemorrhagic cyst versus neoplasm. MRI with and without contrast recommended. -MRI unable to be ordered due to patient having history of shrapnel in face and chest. Creatinine continues to improve now. Creatinine peaked at 3.4 Nephrology following when no further bleeding without CBI times 24 hour will remove Mondragon and to void trial Continues to have intermittent bleeding. Urologist suggest to remove the Mondragon catheter may be traumatic Creatinine continues to improve down to his baseline level now. (2) Gross hematuria: Code(s): R31.0 - Gross hematuria Status: Acute Assessment and Plan: -Patient does has history of prostate cancer with a prostatectomy. Patient presented to the ER concerned of gross hematuria. -UA: RBC >75, WBC 4-6, color red -urology consulted -monitor H&H -pt hx of prostate cancer -patient underwent ultrasound of the bladder per urology -retroperitoneum ultrasound impression: Bilateral renal status without hydronephrosis, masslike filling defect along the inferior wall to the bladder with differential including clot, nodular prostatomegaly or primary bladder cancer. -cystoscopy evacuation of clots preformed 06/18/22 -600-700cc of clot evacuated -CBI started and Mondragon replaced in surgery 06/19 -CT abdomen pelvis: 14 mm hemorrhagic cyst versus malignancy -nephrology consulted and following patient. associated acute blood loss anemia requiring transfusion this admission on 06/19/2022 continues to have intermittent hematuria with clot. Could be traumatic however unsure Urology following plans for CBI to continue Ongoing intermittent hematuria persistent plan for clot evacuation in a.m. (3) Urinary retention: Code(s): R33.9 - Retention of urine, unspecified Status: Acute Assessment and Plan: Mondragon catheter insertion with CBI Urology following (4) Hypokalemia: Code(s): E87.6 - Hypokalemia Status: Acute Assessment and Plan: replace monitor (5) Hyponatremia: Code(s): E87.1 - Hypo-osmolality and hyponatremia Status: Acute Assessment and Plan: -Pt states decreased oral intake over the past couple days prior to ER arrival -Sodium at admission was 125 -likely due to dehydration -fluids discontinued -urine sodium and creatinine and urine osmolality pending. (6) Elevated troponin: Code(s): R77.8 - Other specified abnormalities of plasma proteins Status: Acute Assessment and Plan: -Mildly elevated at 0.041 -Pt without chest pain -No evidence of EKG changes from previous one on 05/15/2022 -Echo: No significant valve dysfunction, normal left ventricular size and systolic function with concentric LVH -Telemetry (7) Community acquired pneumonia: Code(s): J18.9 - Pneumonia, unspecified organism Status: Acute Assessment and Plan: -CXR impression: persistently small lung volumes, interstitial opacities in left lower lung zone, consistent with atelectasis vs chronic interstitial lung disease -Ceftriaxone 1 gram IV q24H, Azithromycin 500mg IV q24H and Vancomycin due to coverage for hospital acquired pneumonia -Sputum culture order -blood culture no growth to date -spirometry -Monitor vital signs, I&Os, neuro status and patient is a fall risk -Follow WBC, serum electrolytes, temperature curves and cultures -Oxygen via NC; wean as tolerated. Keep SpO2 greater t
--- NOTE | 2022-06-24 12:10 | ECG_ITS ---
Measurements Intervals [place] Rate: 65 P: -26 MA: 163 QRS: -39 QRSD: 108 T: -1 QT: 393 QTc: 411 Interpretive Statements SINUS RHYTHM MARKED LEFT AXIS DEVIATION [QRS AXIS < -30] VOLTAGE CRITERIA FOR LVH [MEETS CRITERIA IN ONE OF: R(aVL), S(V1), R(V5), R(V5/V6)+S(V1)] POOR R-WAVE PROGRESSION, CANNOT RULE OUT OLD ANTERIOR SD COMPARED TO ECG 06/17/2022 12:38:33 NO SIGNIFICANT CHANGE Electronically Signed On 06-24-2022 14:50:29 [employer]. [employer] by Rekha Qureshi M.D.
[2022-06-24 15:20] LABS: Mycoplasma IgM Antibody Titer 28 U/mL (<770)
--- NOTE | 2022-06-24 22:13 | PCRCNOTE ---
window of time for administration has passed. see next available administration.
[2022-06-25] VITALS (13 sets, daily range): BP systolic 126–154; BP diastolic 51–64; PULSE 64–86; RESP 18–20; TEMP 35.7–36.6; O2SAT 95–100
[2022-06-25] MEDS: ALBUTEROL SULFATE NEB 2.5 MG/3 ML INH INHALATION ×2 (02:03→12:42)
[2022-06-25] MEDS: IPRATROPIUM BR 0.02% INH SOLN 0.5 MG/2.5 ML VIAL INHALATION ×2 (02:04→12:42)
[2022-06-25 05:23] LABS: Alanine Aminotransferase 25 U/L (6-50); Albumin Level 3.6 g/dL (3.5-5.1); Alkaline Phosphatase 90 U/L (38-126); Anion Gap 3 mmol/L (8-16); Aspartate Amino Transferase 32 U/L (17-59); Bilirubin,Total 0.3 mg/dL (0.2-1.3); Blood Urea Nitrogen 31 mg/dL (9-20); Carbon Dioxide 32 mmol/L (22-30); Chloride 99 mmol/L (98-107); Estimated CRCL calculation 47 ml/min; Estimated Glomerular Filt Rate 42; Glucose 105 mg/dL (65-110); Magnesium 1.6 mg/dL (1.6-2.3); Potassium 3.6 mmol/L (3.4-5.0); Sodium 134 mmol/L (137-145)
[2022-06-25 05:25] LABS: Hematocrit 24.6 % (42.0-52.0); Hemoglobin 8.1 g/dL (14.0-18.0); Mean Corpuscular HGB Conc 32.9 g/dl (32-36); Mean Corpuscular Hemoglobin 33.2 pg (26-34); Mean Corpuscular Volume 100.8 fl (80-100); Mean Platelet Volume 10.7 fl (7.4-10.4); Platelet Count Result 302 k/mm3 (150-375); Red Blood Count 2.44 M/mm3 (4.6-6.20); Red Cell Distribution Width 15.7 % (11.5-14.5); White Blood Count 9.3 K/mm3 (4.5-10.0)
[2022-06-25 05:51] LABS: Anisocytosis 1+ (NORMAL); Band Neutrophils Percent 4 % (0-6); Basophils Absolute Manual 0.09 K/mm3 (0.0-0.1); Basophils Percent Manual 1 % (0-1); Eosinophils Absolute Manual 0.27 K/mm3 (0.02-0.5); Eosinophils Percent Manual 3 % (0-4); Hypochromasia 1+ (NORMAL); Lymphocytes Absolute Manual 1.02 K/mm3 (1.1-4.5); Metamyelocytes Percent 5 %; Monocytes Absolute Manual 0.27 K/mm3 (0.1-0.90); Monocytes Percent Manual 3 % (3-9); Neutrophils Absolute Manual 7.16 K/mm3 (1.3-6.7); Neutrophils Percent Manual 73 % (46-73); Platelet Estimate Adequate (Adequate); Schistocytes None Seen (NORMAL); Total Cells Counted 100
--- NOTE | 2022-06-25 08:26 | WPDUROPN2 ---
Progress Note: A&P Assessment and Plan (1) Gross hematuria: Code(s): R31.0 - Gross hematuria Status: Acute Assessment and Plan: urine remains clear as long CBI is on slow. Repeat ultrasound this morning of the bladder to look for clots. May need another cysto fulguration tomorrow? may and may not be able to solve the issue if he has diffuse mucosal bleeding etiology is likely radiation cystitis. (2) History of prostate cancer: Code(s): Z85.46 - Personal history of malignant neoplasm of prostate Status: Acute Assessment and Plan: Status post prostatectomy and radiation (3) History of prostatectomy: Code(s): Z90.79 - Acquired absence of other genital organ(s) Status: Acute (4) Renal mass: Code(s): N28.89 - Other specified disorders of kidney and ureter Status: Acute Assessment and Plan: probably hemorrhagic cyst. It is small and unlikely to be the source of bleeding. Radiology recommended MRI with without contrast. Please obtain Subjective Subjective Date/Time Seen: 06/25/22 08:26 Clear as long as we keep the CBI on slow. Whenever CBI stops he has issues with clotting a catheter. He has history of prostate cancer and radiation therapy. He is status post radical prostatectomy as well Exam Narrative: no acute distress Mondragon catheter in place. Urine is clear as long as CBI slow Objective Data Vital Signs Vital Signs: Vital Signs - 24 hr 06/24/22 08:28 06/24/22 09:55 06/24/22 10:00 Temperature 97.9 F Pulse Rate 78 64 67 Respiratory Rate 18 16 Blood Pressure 122/51 L Pulse Oximetry 98 06/24/22 12:00 06/24/22 14:38 06/24/22 14:00 Temperature 98.8 F Pulse Rate 64 67 71 Respiratory Rate 18 18 Blood Pressure 125/54 L Pulse Oximetry 100 06/24/22 16:00 06/24/22 18:00 06/24/22 20:13 Temperature 97.8 F Pulse Rate 67 71 72 Respiratory Rate 18 Blood Pressure 149/60 H Pulse Oximetry 97 06/24/22 20:00 06/24/22 22:00 06/25/22 00:00 Temperature 98.1 F Pulse Rate 74 72 75 Respiratory Rate 20 Blood Pressure 141/62 H Pulse Oximetry 98 06/25/22 02:04 06/25/22 02:19 06/25/22 02:00 Temperature 97.9 F Pulse Rate 72 69 78 Respiratory Rate 18 18 20 Blood Pressure 142/57 H Pulse Oximetry 98 06/25/22 04:00 06/25/22 06:00 Temperature 97.5 F L Pulse Rate 69 75 Respiratory Rate 18 Blood Pressure 154/64 H Pulse Oximetry 95 Intake/Output Intake/Output: Intake & Output 06/22/22 06/23/22 06/24/22 06/25/22 23:59 23:59 23:59 23:59 Intake Total 2084 3020 1920 Output Total 1900 1999 1250 775 Balance 185 1020 946 -492 Meds/Results Medications: Active Medications Generic Name Dose Route Start Last Admin Trade Name Freq PRN Reason Stop Dose Admin Acetaminophen 975 mg 06/17/22 23:24 06/20/22 11:25 Acetaminophen 325 Mg Tablet PO 975 mg Q8H PRN Administration Mild Pain (1-3) Or Fever Albuterol 2.5 mg 06/18/22 02:00 06/25/22 02:03 Albuterol Sulfate Neb 2.5 Mg/3 Ml Inh INHALATION 2.5 mg Q6HRT JAYRO Administration Amlodipine Besylate 10 mg 06/17/22 23:35 06/24/22 20:12 Amlodipine Besylate 5 Mg Tablet PO 10 mg Q12HR JAYRO Administration Buspirone HCl 15 mg 06/17/22 23:35 06/24/22 20:12 Buspirone Hcl 5 Mg Tablet PO 15 mg Q12HR JAYRO Administration Carvedilol 25 mg 06/17/22 23:35 06/24/22 20:13 Carvedilol 25 Mg Tablet PO 25 mg Q12HR JAYRO Administration Docusate Sodium 100 mg 06/17/22 23:35 06/24/22 20:12 Docusate Sodium 100 Mg Capsule PO 100 mg Q12HR JAYRO Administration Duloxetine HCl 60 mg 06/18/22 09:00 06/24/22 08:29 Duloxetine Hcl 60 Mg Capsule.Dr PO 60 mg QAM JAYRO Administration Folic Acid 1 mg 06/18/22 09:00 06/24/22 08:29 Folic Acid 1 Mg Tablet PO 1 mg DAILY JAYRO Administration Guaifenesin 600 mg 06/17/22 21:00 12/18/22 20:12 Guaifenesin 12 Hr 600 Mg Tabcr PO 600 mg Q
[2022-06-25] MEDS: cefTRIAXone 2 GM in SODIUM CHLORIDE 0.9% IV 100 ML 200 ML IVPB (08:58)
[2022-06-25] MEDS: CHOLECALCIFEROL 1,000 UNITS TABLET 1000 UNITS PO (08:59)
[2022-06-25] MEDS: busPIRone HCL 5 MG TABLET 15 MG PO ×2 (08:59→20:50)
[2022-06-25] MEDS: carvediloL 25 MG TABLET PO ×2 (08:59→20:51)
[2022-06-25] MEDS: amLODIPine BESYLATE 5 MG TABLET 10 MG PO ×2 (08:59→20:51)
[2022-06-25] MEDS: guaiFENesin 12 HR 600 MG TABCR PO ×2 (08:59→20:51)
[2022-06-25] MEDS: FOLIC ACID 1 MG TABLET PO (08:59)
[2022-06-25] MEDS: DOCUSATE SODIUM 100 MG CAPSULE PO ×2 (08:59→20:51)
[2022-06-25] MEDS: PANTOPRAZOLE SODIUM IV 40 MG VIAL IV PUSH ×2 (09:00→20:52)
[2022-06-25] MEDS: DULoxetine HCL 60 MG CAPSULE.DR PO (09:00)
[2022-06-25] MEDS: NEOMYCIN/POLYMYXIN/BACITRACIN OINTMENT 15 GM TUBE 1 APPLIC TOPICAL (09:05)
--- NOTE | 2022-06-25 12:15 | PCOTNOTE ---
Attempted to see Patient at this time. Patient is currently eating lunch and requested services come back at a later time.
--- NOTE | 2022-06-25 12:40 | PCRCNOTE ---
Window of time for administration has passed. See next scheduled administration.
--- NOTE | 2022-06-25 15:35 | PCOTNOTE ---
Patient with PT when attempted to see for OT this date in PM. Will continue plan of care for OT.
--- NOTE | 2022-06-25 16:00 | P.PNIM_ITS ---
Progress Note: A&P Assessment and Plan (1) Acute kidney injury superimposed on chronic kidney disease: Code(s): N17.9 - Acute kidney failure, unspecified; N18.9 - Chronic kidney disease, unspecified Status: Acute Assessment and Plan: -BUN and Cr 41 and 2.6 on arrival Last discharge creatinine was 2. 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 Small with of hematoma in the bladder. 14 mm left kidney mass; Hemorrhagic cyst versus neoplasm. MRI with and without contrast recommended. -MRI unable to be ordered due to patient having history of shrapnel in face and chest. Creatinine continues to improve now. Creatinine peaked at 3.4 Nephrology following when no further bleeding without CBI times 24 hour will remove Mondragon and to void trial Continues to have intermittent bleeding. Urologist suggest to remove the Mondragon catheter may be traumatic Creatinine continues to improve down to his baseline level now. (2) Gross hematuria: Code(s): R31.0 - Gross hematuria Status: Acute Assessment and Plan: -Patient does has history of prostate cancer with a prostatectomy. Patient presented to the ER concerned of gross hematuria. -UA: RBC >75, WBC 4-6, color red -urology consulted -monitor H&H -pt hx of prostate cancer -patient underwent ultrasound of the bladder per urology -retroperitoneum ultrasound impression: Bilateral renal status without hydronephrosis, masslike filling defect along the inferior wall to the bladder with differential including clot, nodular prostatomegaly or primary bladder cancer. -cystoscopy evacuation of clots preformed 06/18/22 -600-700cc of clot evacuated -CBI started and Mondragon replaced in surgery 06/19 -CT abdomen pelvis: 14 mm hemorrhagic cyst versus malignancy -nephrology consulted and following patient. associated acute blood loss anemia requiring transfusion this admission on 06/19/2022 continues to have intermittent hematuria with clot. Could be traumatic however unsure Urology following plans for CBI to continue Ongoing intermittent hematuria persistent plan Renal ultrasound reviewed Plan for cystoscopy and possible fulguration In a.m.. (3) Urinary retention: Code(s): R33.9 - Retention of urine, unspecified Status: Acute Assessment and Plan: Mondragon catheter insertion with CBI Urology following (4) Hypokalemia: Code(s): E87.6 - Hypokalemia Status: Acute Assessment and Plan: replace monitor (5) Hyponatremia: Code(s): E87.1 - Hypo-osmolality and hyponatremia Status: Acute Assessment and Plan: -Pt states decreased oral intake over the past couple days prior to ER arrival -Sodium at admission was 125 -likely due to dehydration -fluids discontinued -urine sodium and creatinine and urine osmolality pending. (6) Elevated troponin: Code(s): R77.8 - Other specified abnormalities of plasma proteins Status: Acute Assessment and Plan: -Mildly elevated at 0.041 -Pt without chest pain -No evidence of EKG changes from previous one on 05/15/2022 -Echo: No significant valve dysfunction, normal left ventricular size and systolic function with concentric LVH -Telemetry (7) Community acquired pneumonia: Code(s): J18.9 - Pneumonia, unspecified organism Status: Acute Assessment and Plan: -CXR impression: persistently small lung volumes, interstitial opac
[2022-06-26] VITALS (20 sets, daily range): BP systolic 110–152; BP diastolic 51–82; PULSE 58–103; RESP 16–20; TEMP 36.2–37; O2SAT 94–100
--- NOTE | 2022-06-26 03:45 | PCRCNOTE ---
Patient refused both 1999 and 0200 updraft treatments due to wanting sleep. Treatments to resume at 0800.
[2022-06-26 04:57] LABS: Hematocrit 23.6 % (42.0-52.0); Hemoglobin 7.7 g/dL (14.0-18.0); Mean Corpuscular HGB Conc 32.6 g/dl (32-36); Mean Corpuscular Hemoglobin 32.9 pg (26-34); Mean Corpuscular Volume 100.9 fl (80-100); Mean Platelet Volume 10.5 fl (7.4-10.4); Platelet Count Result 298 k/mm3 (150-375); Red Blood Count 2.34 M/mm3 (4.6-6.20); Red Cell Distribution Width 15.8 % (11.5-14.5); White Blood Count 7.8 K/mm3 (4.5-10.0)
[2022-06-26 05:07] LABS: Alanine Aminotransferase 23 U/L (6-50); Albumin Level 3.4 g/dL (3.5-5.1); Alkaline Phosphatase 89 U/L (38-126); Anion Gap 5 mmol/L (8-16); Aspartate Amino Transferase 28 U/L (17-59); Bilirubin,Total 0.3 mg/dL (0.2-1.3); Blood Urea Nitrogen 27 mg/dL (9-20); Carbon Dioxide 31 mmol/L (22-30); Chloride 103 mmol/L (98-107); Estimated CRCL calculation 45 ml/min; Estimated Glomerular Filt Rate 39; Glucose 106 mg/dL (65-110); Magnesium 1.6 mg/dL (1.6-2.3); Potassium 3.7 mmol/L (3.4-5.0); Sodium 139 mmol/L (137-145)
[2022-06-26 05:33] LABS: Band Neutrophils Percent 2 % (0-6); Eosinophils Absolute Manual 0.15 K/mm3 (0.02-0.5); Eosinophils Percent Manual 2 % (0-4); Lymphocytes Absolute Manual 1.09 K/mm3 (1.1-4.5); Metamyelocytes Percent 6 %; Monocytes Absolute Manual 0.15 K/mm3 (0.1-0.90); Monocytes Percent Manual 2 % (3-9); Myelocytes Percent 4 %; Neutrophils Absolute Manual 5.61 K/mm3 (1.3-6.7); Neutrophils Percent Manual 70 % (46-73); Total Cells Counted 100
[2022-06-26 05:34] LABS: Atypical Lymphocytes Present; Hypochromasia 1+ (NORMAL); Microcytosis 1+ (NORMAL); Schistocytes None Seen (NORMAL); Target Cells 1+ (NORMAL)
[2022-06-26] MEDS: NEOMYCIN/POLYMYXIN/BACITRACIN OINTMENT 15 GM TUBE 1 APPLIC TOPICAL (08:13)
[2022-06-26] MEDS: cefTRIAXone 2 GM in SODIUM CHLORIDE 0.9% IV 100 ML 200 ML IVPB (08:13)
[2022-06-26] MEDS: PANTOPRAZOLE SODIUM IV 40 MG VIAL IV PUSH ×2 (08:14→20:31)
--- NOTE | 2022-06-26 09:03 | WPDHPUPDATE1 ---
History and Physical Update Update Date/Time: 06/26/22 09:03 History and Physical has been reviewed, including an updated exam of the patient. There are NO changes in the patient's condition. Risks, benefits, and alternatives have been discussed and questions answered. Patient agrees to proceed with procedure. Proceed with cysto, clot evacuation, possible fulguration
[2022-06-26] MEDS: LIDOCAINE HCL 2% GEL UROJET 10 ML PKG MUCOUS MEM (09:42)
--- NOTE | 2022-06-26 09:43 | W.PM.PROC2 ---
Procedure Note - Detailed Date of Procedure 06/26/22 Pre-op Diagnosis Gross hematuria with clots Post-op Diagnosis Same Procedure Performed Cystoscopy, clot evacuation, fulguration of bladder neck, Mondragon catheter placement [address] Surgeon Harvey Coronado MD Anesthesia General Description of Procedure Patient is taken the operative suite correctly identified. Once anesthesia was obtained was placed in dorsal lithotomy position and prepped and draped usual sterile fashion. Nineteen Bel[place]ian scope inserted in the bladder. The prostate is absent. Patient had some clot at the bladder neck area we evacuated this. Reinspection the bladder reveals just diffuse erythema consistent with radiation cystitis. He has a couple of areas were blood vessels were oozing at the bladder neck area. We fulgurated these using a Bugbee electrode. 2% viscous lidocaine was inserted urethra. Eighteen [place] Mondragon was placed and connected to CBI. He is taken recovery stable condition. Hopefully will be able to get the catheter out by morning time. Estimated Blood Loss 0 Urine Output 375 Drains Yes Packing No Pathology None sent Complications No immediate complications Condition Stable Disposition PACU
[2022-06-26] MEDS: LACTATED RINGERS 1,000 ML 30 ML IV CONT (09:55)
--- NOTE | 2022-06-26 10:33 | PCRCNOTE ---
Window of time for administration has passed. See next scheduled administration.
[2022-06-26] MEDS: CHOLECALCIFEROL 1,000 UNITS TABLET 1000 UNITS PO (11:24)
[2022-06-26] MEDS: DULoxetine HCL 60 MG CAPSULE.DR PO (11:24)
[2022-06-26] MEDS: carvediloL 25 MG TABLET PO ×2 (11:24→20:32)
[2022-06-26] MEDS: DOCUSATE SODIUM 100 MG CAPSULE PO ×2 (11:24→20:32)
[2022-06-26] MEDS: amLODIPine BESYLATE 5 MG TABLET 10 MG PO ×2 (11:24→20:33)
[2022-06-26] MEDS: guaiFENesin 12 HR 600 MG TABCR PO ×2 (11:24→20:31)
[2022-06-26] MEDS: busPIRone HCL 5 MG TABLET 15 MG PO ×2 (11:24→20:31)
[2022-06-26] MEDS: FOLIC ACID 1 MG TABLET PO (11:25)
[2022-06-26] MEDS: IPRATROPIUM BR 0.02% INH SOLN 0.5 MG/2.5 ML VIAL INHALATION ×2 (12:09→20:35)
[2022-06-26] MEDS: ALBUTEROL SULFATE NEB 2.5 MG/3 ML INH INHALATION ×2 (12:09→20:35)
--- NOTE | 2022-06-26 16:18 | PM.IMPN ---
Progress Note: A&P Assessment and Plan (1) Acute kidney injury superimposed on chronic kidney disease: Code(s): N17.9 - Acute kidney failure, unspecified; N18.9 - Chronic kidney disease, unspecified Status: Acute Assessment and Plan: -BUN and Cr 41 and 2.6 on arrival Last discharge creatinine was 2. 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 Small with of hematoma in the bladder. 14 mm left kidney mass; Hemorrhagic cyst versus neoplasm. MRI with and without contrast recommended. -MRI unable to be ordered due to patient having history of shrapnel in face and chest. Creatinine continues to improve now. Creatinine peaked at 3.4 Nephrology following when no further bleeding without CBI times 24 hour will remove Mondragon and to void trial Continues to have intermittent bleeding. Urologist suggest to remove the Mondragon catheter may be traumatic Creatinine continues to improve down to his baseline level now. (2) Gross hematuria: Code(s): R31.0 - Gross hematuria Status: Acute Assessment and Plan: -Patient does has history of prostate cancer with a prostatectomy. Patient presented to the ER concerned of gross hematuria. -UA: RBC >75, WBC 4-6, color red -urology consulted -monitor H&H -pt hx of prostate cancer -patient underwent ultrasound of the bladder per urology -retroperitoneum ultrasound impression: Bilateral renal status without hydronephrosis, masslike filling defect along the inferior wall to the bladder with differential including clot, nodular prostatomegaly or primary bladder cancer. -cystoscopy evacuation of clots preformed 06/18/22 -600-700cc of clot evacuated -CBI started and Mondragon replaced in surgery 06/19 -CT abdomen pelvis: 14 mm hemorrhagic cyst versus malignancy -nephrology consulted and following patient. associated acute blood loss anemia requiring transfusion this admission on 06/19/2022 continues to have intermittent hematuria with clot. Could be traumatic however unsure Urology following plans for CBI to continue Ongoing intermittent hematuria persistent plan Renal ultrasound reviewed Status post cystoscopy repeat on 06/26/2022: Clot evacuation fulguration of bladder neck (3) Urinary retention: Code(s): R33.9 - Retention of urine, unspecified Status: Acute Assessment and Plan: Mondragon catheter insertion with CBI Urology following (4) Hypokalemia: Code(s): E87.6 - Hypokalemia Status: Acute Assessment and Plan: replace monitor (5) Hyponatremia: Code(s): E87.1 - Hypo-osmolality and hyponatremia Status: Acute Assessment and Plan: -Pt states decreased oral intake over the past couple days prior to ER arrival -Sodium at admission was 125 -likely due to dehydration -fluids discontinued -urine sodium and creatinine and urine osmolality pending. (6) Elevated troponin: Code(s): R77.8 - Other specified abnormalities of plasma proteins Status: Acute Assessment and Plan: -Mildly elevated at 0.041 -Pt without chest pain -No evidence of EKG changes from previous one on 05/15/2022 -Echo: No significant valve dysfunction, normal left ventricular size and systolic function with concentric LVH -Telemetry (7) Community acquired pneumonia: Code(s): J18.9 - Pneumonia, unspecified organism Status: Acute Assessment and Plan: -CXR impression: persistently small lung volumes, interstitial opacities in left lower lung zone, consistent with atelectasis vs chronic interstitial lung disease -Ceftriaxone 1 gram IV q24H, Azithromycin 500mg IV q24H and Vancomycin due to coverage for hospital acquired pneumonia -Sputum culture order -blood culture no growth to date -spirometry -Monitor vital signs, I&Os, neuro status and patient is a fall risk -Follow WBC, serum electro
[2022-06-26] MEDS: MICONAZOLE NITRATE 2% CREAM 30 GM TUBE 1 APPLIC TOPICAL ×2 (17:40→20:33)
[2022-06-27] VITALS (19 sets, daily range): BP systolic 117–148; BP diastolic 46–88; PULSE 63–89; RESP 14–20; TEMP 36.1–37.1; O2SAT 92–100
--- NOTE | 2022-06-27 04:29 | PCRCNOTE ---
Patient wanted to keep sleeping throughout the night, therefore refusing his 0200 treatment. Treatments to resume at 0800.
[2022-06-27 04:39] LABS: Basophils Percent Auto 0.3 % (0.2-1.2); Eosinophils Percent Auto 0.1 % (0-4.4); Hematocrit 21.8 % (42.0-52.0); Immature Granulocyte Absolute 0.27 K/mm3 (0.00-0.031); Immature Granulocyte Percent A 2.4 % (0-0.5); Lymphocytes Absolute Auto 1.01 K/mm3 (0.9-3.2); Lymphocytes Percent Auto 9.1 % (18.3-44.2); Mean Corpuscular HGB Conc 32.6 g/dl (32-36); Mean Corpuscular Hemoglobin 32.6 pg (26-34); Mean Platelet Volume 10.6 fl (7.4-10.4); Monocytes Absolute Auto 0.9 K/mm3 (0.1-0.6); Monocytes Percent Auto 8.2 % (2.6-8.5); Neutrophils Absolute Auto 8.9 K/mm3 (1.3-6.7); Neutrophils Percent Auto 79.9 % (45.5-73.1); Platelet Count Result 340 k/mm3 (150-375); Red Blood Count 2.18 M/mm3 (4.6-6.20); Red Cell Distribution Width 15.7 % (11.5-14.5); White Blood Count 11.1 K/mm3 (4.5-10.0)
[2022-06-27 04:47] LABS: Hemoglobin 7.1 g/dL (14.0-18.0)
[2022-06-27 04:50] LABS: Alanine Aminotransferase 23 U/L (6-50); Albumin Level 3.4 g/dL (3.5-5.1); Alkaline Phosphatase 83 U/L (38-126); Anion Gap 5 mmol/L (8-16); Aspartate Amino Transferase 30 U/L (17-59); Bilirubin,Total 0.2 mg/dL (0.2-1.3); Blood Urea Nitrogen 31 mg/dL (9-20); Calcium 8.7 mg/dL (8.4-10.2); Carbon Dioxide 29 mmol/L (22-30); Chloride 100 mmol/L (98-107); Estimated CRCL calculation 44 ml/min; Estimated Glomerular Filt Rate 39; Glucose 148 mg/dL (65-110); Magnesium 1.6 mg/dL (1.6-2.3); Sodium 134 mmol/L (137-145)
[2022-06-27] MEDS: ALBUTEROL SULFATE NEB 2.5 MG/3 ML INH INHALATION ×3 (07:46→20:47)
[2022-06-27] MEDS: IPRATROPIUM BR 0.02% INH SOLN 0.5 MG/2.5 ML VIAL INHALATION ×3 (07:46→20:47)
[2022-06-27] MEDS: busPIRone HCL 5 MG TABLET 15 MG PO ×2 (07:53→21:17)
[2022-06-27] MEDS: amLODIPine BESYLATE 5 MG TABLET 10 MG PO ×2 (07:53→21:17)
[2022-06-27] MEDS: CHOLECALCIFEROL 1,000 UNITS TABLET 1000 UNITS PO (07:53)
[2022-06-27] MEDS: DOCUSATE SODIUM 100 MG CAPSULE PO ×2 (07:53→21:17)
[2022-06-27] MEDS: guaiFENesin 12 HR 600 MG TABCR PO ×2 (07:54→21:17)
[2022-06-27] MEDS: DULoxetine HCL 60 MG CAPSULE.DR PO (07:54)
[2022-06-27] MEDS: NEOMYCIN/POLYMYXIN/BACITRACIN OINTMENT 15 GM TUBE 1 APPLIC TOPICAL (07:54)
[2022-06-27] MEDS: FOLIC ACID 1 MG TABLET PO (07:54)
[2022-06-27] MEDS: carvediloL 25 MG TABLET PO ×2 (07:54→21:17)
[2022-06-27] MEDS: MICONAZOLE NITRATE 2% CREAM 30 GM TUBE 1 APPLIC TOPICAL ×2 (07:55→21:19)
--- NOTE | 2022-06-27 08:44 | PM.IMPN ---
Progress Note: A&P Assessment and Plan (1) Acute kidney injury superimposed on chronic kidney disease: Code(s): N17.9 - Acute kidney failure, unspecified; N18.9 - Chronic kidney disease, unspecified Status: Acute Assessment and Plan: Nephrology no longer following, they have signed off Creatinine stable at 1.7 (2) Gross hematuria: Code(s): R31.0 - Gross hematuria Status: Acute Assessment and Plan: Status post cystoscopy repeat on 06/26/2022: Clot evacuation fulguration of bladder neck Appreciate urology consultation, plan is to poor Mondragon tomorrow and evaluate symptoms after that (3) Urinary retention: Code(s): R33.9 - Retention of urine, unspecified Status: Acute Assessment and Plan: Mondragon catheter insertion with [facility] Urology following (4) Hypokalemia: Code(s): E87.6 - Hypokalemia Status: Acute Assessment and Plan: replace monitor (5) Hyponatremia: Code(s): E87.1 - Hypo-osmolality and hyponatremia Status: Acute Assessment and Plan: Stable, continue to monitor (6) Community acquired pneumonia: Code(s): J18.9 - Pneumonia, unspecified organism Status: Acute Assessment and Plan: Completed 5 day course of azithromycin, previously on vancomycin which is now discontinued, day 7 of Rocephin tomorrow then discontinue (7) Macrocytic anemia: Code(s): D53.9 - Nutritional anemia, unspecified Status: Chronic Assessment and Plan: Received transfusion of 1 unit packed red blood cells this morning, repeat hemoglobin pending, monitor (8) Hypertension: Code(s): I10 - Essential (primary) hypertension Status: Chronic Assessment and Plan: Continue home medication BP stable (9) Psoriatic arthritis: Code(s): L40.50 - Arthropathic psoriasis, unspecified Status: Chronic Assessment and Plan: hold sulfasalazine (10) Bacteremia: Code(s): R78.81 - Bacteremia Status: Acute Assessment and Plan: Recent left hip fracture 05/15/22 status post left intramedullary trochanteric nailing Blood culture coming back positive for E coli collected on 06/17/2022. Repeat blood cultures been negative to date from 06/21/2022. Will reinitiate antibiotics because of this bacteremia present on arrival. Continue on ceftriaxone 2 g daily sensitivity back with sensitive to ceftriaxone. Is also sensitive to levofloxacin so potentially will be able to change to oral levofloxacin to complete the course, however QTC was 426 Plan DVT prophylaxis with SCDs GI prophylaxis not indicated Code status full code in Subjective Date/time seen: 06/27/22 08:44 Interval history: No overnight events noted. No chest pain or shortness of breath. No nausea, vomiting or diarrhea. No fevers or chills. Patient is asking if he can go home. He continues to have hematuria from his Mondragon catheter. CBI is continued. Review of Systems Review of Systems: 12 point review of systems was assessed and was negative except as noted in the HPI Exam Narrative: General: No acute distress, alert and oriented per baseline HEENT: Atraumatic, normocephalic, mucous membranes moist CV: Regular rate and rhythm, S1, S2 Lungs: Clear to auscultation bilaterally, no rales or crackles noted, no wheezes, good air entry Abdomen: Soft, nontender, nondistended Extremities: Normal to inspection Skin: No rashes noted, no lesions or wounds seen Psych: Euthymic, normal affect : CBI going, light pink urine noted in bag Objective Data Vital Signs Vital Signs: Vital Signs - 24 hr 06/26/22 08:57 06/26/22 09:55 06/26/22 10:10 Temperature 98.6 F Pulse Rate 88 58 L 67 Respiratory Rate 20 20 16 Blood Pressure 145/64 H 110/59 L 140/72 Pulse Oximetry 98 100 96 Oxygen Delivery Room Air Simple Face Mask Room Air Oxygen Flow Rate 8 06/26/22 10:25 06/26/22
[2022-06-27] MEDS: cefTRIAXone 2 GM in SODIUM CHLORIDE 0.9% IV 100 ML 200 ML IVPB (11:41)
[2022-06-27] MEDS: PANTOPRAZOLE SODIUM IV 40 MG VIAL IV PUSH ×2 (11:43→21:18)
--- NOTE | 2022-06-27 16:07 | WPDUROPN2 ---
Progress Note: A&P Assessment and Plan (1) Bacteremia: Code(s): R78.81 - Bacteremia Status: Acute (2) Gross hematuria: Code(s): R31.0 - Gross hematuria Status: Acute Assessment and Plan: Not resolving after cauterization of bladder on CBI. After discussion with Dr. Coronado, catheter may likely be causing more irritation and bleeding. We will take catheter out in the morning and assess if the bleeding persists or improves without gregory in place. Subjective Subjective Date/Time Seen: 06/27/22 16:07 POD #1 Cystoscopy, clot evacuation, fulguration of bladder neck, Gregory catheter placement [address] Patient's urine remains bloody/pink on CBI He is doing well, no pain, tolerating diet. Review of Systems Cardiovascular: Cardiovascular: Denies chest pain Respiratory: Respiratory: Reports no additional respiratory complaints Gastrointestinal: Gastrointestinal: Denies abdominal pain, Denies nausea and Denies vomiting Genitourinary: Genitourinary: Denies hematuria, Denies dysuria, Denies flank pain, Denies urinary frequency, Denies urinary hesitancy and Denies urinary urgency Exam Resp: Effort & Inspection: normal respiratory effort Cardio: Rate: regular rate GI: GI Palp: Yes Soft to palpation and No Tenderness to palpation present (GI) : General: Yes no CVA tenderness Urinary Catheter: Urinary Catheter: patent and draining, urine clear, urine pink and urine red Extrem: Right lower extremity: no edema Left lower extremity: no edema Objective Data Vital Signs Vital Signs: Vital Signs - 24 hr 06/26/22 20:32 06/26/22 20:35 06/26/22 20:35 Temperature Pulse Rate 89 86 Respiratory Rate 18 Blood Pressure Pulse Oximetry 94 Oxygen Delivery Room Air 06/26/22 21:35 06/26/22 20:00 06/26/22 20:30 Temperature 97.8 F Pulse Rate 92 86 92 Respiratory Rate 18 18 Blood Pressure 129/54 L Pulse Oximetry 95 95 Oxygen Delivery Room Air 06/27/22 00:00 06/27/22 05:26 06/27/22 04:00 Temperature 98.8 F Pulse Rate 77 88 89 Respiratory Rate 18 Blood Pressure 129/59 L Pulse Oximetry 98 Oxygen Delivery 06/27/22 07:44 06/27/22 08:00 06/27/22 07:50 Temperature 97.7 F 97.4 F L Pulse Rate 74 74 72 Respiratory Rate 20 20 16 Blood Pressure 148/62 H 142/56 H Pulse Oximetry 96 100 Oxygen Delivery 06/27/22 08:27 06/27/22 07:50 06/27/22 10:30 Temperature 97 F L Pulse Rate 78 78 64 Respiratory Rate 20 18 Blood Pressure 127/46 L Pulse Oximetry 92 95 Oxygen Delivery Room Air 06/27/22 09:00 06/27/22 10:00 06/27/22 13:20 Temperature 97.5 F L 97.4 F L Pulse Rate 77 63 66 Respiratory Rate 18 18 16 Blood Pressure 123/88 117/60 Pulse Oximetry 97 97 Oxygen Delivery 06/27/22 13:34 06/27/22 08:00 06/27/22 12:00 Temperature Pulse Rate 69 65 72 Respiratory Rate 16 Blood Pressure Pulse Oximetry Oxygen Delivery 06/27/22 14:00 Temperature 97.4 F L Pulse Rate 70 Respiratory Rate 18 Blood Pressure 135/60 Pulse Oximetry 96 Oxygen Delivery Intake/Output Intake/Output: Intake & Output 06/24/22 06/25/22 06/26/22 06/27/22 23:59 23:59 23:59 23:59 Intake Total 1920 1440 1980 1080 Output Total 1250 1975 4058 5409 Balance 421 -[phone] -0400 Meds/Results Medications: Active Medications Generic Name Dose Route Start Last Admin Trade Name Maren PRN Reason Stop Dose Admin Acetaminophen 975 mg 06/17/22 23:24 06/20/22 11:25 Acetaminophen 325 Mg Tablet PO 975 mg Q8H PRN Administration Mild Pain (1-3) Or Fever Albuterol 2.5 mg 06/18/22 02:00 06/27/22 13:16 Albuterol Sulfate Neb 2.5 Mg/3 Ml Inh INHALATION 2.5 mg Q6HRT JAYRO Administration Amlodipine Besylate 10 mg 06/17/22 23:35 06/27/22 07:53 Amlodipine Besylate 5 Mg Tablet PO 10 mg Q12HR JAYRO Administration Buspirone HCl 15 mg 06/17/22 23:35 06/27/22 07:53 Buspirone Hcl 5 Mg Tablet PO 15 mg Q
[2022-06-27 19:25] LABS: IFOB Positive Control Positive; Immunochemical Fecal Occult Bl Positive (N)
[2022-06-28] VITALS (17 sets, daily range): BP systolic 122–145; BP diastolic 58–69; PULSE 61–86; RESP 16–22; TEMP 36.4–37.1; O2SAT 95–97
[2022-06-28] MEDS: ALBUTEROL SULFATE NEB 2.5 MG/3 ML INH INHALATION ×4 (03:04→19:49)
[2022-06-28] MEDS: IPRATROPIUM BR 0.02% INH SOLN 0.5 MG/2.5 ML VIAL INHALATION ×4 (03:04→19:49)
[2022-06-28 05:24] LABS: Alanine Aminotransferase 21 U/L (6-50); Albumin Level 3.3 g/dL (3.5-5.1); Alkaline Phosphatase 75 U/L (38-126); Anion Gap 6 mmol/L (8-16); Aspartate Amino Transferase 26 U/L (17-59); Bilirubin,Total 0.3 mg/dL (0.2-1.3); Blood Urea Nitrogen 28 mg/dL (9-20); Carbon Dioxide 30 mmol/L (22-30); Chloride 104 mmol/L (98-107); Estimated CRCL calculation 39 ml/min; Estimated Glomerular Filt Rate 35; Glucose 101 mg/dL (65-110); Potassium 3.9 mmol/L (3.4-5.0); Sodium 140 mmol/L (137-145)
[2022-06-28 05:28] LABS: Basophils Absolute Auto 0.1 K/mm3 (0.0-0.1); Basophils Percent Auto 0.8 % (0.2-1.2); Eosinophils Absolute Auto 0.1 K/mm3 (0-0.3); Eosinophils Percent Auto 1.6 % (0-4.4); Hematocrit 25.2 % (42.0-52.0); Hemoglobin 8.1 g/dL (14.0-18.0); Immature Granulocyte Absolute 0.22 K/mm3 (0.00-0.031); Immature Granulocyte Percent A 2.6 % (0-0.5); Lymphocytes Absolute Auto 1.29 K/mm3 (0.9-3.2); Lymphocytes Percent Auto 15.4 % (18.3-44.2); Mean Corpuscular HGB Conc 32.1 g/dl (32-36); Mean Corpuscular Hemoglobin 31.9 pg (26-34); Mean Corpuscular Volume 99.2 fl (80-100); Mean Platelet Volume 10.7 fl (7.4-10.4); Monocytes Absolute Auto 1.1 K/mm3 (0.1-0.6); Monocytes Percent Auto 13.5 % (2.6-8.5); Neutrophils Absolute Auto 5.5 K/mm3 (1.3-6.7); Neutrophils Percent Auto 66.1 % (45.5-73.1); Platelet Count Result 318 k/mm3 (150-375); Red Blood Count 2.54 M/mm3 (4.6-6.20); Red Cell Distribution Width 16.8 % (11.5-14.5); White Blood Count 8.4 K/mm3 (4.5-10.0)
[2022-06-28] MEDS: SALINE LOCK FLUSH 20 ML IV PUSH (06:12)
[2022-06-28] MEDS: SALINE LOCK FLUSH 10 ML IV PUSH ×3 (06:13→21:04)
--- NOTE | 2022-06-28 08:02 | WPDUROPN2 ---
Progress Note: A&P Assessment and Plan (1) Gross hematuria: Code(s): R31.0 - Gross hematuria Status: Acute Assessment and Plan: Urine appears grossly normal at this time and patient voiding on his own. Will obtain bladder scan for postvoid residual. (2) Renal mass: Code(s): N28.89 - Other specified disorders of kidney and ureter Status: Acute Assessment and Plan: Renal ultrasound simply reveals renal cysts. No comment regarding this [address]. Can be re-evaluated with an MRI of his kidneys in approximately 3 months for further evaluation Subjective Subjective Date/Time Seen: 06/28/22 08:02 Principal diagnosis: Hematuria Interval history: Mondragon catheter removed this morning. Patient has voided. It overall appears fairly clear with some old clot in it. Patient denies any discomfort at this time. Review of Systems Review of Systems: All systems reviewed & are unremarkable except as noted in HPI and below Exam Const: General: cooperative and comfortable Objective Data Vital Signs Vital Signs: Vital Signs - 24 hr 06/27/22 08:27 06/27/22 10:30 06/27/22 09:00 Temperature 36.1 C L 36.4 C L Pulse Rate 78 64 77 Respiratory Rate 20 18 18 Blood Pressure 127/46 L 123/88 Pulse Oximetry 95 97 06/27/22 10:00 06/27/22 13:20 06/27/22 13:34 Temperature 36.3 C L Pulse Rate 63 66 69 Respiratory Rate 18 16 16 Blood Pressure 117/60 Pulse Oximetry 97 06/27/22 12:00 06/27/22 14:00 06/27/22 16:00 Temperature 36.3 C L Pulse Rate 72 70 66 Respiratory Rate 18 Blood Pressure 135/60 Pulse Oximetry 96 06/27/22 20:50 06/27/22 21:17 06/27/22 21:34 Temperature 36.6 C Pulse Rate 70 72 81 Respiratory Rate 14 18 Blood Pressure 146/64 H Pulse Oximetry 100 06/27/22 20:00 06/28/22 00:00 06/28/22 03:05 Temperature Pulse Rate 74 86 70 Respiratory Rate 16 Blood Pressure Pulse Oximetry 06/28/22 04:00 06/28/22 04:59 Temperature 36.6 C Pulse Rate 61 84 Respiratory Rate 18 Blood Pressure 145/60 H Pulse Oximetry 97 Intake/Output Intake/Output: Intake & Output 06/25/22 06/26/22 06/27/22 06/28/22 23:59 23:59 23:59 23:59 Intake Total 1441979 150 Output Total 1974 295 2464 [facility]427 -[phone] -2469 150 Meds/Results Medications: Active Medications Generic Name Dose Route Start Last Admin Trade Name Freq PRN Reason Stop Dose Admin Acetaminophen 975 mg 06/17/22 23:24 06/20/22 11:25 Acetaminophen 325 Mg Tablet PO 975 mg Q8H PRN Administration Mild Pain (1-3) Or Fever Albuterol 2.5 mg 06/18/22 02:00 06/28/22 03:04 Albuterol Sulfate Neb 2.5 Mg/3 Ml Inh INHALATION 2.5 mg Q6HRT JAYRO Administration Amlodipine Besylate 10 mg 06/17/22 23:35 06/27/22 21:17 Amlodipine Besylate 5 Mg Tablet PO 10 mg Q12HR JAYRO Administration Buspirone HCl 15 mg 06/17/22 23:35 06/27/22 21:17 Buspirone Hcl 5 Mg Tablet PO 15 mg Q12HR JAYRO Administration Carvedilol 25 mg 06/17/22 23:35 06/27/22 21:17 Carvedilol 25 Mg Tablet PO 25 mg Q12HR JAYRO Administration Docusate Sodium 100 mg 06/17/22 23:35 06/27/22 21:17 Docusate Sodium 100 Mg Capsule PO 100 mg Q12HR JAYRO Administration Duloxetine HCl 60 mg 06/18/22 09:00 06/27/22 07:54 Duloxetine Hcl 60 Mg Capsule.Dr PO 60 mg QAM JAYRO Administration Folic Acid 1 mg 06/18/22 09:00 06/27/22 07:54 Folic Acid 1 Mg Tablet PO 1 mg DAILY JAYRO Administration Guaifenesin 600 mg 06/17/22 21:00 06/27/22 21:17 Guaifenesin 12 Hr 600 Mg Tabcr PO 600 mg Q12HR JAYRO Administration Home Med 1 each 06/20/22 09:00 06/20/22 15:04 Humira 40mg/0.8ml (Adalimumab Auto-Injector)Use Home Supply SUB-Q 07/20/22 08:59 1 each [id number] JAYRO Administration Ceftriaxone Sodium 2 gm/ 100 mls @ 200 mls/hr 06/22/22 12:45 06/27/22 13:00 Sodium Chloride IVPB Infused QAM JAYRO Infusion Lactated Ringer
[2022-06-28] MEDS: DULoxetine HCL 60 MG CAPSULE.DR PO (09:14)
[2022-06-28] MEDS: carvediloL 25 MG TABLET PO ×2 (09:14→21:02)
[2022-06-28] MEDS: busPIRone HCL 5 MG TABLET 15 MG PO ×2 (09:14→21:01)
[2022-06-28] MEDS: FOLIC ACID 1 MG TABLET PO (09:15)
[2022-06-28] MEDS: CHOLECALCIFEROL 1,000 UNITS TABLET 1000 UNITS PO (09:15)
[2022-06-28] MEDS: NEOMYCIN/POLYMYXIN/BACITRACIN OINTMENT 15 GM TUBE 1 APPLIC TOPICAL (09:15)
[2022-06-28] MEDS: amLODIPine BESYLATE 5 MG TABLET 10 MG PO ×2 (09:15→21:02)
[2022-06-28] MEDS: guaiFENesin 12 HR 600 MG TABCR PO ×2 (09:15→21:02)
[2022-06-28] MEDS: cefTRIAXone 2 GM in SODIUM CHLORIDE 0.9% IV 100 ML 200 ML IVPB (09:16)
[2022-06-28] MEDS: MICONAZOLE NITRATE 2% CREAM 30 GM TUBE 1 APPLIC TOPICAL ×2 (09:16→21:03)
[2022-06-28] MEDS: PANTOPRAZOLE SODIUM IV 40 MG VIAL IV PUSH ×2 (09:16→21:01)
--- NOTE | 2022-06-28 10:51 | PM.IMPN ---
Progress Note: A&P Assessment and Plan (1) Acute kidney injury superimposed on chronic kidney disease: Code(s): N17.9 - Acute kidney failure, unspecified; N18.9 - Chronic kidney disease, unspecified Status: Acute Assessment and Plan: Nephrology no longer following, they have signed off Creatinine essentially stable, slightly worse today at 1.9 up from 1.7, will continue to monitor, encourage p.o. fluid intake (2) Gross hematuria: Code(s): R31.0 - Gross hematuria Status: Acute Assessment and Plan: Status post cystoscopy repeat on 06/26/2022: Clot evacuation fulguration of bladder neck Appreciate urology consultation, Mondragon discontinued this morning, PVR pending, will monitor for hematuria and anticipate discharge when stabilized (3) Urinary retention: Code(s): R33.9 - Retention of urine, unspecified Status: Acute Assessment and Plan: Mondragon removed, appreciate urology, PVR pending (4) Hypokalemia: Code(s): E87.6 - Hypokalemia Status: Acute Assessment and Plan: replace monitor (5) Hyponatremia: Code(s): E87.1 - Hypo-osmolality and hyponatremia Status: Acute Assessment and Plan: Resolved (6) Community acquired pneumonia: Code(s): J18.9 - Pneumonia, unspecified organism Status: Acute Assessment and Plan: Completed 5 day course of azithromycin, previously on vancomycin which is now discontinued, day 7 of Rocephin today then discontinued (7) Macrocytic anemia: Code(s): D53.9 - Nutritional anemia, unspecified Status: Chronic Assessment and Plan: Status post transfusion, hemoglobin appears stable, continue to monitor (8) Hypertension: Code(s): I10 - Essential (primary) hypertension Status: Chronic Assessment and Plan: Continue home medication BP stable (9) Psoriatic arthritis: Code(s): L40.50 - Arthropathic psoriasis, unspecified Status: Chronic Assessment and Plan: hold sulfasalazine (10) Bacteremia: Code(s): R78.81 - Bacteremia Status: Acute Assessment and Plan: Recent left hip fracture 05/15/22 status post left intramedullary trochanteric nailing Blood culture coming back positive for E coli collected on 06/17/2022. Repeat blood cultures been negative to date from 06/21/2022. Will complete 7 day course of IV antibiotics today Plan Okay DVT prophylaxis with SCDs GI prophylaxis not indicated Code status full code Subjective Date/time seen: 06/28/22 10:51 Interval history: No overnight events noted. No chest pain or shortness of breath. No nausea, vomiting or diarrhea. No fevers or chills. Patient is eager to go home but understands he needs to stay 1 more day. Review of Systems Review of Systems: 12 point review of systems was assessed and was negative except as noted in the HPI Exam Narrative: General: No acute distress, alert and oriented per baseline HEENT: Atraumatic, normocephalic, mucous membranes moist CV: Regular rate and rhythm, S1, S2 Lungs: Clear to auscultation bilaterally, no rales or crackles noted, no wheezes, good air entry Abdomen: Soft, nontender, nondistended Extremities: Normal to inspection Skin: No rashes noted, no lesions or wounds seen Psych: Euthymic, normal affect : Mondragon removed, urine is reddish brown in color with some clots per patient Objective Data Vital Signs Vital Signs: Vital Signs - 24 hr 06/27/22 13:20 06/27/22 13:34 06/27/22 12:00 Temperature Pulse Rate 66 69 72 Respiratory Rate 16 16 Blood Pressure Pulse Oximetry 06/27/22 14:00 06/27/22 16:00 06/27/22 20:50 Temperature 97.4 F L Pulse Rate 70 66 70 Respiratory Rate 18 14 Blood Pressure 135/60 Pulse Oximetry 96 06/27/22 21:17 06/27/22 21:34 06/27/22 20:00 Temperature 97.9 F Pulse Rate 72 81 74 Respiratory Rate 18 Blood Pressure 146/64
[2022-06-28 11:10] LABS: Creatinine Urine 70.8 mg/dL
[2022-06-28 11:26] LABS: Sodium Urine Random 76 meq/L
[2022-06-28 12:30] LABS: Eosinophil Urine Rare % (None Seen)
[2022-06-28] MEDS: DOCUSATE SODIUM 100 MG CAPSULE PO (21:02)
[2022-06-29] VITALS (16 sets, daily range): BP systolic 129–140; BP diastolic 51–59; PULSE 63–79; RESP 16–20; TEMP 36.6–36.8; O2SAT 96–100
[2022-06-29] MEDS: SALINE LOCK FLUSH 20 ML IV PUSH (05:10)
[2022-06-29] MEDS: SALINE LOCK FLUSH 10 ML IV PUSH ×3 (05:10→20:17)
[2022-06-29 06:15] LABS: Basophils Absolute Auto 0.1 K/mm3 (0.0-0.1); Basophils Percent Auto 0.7 % (0.2-1.2); Eosinophils Absolute Auto 0.2 K/mm3 (0-0.3); Eosinophils Percent Auto 2.3 % (0-4.4); Hematocrit 27.2 % (42.0-52.0); Hemoglobin 8.6 g/dL (14.0-18.0); Immature Granulocyte Absolute 0.14 K/mm3 (0.00-0.031); Lymphocytes Absolute Auto 1.03 K/mm3 (0.9-3.2); Mean Corpuscular HGB Conc 31.6 g/dl (32-36); Mean Corpuscular Hemoglobin 32.5 pg (26-34); Mean Corpuscular Volume 102.6 fl (80-100); Mean Platelet Volume 10.9 fl (7.4-10.4); Monocytes Percent Auto 14.6 % (2.6-8.5); Neutrophils Absolute Auto 4.5 K/mm3 (1.3-6.7); Neutrophils Percent Auto 65.4 % (45.5-73.1); Platelet Count Result 318 k/mm3 (150-375); Red Blood Count 2.65 M/mm3 (4.6-6.20); Red Cell Distribution Width 16.5 % (11.5-14.5); White Blood Count 6.9 K/mm3 (4.5-10.0)
[2022-06-29 06:32] LABS: Alanine Aminotransferase 19 U/L (6-50); Albumin Level 3.5 g/dL (3.5-5.1); Alkaline Phosphatase 72 U/L (38-126); Anion Gap 6 mmol/L (8-16); Aspartate Amino Transferase 24 U/L (17-59); Bilirubin,Total 0.3 mg/dL (0.2-1.3); Blood Urea Nitrogen 31 mg/dL (9-20); Calcium 9.1 mg/dL (8.4-10.2); Carbon Dioxide 32 mmol/L (22-30); Chloride 99 mmol/L (98-107); Estimated CRCL calculation 41 ml/min; Estimated Glomerular Filt Rate 37; Glucose 99 mg/dL (65-110); Sodium 137 mmol/L (137-145)
--- NOTE | 2022-06-29 07:31 | PCNWS ---
Weekly nutritional screen. Patient is tolerating current diet with adequate intake. No weight loss reported. No nutritional needs at this time.
[2022-06-29] MEDS: IPRATROPIUM BR 0.02% INH SOLN 0.5 MG/2.5 ML VIAL INHALATION ×2 (08:58→19:50)
[2022-06-29] MEDS: ALBUTEROL SULFATE NEB 2.5 MG/3 ML INH INHALATION ×2 (08:59→19:50)
[2022-06-29] MEDS: amLODIPine BESYLATE 5 MG TABLET 10 MG PO ×2 (10:06→20:16)
[2022-06-29] MEDS: PANTOPRAZOLE SODIUM IV 40 MG VIAL IV PUSH ×2 (10:06→20:16)
[2022-06-29] MEDS: guaiFENesin 12 HR 600 MG TABCR PO ×2 (10:06→20:16)
[2022-06-29] MEDS: CHOLECALCIFEROL 1,000 UNITS TABLET 1000 UNITS PO (10:06)
[2022-06-29] MEDS: carvediloL 25 MG TABLET PO ×2 (10:06→20:16)
[2022-06-29] MEDS: busPIRone HCL 5 MG TABLET 15 MG PO ×2 (10:06→20:16)
[2022-06-29] MEDS: FOLIC ACID 1 MG TABLET PO (10:07)
[2022-06-29] MEDS: DOCUSATE SODIUM 100 MG CAPSULE PO ×2 (10:07→20:16)
[2022-06-29] MEDS: DULoxetine HCL 60 MG CAPSULE.DR PO (10:07)
[2022-06-29] MEDS: MICONAZOLE NITRATE 2% CREAM 30 GM TUBE 1 APPLIC TOPICAL ×2 (19:24→20:17)
[2022-06-29] MEDS: NEOMYCIN/POLYMYXIN/BACITRACIN OINTMENT 15 GM TUBE 1 APPLIC TOPICAL (19:24)
--- NOTE | 2022-06-29 19:58 | PM.IMPN ---
Progress Note: A&P Assessment and Plan (1) Acute kidney injury superimposed on chronic kidney disease: Code(s): N17.9 - Acute kidney failure, unspecified; N18.9 - Chronic kidney disease, unspecified Status: Acute Assessment and Plan: Continues to improve, down to 1.8 today (2) Gross hematuria: Code(s): R31.0 - Gross hematuria Status: Acute Assessment and Plan: Status post cystoscopy repeat on 06/26/2022: Clot evacuation fulguration of bladder neck Appreciate urology consultation, Mondragon discontinued yesterday, urine initially clear, then hematuria recurred (3) Urinary retention: Code(s): R33.9 - Retention of urine, unspecified Status: Acute Assessment and Plan: resolved (4) Hypokalemia: Code(s): E87.6 - Hypokalemia Status: Acute Assessment and Plan: replace monitor (5) Hyponatremia: Code(s): E87.1 - Hypo-osmolality and hyponatremia Status: Acute Assessment and Plan: Resolved (6) Community acquired pneumonia: Code(s): J18.9 - Pneumonia, unspecified organism Status: Acute Assessment and Plan: Completed 5 day course of azithromycin, previously on vancomycin which is now discontinued, 7 day course of Rocephin completed (7) Macrocytic anemia: Code(s): D53.9 - Nutritional anemia, unspecified Status: Chronic Assessment and Plan: Status post transfusion, hemoglobin appears stable, continue to monitor (8) Hypertension: Code(s): I10 - Essential (primary) hypertension Status: Chronic Assessment and Plan: Continue home medication BP stable (9) Psoriatic arthritis: Code(s): L40.50 - Arthropathic psoriasis, unspecified Status: Chronic Assessment and Plan: hold sulfasalazine (10) Bacteremia: Code(s): R78.81 - Bacteremia Status: Acute Assessment and Plan: Recent left hip fracture 05/15/22 status post left intramedullary trochanteric nailing Blood culture coming back positive for E coli collected on 06/17/2022. Repeat blood cultures been negative to date from 06/21/2022. Will complete 7 day course of IV antibiotics today Plan Okay DVT prophylaxis with SCDs GI prophylaxis not indicated Code status full code Subjective Date/time seen: 06/29/22 19:58 Interval history: No overnight events noted. No chest pain or shortness of breath. No nausea, vomiting or diarrhea. No fevers or chills. Recurrence of hematuria noted today. PVRs have been good. Review of Systems Review of Systems: 12 point review of systems was assessed and was negative except as noted in the HPI Exam Narrative: General: No acute distress, alert and oriented per baseline HEENT: Atraumatic, normocephalic, mucous membranes moist CV: Regular rate and rhythm, S1, S2 Lungs: Clear to auscultation bilaterally, no rales or crackles noted, no wheezes, good air entry Abdomen: Soft, nontender, nondistended Extremities: Normal to inspection Skin: No rashes noted, no lesions or wounds seen Psych: Euthymic, normal affect : Mondragon removed, hematuria returned Objective Data Vital Signs Vital Signs: Vital Signs - 24 hr 06/28/22 21:02 06/28/22 20:00 06/28/22 21:45 Temperature 98.8 F Pulse Rate 76 74 73 Respiratory Rate 22 H Blood Pressure 132/69 Pulse Oximetry 95 Oxygen Delivery 06/29/22 00:00 06/29/22 04:00 06/29/22 05:17 Temperature 97.8 F Pulse Rate 69 63 67 Respiratory Rate 16 Blood Pressure 140/57 L Pulse Oximetry 97 Oxygen Delivery 06/29/22 08:59 06/29/22 09:16 06/29/22 10:06 Temperature Pulse Rate 74 73 73 Respiratory Rate 18 20 Blood Pressure Pulse Oximetry Oxygen Delivery 06/29/22 08:00 06/29/22 08:00 06/29/22 13:08 Temperature Pulse Rate 67 73 Respiratory Rate 18 Blood Pressure Pulse Oximetry Oxygen Delivery Room Air 06/29/22 13:19 12
[2022-06-30] VITALS (12 sets, daily range): BP systolic 139–141; BP diastolic 53–68; PULSE 66–113; RESP 16–18; TEMP 36.6–36.9; O2SAT 96–100
--- NOTE | 2022-06-30 04:11 | PCRCNOTE ---
Patient refused 0200 updraft treatment due to wanting sleep. RN aware. Pt to call RN if he wakes up and is short of breath. Tx will be given per RT.
[2022-06-30] MEDS: SALINE LOCK FLUSH 10 ML IV PUSH (05:28)
[2022-06-30 07:04] LABS: Basophils Absolute Auto 0.1 K/mm3 (0.0-0.1); Basophils Percent Auto 0.8 % (0.2-1.2); Eosinophils Absolute Auto 0.2 K/mm3 (0-0.3); Eosinophils Percent Auto 2.6 % (0-4.4); Hematocrit 28.5 % (42.0-52.0); Hemoglobin 9.1 g/dL (14.0-18.0); Immature Granulocyte Percent A 1.6 % (0-0.5); Lymphocytes Absolute Auto 0.86 K/mm3 (0.9-3.2); Lymphocytes Percent Auto 13.8 % (18.3-44.2); Mean Corpuscular HGB Conc 31.9 g/dl (32-36); Mean Corpuscular Hemoglobin 32.2 pg (26-34); Mean Corpuscular Volume 100.7 fl (80-100); Mean Platelet Volume 10.5 fl (7.4-10.4); Monocytes Absolute Auto 1.1 K/mm3 (0.1-0.6); Monocytes Percent Auto 17.2 % (2.6-8.5); Platelet Count Result 300 k/mm3 (150-375); Red Blood Count 2.83 M/mm3 (4.6-6.20); White Blood Count 6.2 K/mm3 (4.5-10.0)
[2022-06-30 07:17] LABS: Alanine Aminotransferase 18 U/L (6-50); Albumin Level 3.8 g/dL (3.5-5.1); Alkaline Phosphatase 71 U/L (38-126); Anion Gap 5 mmol/L (8-16); Aspartate Amino Transferase 25 U/L (17-59); Bilirubin,Total 0.5 mg/dL (0.2-1.3); Blood Urea Nitrogen 33 mg/dL (9-20); Calcium 9.5 mg/dL (8.4-10.2); Carbon Dioxide 30 mmol/L (22-30); Chloride 101 mmol/L (98-107); Estimated CRCL calculation 46 ml/min; Estimated Glomerular Filt Rate 42; Glucose 105 mg/dL (65-110); Sodium 136 mmol/L (137-145)
[2022-06-30] MEDS: ALBUTEROL SULFATE NEB 2.5 MG/3 ML INH INHALATION ×2 (08:33→15:14)
[2022-06-30] MEDS: IPRATROPIUM BR 0.02% INH SOLN 0.5 MG/2.5 ML VIAL INHALATION ×2 (08:33→15:14)
[2022-06-30] MEDS: amLODIPine BESYLATE 5 MG TABLET 10 MG PO (09:03)
[2022-06-30] MEDS: DULoxetine HCL 60 MG CAPSULE.DR PO (09:03)
[2022-06-30] MEDS: PANTOPRAZOLE SODIUM IV 40 MG VIAL IV PUSH (09:03)
[2022-06-30] MEDS: DOCUSATE SODIUM 100 MG CAPSULE PO (09:03)
[2022-06-30] MEDS: CHOLECALCIFEROL 1,000 UNITS TABLET 1000 UNITS PO (09:03)
[2022-06-30] MEDS: guaiFENesin 12 HR 600 MG TABCR PO (09:03)
[2022-06-30] MEDS: carvediloL 25 MG TABLET PO (09:03)
[2022-06-30] MEDS: FOLIC ACID 1 MG TABLET PO (09:03)
[2022-06-30] MEDS: busPIRone HCL 5 MG TABLET 15 MG PO (09:03)
[2022-06-30] MEDS: MICONAZOLE NITRATE 2% CREAM 30 GM TUBE 1 APPLIC TOPICAL (09:05)
[2022-06-30] MEDS: NEOMYCIN/POLYMYXIN/BACITRACIN OINTMENT 15 GM TUBE 1 APPLIC TOPICAL (09:05)
--- NOTE | 2022-06-30 09:50 | PM.IMPN ---
Progress Note: A&P Assessment and Plan (1) Acute kidney injury superimposed on chronic kidney disease: Code(s): N17.9 - Acute kidney failure, unspecified; N18.9 - Chronic kidney disease, unspecified Status: Acute Assessment and Plan: Continues to improve, down to 1.6 today (2) Gross hematuria: Code(s): R31.0 - Gross hematuria Status: Acute Assessment and Plan: Status post cystoscopy repeat on 06/26/2022: Clot evacuation fulguration of bladder neck Appreciate urology consultation, Mondragon discontinued, urine initially clear, then hematuria recurred PVRs have been okay (3) Urinary retention: Code(s): R33.9 - Retention of urine, unspecified Status: Acute Assessment and Plan: resolved (4) Hypokalemia: Code(s): E87.6 - Hypokalemia Status: Acute Assessment and Plan: Resolved (5) Hyponatremia: Code(s): E87.1 - Hypo-osmolality and hyponatremia Status: Acute Assessment and Plan: Resolved (6) Community acquired pneumonia: Code(s): J18.9 - Pneumonia, unspecified organism Status: Acute Assessment and Plan: Completed 5 day course of azithromycin, previously on vancomycin which is now discontinued, 7 day course of Rocephin completed (7) Macrocytic anemia: Code(s): D53.9 - Nutritional anemia, unspecified Status: Chronic Assessment and Plan: Status post transfusion, hemoglobin appears stable, continue to monitor (8) Hypertension: Code(s): I10 - Essential (primary) hypertension Status: Chronic Assessment and Plan: Restart losartan today (9) Psoriatic arthritis: Code(s): L40.50 - Arthropathic psoriasis, unspecified Status: Chronic Assessment and Plan: Restart sulfasalazine today (10) Bacteremia: Code(s): R78.81 - Bacteremia Status: Acute Assessment and Plan: Recent left hip fracture 05/15/22 status post left intramedullary trochanteric nailing Blood culture coming back positive for E coli collected on 06/17/2022. Repeat blood cultures been negative to date from 06/21/2022. Completed 7 day course of IV antibiotics Plan Okay DVT prophylaxis with SCDs GI prophylaxis not indicated Code status full code Subjective Date/time seen: 06/30/22 09:50 Interval history: No overnight events noted. No chest pain or shortness of breath. No nausea, vomiting or diarrhea. Review of Systems Review of Systems: 12 point review of systems was assessed and was negative except as noted in the HPI Exam Narrative: General: No acute distress, alert and oriented per baseline HEENT: Atraumatic, normocephalic, mucous membranes moist CV: Regular rate and rhythm, S1, S2 Lungs: Clear to auscultation bilaterally, no rales or crackles noted, no wheezes, good air entry Abdomen: Soft, nontender, nondistended Extremities: Normal to inspection Skin: No rashes noted, no lesions or wounds seen Psych: Euthymic, normal affect : Mondragon removed Objective Data Vital Signs Vital Signs: Vital Signs - 24 hr 06/29/22 10:06 06/29/22 13:08 06/29/22 13:19 Temperature Pulse Rate 73 73 76 Respiratory Rate 18 18 Blood Pressure Pulse Oximetry Oxygen Delivery 06/29/22 14:00 06/29/22 12:00 06/29/22 16:00 Temperature 97.8 F Pulse Rate 74 77 79 Respiratory Rate 18 Blood Pressure 140/59 L Pulse Oximetry 96 Oxygen Delivery 06/29/22 20:16 06/29/22 20:00 06/29/22 21:24 Temperature 98.2 F Pulse Rate 75 75 Respiratory Rate 20 Blood Pressure 129/51 L Pulse Oximetry 100 Oxygen Delivery Room Air 06/29/22 20:00 06/30/22 00:00 06/29/22 19:50 Temperature Pulse Rate 72 82 71 Respiratory Rate 18 Blood Pressure Pulse Oximetry Oxygen Delivery 06/29/22 20:00 06/30/22 04:00 06/30/22 05:56 Temperature 98.5 F Pulse Rate 71 71 66 Respiratory Rate 18 16 Blood Press
--- NOTE | 2022-06-30 12:37 | PM.DS ---
DS: Admitting Diagnosis Discharge Date 06/30/22 Admitting Diagnosis weakness DS: Discharge Diagnosis Discharge Diagnosis (1) Acute kidney injury superimposed on chronic kidney disease: Code(s): N17.9 - Acute kidney failure, unspecified; N18.9 - Chronic kidney disease, unspecified Status: Acute Assessment and Plan: Continues to improve, down to 1.6 today (2) Gross hematuria: Code(s): R31.0 - Gross hematuria Status: Acute Assessment and Plan: Status post cystoscopy repeat on 06/26/2022: Clot evacuation fulguration of bladder neck Appreciate urology consultation, Gregory discontinued, urine initially clear, then hematuria recurred PVRs have been okay (3) Urinary retention: Code(s): R33.9 - Retention of urine, unspecified Status: Acute Assessment and Plan: resolved (4) Hypokalemia: Code(s): E87.6 - Hypokalemia Status: Acute Assessment and Plan: Resolved (5) Hyponatremia: Code(s): E87.1 - Hypo-osmolality and hyponatremia Status: Acute Assessment and Plan: Resolved (6) Community acquired pneumonia: Code(s): J18.9 - Pneumonia, unspecified organism Status: Acute Assessment and Plan: Completed 5 day course of azithromycin, previously on vancomycin which is now discontinued, 7 day course of Rocephin completed (7) Macrocytic anemia: Code(s): D53.9 - Nutritional anemia, unspecified Status: Chronic Assessment and Plan: Status post transfusion, hemoglobin appears stable, continue to monitor (8) Hypertension: Code(s): I10 - Essential (primary) hypertension Status: Chronic Assessment and Plan: Restart losartan today (9) Psoriatic arthritis: Code(s): L40.50 - Arthropathic psoriasis, unspecified Status: Chronic Assessment and Plan: Restart sulfasalazine today (10) Bacteremia: Code(s): R78.81 - Bacteremia Status: Acute Assessment and Plan: Recent left hip fracture 05/15/22 status post left intramedullary trochanteric nailing Blood culture coming back positive for E coli collected on 06/17/2022. Repeat blood cultures been negative to date from 06/21/2022. Completed 7 day course of IV antibiotics Plan Okay DVT prophylaxis with SCDs GI prophylaxis not indicated Code status full code DS: Summary Hospital Course Hospital Course: 77 y/o Mp/w weakness, found to have GERRI and CAP. He also was noted to have significant hematuria and urology was consulted. Gregory placed, CBI performed, cystoscopy performed as above and clot evacuation performed. Patient completed 7 day course of abx for CAP, transient bacteremia noted on admission, repeat blood cx negative. Hematuria resolved, gregory removed, patient d/c in good condition with outpatient f/u with urology. Time Spent with Patient Time attestation: Total time spent providing and/or coordinating discharge services: Exam Narrative: General: No acute distress, alert and oriented per baseline HEENT: Atraumatic, normocephalic, mucous membranes moist CV: Regular rate and rhythm, S1, S2 Lungs: Clear to auscultation bilaterally, no rales or crackles noted, no wheezes, good air entry Abdomen: Soft, nontender, nondistended Extremities: Normal to inspection Skin: No rashes noted, no lesions or wounds seen Psych: Euthymic, normal affect : Gregory removed DS: Data Data Completed and Pending Labs on day of discharge: Labs from last 24 hours 06/30/22 06/30/22 06:58 06:58 WBC 6.2 RBC 2.83 L Hgb 9.1 L Hct 28.5 L MCV 100.7 H MCH 32.2 MCHC 31.9 L RDW 16.0 H Plt Count 300 MPV 10.5 H Immature Gran % (Auto) 1.6 H Neut % (Auto) 64.0 Lymph % (Auto) 13.8 L [place] % (Auto) 17.2 H Eos % (Auto) 2.6 Baso % (Auto) 0.8 Lymph # (Auto) 0.86 L [place] # (Auto) 1.1 H Eos # (Auto) 0.2 Baso # (Auto) 0.1 Abs Immat Gran (auto) 0.10 H
--- NOTE | 2022-06-30 15:30 | PC.NURSE ---
Dr Linder says patient is okay for discharge
[2022-07-02 06:44] LABS: Legionella pneumophila Ag Ur Not Detected (Not Detected)
[2022-07-03 19:49] LABS: Osmolality, Urine 367 mOsm/kg (50-1200)
[2022-07-07 05:40] LABS: Pneumococcal Antigen Urine Not Detected (Not Detected)
== END 2022-06-30 16:00 | disposition home health service (06) | DRG 662 ==
LOC: ANHED 15:38 → ANH2MED 17:42
PROVIDERS: Internal Medicine Critical Care Medicine; Physician Assistant; Student in an Organized Health Care Education/Training Program; Urology; Admitting Provider Internal Medicine; Emergency Provider Preventive Medicine Aerospace Medicine; Visit Provider Internal Medicine
PROC: 0TCB8ZZ Extirpation of Matter from Bladder, Via Natural or Artificial Opening Endoscopic (ICD-10-PCS; CPT 52001; principal; 2022-06-18 12:00)
DX: N17.9 Acute kidney failure, unspecified (principal); J18.9 Pneumonia, unspecified organism; E87.1 Hypo-osmolality and hyponatremia; N30.41 Irradiation cystitis with hematuria; R78.81 Bacteremia; R33.9 Retention of urine, unspecified; R31.0 Gross hematuria; E87.6 Hypokalemia; R77.8 Other specified abnormalities of plasma proteins; D53.9 Nutritional anemia, unspecified; L40.50 Arthropathic psoriasis, unspecified; I12.9 Hypertensive chronic kidney disease with stage 1 through stage 4 chronic kidney disease, or unspecified chronic kidney disease; Z90.79 Acquired absence of other genital organ(s); N18.32 Chronic kidney disease, stage 3b; N28.89 Other specified disorders of kidney and ureter; B96.20 Unspecified Escherichia coli [E. coli] as the cause of diseases classified elsewhere; Z20.822 Contact with and (suspected) exposure to COVID-19; Z85.46 Personal history of malignant neoplasm of prostate; Z88.3 Allergy status to other anti-infective agents; Z87.891 Personal history of nicotine dependence; Z79.899 Other long term (current) drug therapy
CPT/HCPCS: 36415; 36430; 36569; 71046; 71250; 74176; 76770; 80048; 80053; 81001; 82274; 82550; 82570; 83735; 83935; 84295; 84300; 84484; 85014; 85018; 85025; 85027; 85055; 85999; 86738; 86850; 86900; 86901; 86923; 87040; 87077; 87186; 87449; 87636; 87899; 93005; 94640; 96365; 96367; 96375; 97110; 97116; 97161; 97166; 97530; 97535; 99285; A9270; C1751; C8929; C9113; G0378; J0456; J0692; J0696; J1100; J2405; J2704; J3010; J3370; J3480; J7030; J7040; J7050; J7120; P9016; Q9957

== ENCOUNTER 2022-07-06 21:56 | Emergency (ER) | payer MEDICARE, OTHER, SELFPAY ==
[2022-07-06 22:10] VITALS: BP 107/50; PULSE 84; RESP 18; TEMP 36.1; O2SAT 98
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
[2022-07-06 22:53] LABS: Basophils Percent Auto 0.4 % (0.2-1.2); Eosinophils Absolute Auto 0.1 K/mm3 (0-0.3); Eosinophils Percent Auto 1.6 % (0-4.4); Hematocrit 26.4 % (42.0-52.0); Hemoglobin 8.4 g/dL (14.0-18.0); Immature Granulocyte Absolute 0.04 K/mm3 (0.00-0.031); Immature Granulocyte Percent A 0.5 % (0-0.5); Lymphocytes Absolute Auto 1.07 K/mm3 (0.9-3.2); Lymphocytes Percent Auto 13.9 % (18.3-44.2); Mean Corpuscular HGB Conc 31.8 g/dl (32-36); Mean Corpuscular Hemoglobin 32.3 pg (26-34); Mean Corpuscular Volume 101.5 fl (80-100); Mean Platelet Volume 10.7 fl (7.4-10.4); Monocytes Absolute Auto 0.9 K/mm3 (0.1-0.6); Monocytes Percent Auto 11.1 % (2.6-8.5); Neutrophils Absolute Auto 5.6 K/mm3 (1.3-6.7); Neutrophils Percent Auto 72.5 % (45.5-73.1); Platelet Count Result 195 k/mm3 (150-375); Red Cell Distribution Width 16.1 % (11.5-14.5); White Blood Count 7.7 K/mm3 (4.5-10.0)
[2022-07-06 22:54] LABS: Add Urine Microscopic? YES; Appearance Urine Clear (Clear); Bilirubin Urine 1+ (Negative); Blood Urine 3+ (Negative); Color Urine Yellow (Yellow); Glucose Urine UA Negative (Negative); Ketones Urine Negative (Negative); Leukocyte Esterase Ur Negative LEU/UL (Negative); Nitrate Urine Negative (Negative); Protein Urine 3+ mg/dL (Negative); Urobilinogen Urine 0.2 mg/dL (<2.0)
[2022-07-06 23:02] LABS: Anion Gap 5 mmol/L (8-16); Blood Urea Nitrogen 26 mg/dL (9-20); Calcium 9.1 mg/dL (8.4-10.2); Carbon Dioxide 29 mmol/L (22-30); Chloride 101 mmol/L (98-107); Estimated CRCL calculation 35 ml/min; Estimated Glomerular Filt Rate 31; Glucose 110 mg/dL (65-110); Potassium 3.3 mmol/L (3.4-5.0); Sodium 135 mmol/L (137-145)
[2022-07-06 23:07] LABS: RBC Urine >75 /hpf (0-2)
[2022-07-07] MEDS: ACETAMINOPHEN 500 MG TABLET 1000 MG PO (00:29)
[2022-07-07] MEDS: traMADol HCL (*CRX) 50 MG TABLET PO (01:25)
[2022-07-07] MEDS: POTASSIUM CHLORIDE 20 MEQ TABLET 40 MEQ PO (01:58)
== END 2022-07-07 02:54 | disposition home or self-care (01) ==
PROVIDERS: Emergency Provider Physician Assistant
DX: R33.9 Retention of urine, unspecified (principal); R31.0 Gross hematuria; E87.6 Hypokalemia; I12.9 Hypertensive chronic kidney disease with stage 1 through stage 4 chronic kidney disease, or unspecified chronic kidney disease; N18.30 Chronic kidney disease, stage 3 unspecified; L40.50 Arthropathic psoriasis, unspecified; F41.9 Anxiety disorder, unspecified; Z90.79 Acquired absence of other genital organ(s); Z85.46 Personal history of malignant neoplasm of prostate; Z87.891 Personal history of nicotine dependence
CPT/HCPCS: 36415; 51702; 80048; 81001; 85025; 99283; A9270

== ENCOUNTER 2022-07-10 14:08 | Emergency (ER) | payer MEDICARE, OTHER, SELFPAY ==
[2022-07-10 14:20] VITALS: BP 128/66; PULSE 92; RESP 20; TEMP 36.4; O2SAT 97
[2022-07-10 19:08] LABS: Add Urine Microscopic? YES; Appearance Urine Cloudy (Clear); Bilirubin Urine Negative (Negative); Blood Urine 3+ (Negative); Color Urine Yellow (Yellow); Glucose Urine UA Negative (Negative); Ketones Urine Negative (Negative); Leukocyte Esterase Ur Trace LEU/UL (Negative); Nitrate Urine Negative (Negative); Protein Urine 2+ mg/dL (Negative); Urobilinogen Urine 0.2 mg/dL (<2.0)
[2022-07-10 19:20] LABS: RBC Urine >75 /hpf (0-2); WBC Urine 0-3 /hpf
[2022-07-10 20:07] LABS: Basophils Percent Auto 0.7 % (0.2-1.2); Eosinophils Absolute Auto 0.2 K/mm3 (0-0.3); Hematocrit 27.5 % (42.0-52.0); Hemoglobin 8.6 g/dL (14.0-18.0); Immature Granulocyte Absolute 0.02 K/mm3 (0.00-0.031); Immature Granulocyte Percent A 0.4 % (0-0.5); Lymphocytes Absolute Auto 1.03 K/mm3 (0.9-3.2); Lymphocytes Percent Auto 22.7 % (18.3-44.2); Mean Corpuscular HGB Conc 31.3 g/dl (32-36); Mean Corpuscular Hemoglobin 31.4 pg (26-34); Mean Corpuscular Volume 100.4 fl (80-100); Mean Platelet Volume 10.6 fl (7.4-10.4); Monocytes Absolute Auto 0.7 K/mm3 (0.1-0.6); Neutrophils Absolute Auto 2.6 K/mm3 (1.3-6.7); Neutrophils Percent Auto 57.2 % (45.5-73.1); Platelet Count Result 226 k/mm3 (150-375); Red Blood Count 2.74 M/mm3 (4.6-6.20); Red Cell Distribution Width 16.3 % (11.5-14.5); White Blood Count 4.5 K/mm3 (4.5-10.0)
[2022-07-10 20:17] LABS: Anion Gap 6 mmol/L (8-16); Blood Urea Nitrogen 26 mg/dL (9-20); Calcium 9.5 mg/dL (8.4-10.2); Carbon Dioxide 31 mmol/L (22-30); Chloride 98 mmol/L (98-107); Estimated CRCL calculation 39 ml/min; Estimated Glomerular Filt Rate 35; Glucose 107 mg/dL (65-110); Potassium 3.4 mmol/L (3.4-5.0); Sodium 135 mmol/L (137-145)
[2022-07-10] MEDS: CIPROFLOXACIN 500 MG TAB PO (22:21)
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
== END 2022-07-10 22:38 | disposition home or self-care (01) ==
PROVIDERS: Physician Assistant; Emergency Provider Emergency Medicine
DX: R31.9 Hematuria, unspecified (principal); I12.9 Hypertensive chronic kidney disease with stage 1 through stage 4 chronic kidney disease, or unspecified chronic kidney disease; N18.30 Chronic kidney disease, stage 3 unspecified; Z85.46 Personal history of malignant neoplasm of prostate; Z90.79 Acquired absence of other genital organ(s); L40.50 Arthropathic psoriasis, unspecified; Z87.891 Personal history of nicotine dependence
CPT/HCPCS: 36415; 51700; 80048; 81001; 85025; 86850; 86900; 86901; 99283; A9270

== ENCOUNTER 2023-09-30 12:27 | Inpatient (IN) | payer MEDICARE, OTHER, SELFPAY ==
[2023-09-30] VITALS (8 sets, daily range): BP systolic 124–190; BP diastolic 69–82; PULSE 68–88; RESP 17–23; TEMP 36.1–36.4; O2SAT 91–96
--- NOTE | ~2023-09-30 | XR_ITS ---
XR chest 2V 09/30/2023 12:54 Indication: Weakness and shortness of breath Procedure: AP and lateral views the chest Comparison: Comparison to multiple prior studies sequentially, with oldest reviewed study dated 12/17. Findings: Low lung volumes. Patchy bilateral infiltrates which may represent a combination of pneumon ia and/or chronic interstitial lung disease. No significant effusion. No pneumothorax. No acute osseo us abnormality. Impression: 1: Patchy bilateral infiltrates may represent combination of pneumonia and/or chronic interstitial roz ng disease. Reviewed, dictated and finalized at location B. Impression: 1: Patchy bilateral infiltrates may represent combination of pneumonia and/or c hronic interstitial lung disease.
--- NOTE | ~2023-09-30 | CT_ITS ---
EXAMINATION: CT brain wo con DATE: 09/30/2023 16:16 INDICATION: Altered mental status TECHNIQUE: Computed tomography (CT) of the head was performed without intravenous contrast. Sagittal and coronal reconstructions were performed. The mA was adjusted according to patient size. Iterative reconstruction technique was employed. The dose-length product was 756.67 mGy-cm. COMPARISON: None FINDINGS: No acute intracranial hemorrhage, acute infarction or abnormal extra axial fluid collection. There is mild scattered white matter hypoattenuation consistent with chronic small vessel ischemic disease. S ymmetric prominence of the sulci and and subarachnoid spaces overlying the convexities consistent wit h mild age-appropriate diffuse cerebral volume loss. Ventricles are normal and symmetric. No mass/mas s effect. There is a metallic foreign body along the left transverse process of C2. The orbits, paran francis sinuses and mastoid air cells are normal. IMPRESSION: 1. No acute intracranial process. 2. Age-related changes including mild diffuse volume loss and mild scattered white matter hypoattenua tion consistent with chronic small vessel ischemic disease. Reviewed, dictated and finalized at location A. IMPRESSION: 1. No acute intracranial process. 2. Age-related changes including mild diffuse volume loss and mild scattered wh ite matter hypoattenuation consistent with chronic small vessel ischemic diseas e.
--- NOTE | ~2023-09-30 | CT_ITS ---
EXAMINATION: CT abdomen pelvis wo con DATE: 09/30/2023 16:17 INDICATION: Altered mental status TECHNIQUE: Computed tomography (CT) of the abdomen and pelvis was performed without intravenous contr ast. Automated exposure control and iterative reconstruction technique were employed. The dose-length product was 1426.89 mGy-cm. COMPARISON: 06/19/2022 FINDINGS: Small left pleural effusion. Dependent atelectasis in the bilateral lower lobes. There is also mild b ronchiectasis in the right lower lobe. Heart size is normal. Atherosclerotic coronary artery calcific lesion. No pericardial effusion. Liver, gallbladder, spleen, pancreas, bilateral adrenal glands are normal. There are multiple bilateral low-attenuation renal cysts the largest on the left measuring 4. 7 cm. There are couple small indeterminate intermediate attenuation renal lesions the larger on the r ight measuring 11 mm and measuring 7 mm on the left. No interval change in a couple small parenchymal calcifications in the left kidney. Normal appendix. Again seen is a [place] supraumbilical ventral hernia which contains a segment of nonobstructed small bowel. Bladder is normal. Status post prostat ectomy. No free intraperitoneal gas or fluid. No pathologically enlarged abdominal or pelvic lymphade nopathy. Bilateral small fat-containing inguinal hernias. Old healed intertrochanteric fracture the p roximal left femur with antegrade intramedullary misty and interlocking femoral neck screw fixation. 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 Severe spondylosis at the lumbosacral junction with moderate spondylosis and more cephalad lumbar and lower thoracic spine. There are bridg ing osteophytes at multiple levels consistent with diffuse idiopathic skeletal hyperostosis (DISH). IMPRESSION: 1. No acute intra-abdominal/pelvic process. 2. Chronic small left pleural effusion. 3. Widemouthed supra umbilical ventral hernia containing short segment of nonobstructed small bowel. 4. Multiple bilateral renal cysts with a couple small indeterminate intermediate attenuation renal le sions measuring 11 mm on the right and 7 mm in the left statistically most likely to represent hemorr hagic cysts although differential includes neoplasm. Consider further evaluation with pre and postcon trast MRI or CT. Reviewed, dictated and finalized at location A. IMPRESSION: 1. No acute intra-abdominal/pelvic process. 2. Chronic small left pleural effusion. 3. Widemouthed supra umbilical ventral hernia containing short segment of nonob structed small bowel. 4. Multiple bilateral renal cysts with a couple small indeterminate intermediat e attenuation renal lesions measuring 11 mm on the right and 7 mm in the left s tatistically most likely to represent hemorrhagic cysts although differential i ncludes neoplasm. Consider further evaluation with pre and postcontrast MRI or CT.
--- NOTE | 2023-09-30 12:34 | ECG_ITS ---
Measurements Intervals [place] Rate: 72 P: 15 DE: 182 QRS: -45 QRSD: 104 T: 35 QT: 375 QTc: 412 Interpretive Statements SINUS RHYTHM LEFT ANTERIOR FASCICULAR BLOCK ABNORMAL ECG COMPARED TO ECG 06/24/2022 12:22:44 LEFT ANTERIOR FASCICULAR BLOCK NOW PRESENT Electronically Signed On 09-30-2023 12:49:02 CDT by Tyshawn Boothe D.O.
[2023-09-30 13:03] LABS: Basophils Percent Auto 0.2 % (0.2-1.2); Eosinophils Absolute Auto 0.1 K/mm3 (0-0.3); Eosinophils Percent Auto 0.6 % (0-4.4); Hematocrit 29.8 % (42.0-52.0); Hemoglobin 10.1 g/dL (14.0-18.0); Immature Granulocyte Absolute 0.08 K/mm3 (0.00-0.031); Immature Granulocyte Percent A 0.7 % (0-0.5); Immature Platelet Fraction Pct 9.7 % (0.9-11.2); Lymphocytes Absolute Auto 0.35 K/mm3 (0.9-3.2); Lymphocytes Percent Auto 3.3 % (18.3-44.2); Mean Corpuscular HGB Conc 33.9 g/dl (32-36); Mean Corpuscular Hemoglobin 34.4 pg (26-34); Mean Corpuscular Volume 101.4 fl (80-100); Mean Platelet Volume 12.1 fl (7.4-10.4); Monocytes Absolute Auto 1.4 K/mm3 (0.1-0.6); Monocytes Percent Auto 12.8 % (2.6-8.5); Neutrophils Absolute Auto 8.8 K/mm3 (1.3-6.7); Neutrophils Percent Auto 82.4 % (45.5-73.1); Platelet Count Result 124 k/mm3 (150-375); Red Blood Count 2.94 M/mm3 (4.6-6.20); Red Cell Distribution Width 13.2 % (11.5-14.5); White Blood Count 10.7 K/mm3 (4.5-10.0)
[2023-09-30 13:13] LABS: Alanine Aminotransferase 28 U/L (6-50); Albumin Level 3.2 g/dL (3.5-5.1); Alkaline Phosphatase 123 U/L (38-126); Anion Gap 7 mmol/L (8-16); Aspartate Amino Transferase 36 U/L (17-59); Blood Urea Nitrogen 37 mg/dL (9-20); Calcium 9.1 mg/dL (8.4-10.2); Carbon Dioxide 25 mmol/L (22-30); Chloride 97 mmol/L (98-107); Estimated CRCL calculation 30 ml/min; Estimated Glomerular Filt Rate 26; Glucose 159 mg/dL (65-110); Potassium 2.9 mmol/L (3.4-5.0); Sodium 129 mmol/L (137-145)
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
[2023-09-30 14:29] LABS: Bacteria Urine None Seen /hpf; Need Manual Microscopic Reviewed; Non Pathogenic Casts 0-2; RBC Urine >100 /hpf (0-2); Squamous Epithelial Cell Urine None Seen /hpf (Few); WBC Urine 21-50 /hpf (0-3)
[2023-09-30 14:30] LABS: Appearance Urine Sl Cloudy (Clear); Color Urine Yellow (Yellow); pH Urine 5.5 (5.0-9.0)
[2023-09-30 14:31] LABS: Blood Urine 3+ (Negative); Glucose Urine UA Negative (Negative); Ketones Urine Negative (Negative); Nitrate Urine Negative (Negative); Protein Urine 2+ mg/dL (Negative)
[2023-09-30 14:32] LABS: Bilirubin Urine Negative (Negative); Leukocyte Esterase Ur Trace LEU/UL (Negative)
[2023-09-30 14:33] LABS: Add Urine Microscopic? YES
[2023-09-30 15:53] LABS: Influenza A QL RT-PCR Negative (Negative); Influenza B QL RT-PCR Negative (Negative); RSV RNA, RT-PCR Negative (Negative); SARS-CoV-2 RNA PCR Negative (Negative)
[2023-09-30] MEDS: AZITHROMYCIN 500 MG/NS 250 ML 500 MG/250 ML BAG 250 MG IVPB (17:21)
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
[2023-09-30] MEDS: POTASSIUM CHLORIDE 20 MEQ PACKET (FOR LIQUID) 40 MEQ PO (17:56)
--- NOTE | 2023-09-30 18:33 | ADMGEN ---
This patient, Darrell Mccollum, was admitted to [facility] S[facility] Room 307-02. Patient/family oriented to hospital policies and general routines including ID bracelet, bed and alarms, visiting hours, pain management, procedures, bathroom and other care routines, personal items, smoking policy, room service/diet, and visiting hours. Information on how to activate the Rapid Response Team has been discussed. Patient/Family are encouraged to report perceived risks to care and to ask questions if they do not understand what they are told or what they should do.
[2023-09-30 22:19] LABS: Anion Gap 7 mmol/L (8-16); Blood Urea Nitrogen 38 mg/dL (9-20); Calcium 9.6 mg/dL (8.4-10.2); Carbon Dioxide 28 mmol/L (22-30); Chloride 97 mmol/L (98-107); Creatine Kinase 45 U/L (55-170); Estimated CRCL calculation 30 ml/min; Estimated Glomerular Filt Rate 26; Glucose 115 mg/dL (65-110); Magnesium 2.1 mg/dL (1.6-2.3); Potassium 3.2 mmol/L (3.4-5.0); Sodium 132 mmol/L (137-145)
[2023-09-30 22:26] LABS: Procalcitonin 6.4 ng/mL
[2023-09-30 22:42] LABS: Ammonia < 9 umol/L (9-30)
[2023-09-30 22:46] LABS: CRP 32.8 mg/dL (<1.0)
[2023-09-30 23:39] LABS: Iron 30 ug/dL (49-181); Percent Iron Saturation 15 % (20-50)
[2023-10-01] VITALS (12 sets, daily range): BP systolic 111–173; BP diastolic 47–69; PULSE 64–92; RESP 18–22; TEMP 36.3–36.7; O2SAT 91–96
[2023-10-01] MEDS: SODIUM CHLORIDE 0.9% IV 1,000 ML 100 ML IV CONT ×2 (00:33→17:31)
[2023-10-01] MEDS: POTASSIUM CHLORIDE 20 MEQ ER TABLET PO (00:33)
[2023-10-01 00:37] LABS: Folic Acid > 20.0 ng/mL (2.76->20)
[2023-10-01 07:08] LABS: Hematocrit 28.9 % (42.0-52.0); Hemoglobin 9.6 g/dL (14.0-18.0); Mean Corpuscular HGB Conc 33.2 g/dl (32-36); Mean Corpuscular Hemoglobin 34.5 pg (26-34); Mean Platelet Volume 11.9 fl (7.4-10.4); Platelet Count Result 148 k/mm3 (150-375); Red Blood Count 2.78 M/mm3 (4.6-6.20); Red Cell Distribution Width 13.1 % (11.5-14.5); White Blood Count 10.8 K/mm3 (4.5-10.0)
[2023-10-01 07:19] LABS: Anion Gap 5 mmol/L (8-16); Blood Urea Nitrogen 35 mg/dL (9-20); Calcium 9.3 mg/dL (8.4-10.2); Carbon Dioxide 30 mmol/L (22-30); Chloride 97 mmol/L (98-107); Estimated CRCL calculation 32 ml/min; Estimated Glomerular Filt Rate 28; Glucose 109 mg/dL (65-110); Potassium 3.1 mmol/L (3.4-5.0); Sodium 132 mmol/L (137-145)
--- NOTE | 2023-10-01 07:58 | P.PNIM_ITS ---
Progress Note: A&P Assessment and Plan (1) Pneumonia: Code(s): J18.9 - Pneumonia, unspecified organism Status: Acute Assessment and Plan: Patchy bilateral infiltrates concerns for pneumonia versus chronic interstitial lung disease * Mild leukocytosis of 10.8 * CRP is elevated at 32 * Procalcitonin 6.4 * Pneumococcal antigen urine pending, urine Legionella pending * Blood cultures pending * Lactic normal at 1.0 * Rocephin and azithromycin for community-acquired pneumonia * Guaifenesin 1200 mg b.i.d. to thin secretions * Albuterol nebulizers Q 4 p.r.n. for shortness of breath * Incentive spirometry and pep * Out of bed during the day (2) Acute on chronic kidney failure: Code(s): N17.9 - Acute kidney failure, unspecified; N18.9 - Chronic kidney disease, unsp ecified Status: Acute Assessment and Plan: Baseline creatinine seems to run 1.8 to 2.0 * Creatinine on admission is 2.4 * Suspect elevation secondary to dehydration * Hold home Bumex * Normal saline at 100 ml per hour * Daily labs * Avoid nephrotoxic agents. Renally dose medications. (3) Electrolyte abnormality: Code(s): E87.8 - Other disorders of electrolyte and fluid balance, not elsewhere classified Status: Acute Assessment and Plan: Hyponatremia, hypokalemia * Sodium was 129 on presentation. Sodium is 132 today. Continue IV fluid * Potassium 2.9 on admission. 3.1 this morning. Replace with a total of 80 mEq oral potassium * Check magnesium (4) Macrocytic anemia: Code(s): D53.9 - Nutritional anemia, unspecified Status: Chronic Assessment and Plan: Hemoglobin 10.1, hematocrit 29.8, MCV 101, MCH 34.4 * Hemoglobin down to 9.6 today likely from hydration * Vitamin B12 is normal at 931, folate greater than 20 * Iron is low at 30, TIBC 194, 15% saturation, inferior to normal at 250 * Iron infusion and start on oral ferrous sulfate (5) Microscopic hematuria: Code(s): R31.29 - Other microscopic hematuria Status: Acute Assessment and Plan: 3+ blood on UA * CT abdomen and pelvis shows bilateral renal cyst with indeterminate renal lesions measuring 11 mm on the right and 7 mm on the left. Hemorrhagic cyst versus possible neoplasm. * MRI unable to be completed due to presence of shrapnel. I spoke with the radiologist who recommends CT abdomen w/wo contrast instead. Would recommend getting the study when his Cr is closer back to his baseline CKD. (6) Renal mass: Code(s): N28.89 - Other specified disorders of kidney and ureter Status: Acute Assessment and Plan: See above (7) Hypertension: Code(s): I10 - Essential (primary) hypertension Status: Chronic Assessment and Plan: On home agents amlodipine 10 mg, carvedilol 25 mg, losartan 100 mg, and Bumex 1 mg * 154/62, heart rate 70 * Restart home agents but holding Bumex with increased creatinine Subjective Date/time seen: 10/01/23 07:58 Interval history: This is a pleasant 78-year-old male with chronic kidney disease, hypertension, anemia, psoriatic arthritis, anemia, and history of prostate cancer who presented to the emergency department for evaluation of confusion and weakness.? Please see the H&P for further details. Interval history: 10/01/23: Darrell is seen resting in bed. He appears dyspneic at rest but he is able to speak in full sentences. He is alert and oriented x4 but he is hesitant with his responses. His Genesis is at bedside and she states he is still not back to his baseline ment
--- NOTE | 2023-10-01 07:58 | PM.IMPN ---
Progress Note: A&P Assessment and Plan (1) Pneumonia: Code(s): J18.9 - Pneumonia, unspecified organism Status: Acute Assessment and Plan: Patchy bilateral infiltrates concerns for pneumonia versus chronic interstitial lung disease Mild leukocytosis of 10.8 CRP is elevated at 32 Procalcitonin 6.4 Pneumococcal antigen urine pending, urine Legionella pending Blood cultures pending Lactic normal at 1.0 Rocephin and azithromycin for community-acquired pneumonia Guaifenesin 1200 mg b.i.d. to thin secretions Albuterol nebulizers Q 4 p.r.n. for shortness of breath Incentive spirometry and pep Out of bed during the day (2) Acute on chronic kidney failure: Code(s): N17.9 - Acute kidney failure, unspecified; N18.9 - Chronic kidney disease, unspecified Status: Acute Assessment and Plan: Baseline creatinine seems to run 1.8 to 2.0 Creatinine on admission is 2.4 Suspect elevation secondary to dehydration Hold home Bumex Normal saline at 100 ml per hour Daily labs Avoid nephrotoxic agents. Renally dose medications. (3) Electrolyte abnormality: Code(s): E87.8 - Other disorders of electrolyte and fluid balance, not elsewhere classified Status: Acute Assessment and Plan: Hyponatremia, hypokalemia Sodium was 129 on presentation. Sodium is 132 today. Continue IV fluid Potassium 2.9 on admission. 3.1 this morning. Replace with a total of 80 mEq oral potassium Check magnesium (4) Macrocytic anemia: Code(s): D53.9 - Nutritional anemia, unspecified Status: Chronic Assessment and Plan: Hemoglobin 10.1, hematocrit 29.8, MCV 101, MCH 34.4 Hemoglobin down to 9.6 today likely from hydration Vitamin B12 is normal at 931, folate greater than 20 Iron is low at 30, TIBC 194, 15% saturation, inferior to normal at 250 Iron infusion and start on oral ferrous sulfate (5) Microscopic hematuria: Code(s): R31.29 - Other microscopic hematuria Status: Acute Assessment and Plan: 3+ blood on UA CT abdomen and pelvis shows bilateral renal cyst with indeterminate renal lesions measuring 11 mm on the right and 7 mm on the left. Hemorrhagic cyst versus possible neoplasm. MRI unable to be completed due to presence of shrapnel. I spoke with the radiologist who recommends CT abdomen w/wo contrast instead. Would recommend getting the study when his Cr is closer back to his baseline CKD. (6) Renal mass: Code(s): N28.89 - Other specified disorders of kidney and ureter Status: Acute Assessment and Plan: See above (7) Hypertension: Code(s): I10 - Essential (primary) hypertension Status: Chronic Assessment and Plan: On home agents amlodipine 10 mg, carvedilol 25 mg, losartan 100 mg, and Bumex 1 mg 154/62, heart rate 70 Restart home agents but holding Bumex with increased creatinine Subjective Date/time seen: 10/01/23 07:58 Interval history: This is a pleasant 78-year-old male with chronic kidney disease, hypertension, anemia, psoriatic arthritis, anemia, and history of prostate cancer who presented to the emergency department for evaluation of confusion and weakness.? Please see the H&P for further details. Interval history: 10/01/23: Darrell is seen resting in bed. He appears dyspneic at rest but he is able to speak in full sentences. He is alert and oriented x4 but he is hesitant with his responses. His Genesis is at bedside and she states he is still not back to his baseline mentation but is improved from yesterday. He reports having a nonproductive cough and shortness of breath which is new for him. Last week he was having chills without fever. He has also had a poor appetite and has been feeling weak and fatigued. Review of Systems Review of Systems: All systems reviewed & are unremarkable except as noted in HPI and below Exam Narrative: General: appears dyspneic, well develop
[2023-10-01 08:00] LABS: Glucose Point of Care 102 mg/dl (65-105)
[2023-10-01] MEDS: FERROUS SULFATE 325 MG TABLET DR PO (09:46)
[2023-10-01] MEDS: busPIRone HCL 5 MG TABLET 15 MG PO ×2 (09:46→17:33)
[2023-10-01] MEDS: LOSARTAN POTASSIUM 100 MG TABLET PO (09:46)
[2023-10-01] MEDS: sulfaSALAzine 500 MG TABLET PO ×2 (09:46→17:32)
[2023-10-01] MEDS: POTASSIUM CHLORIDE 20 MEQ ER TABLET 40 MEQ PO ×2 (09:46→11:53)
[2023-10-01] MEDS: FOLIC ACID 1 MG TABLET PO (09:46)
[2023-10-01] MEDS: guaiFENesin 12 HR 600 MG TABCR 1200 MG PO ×2 (09:46→20:36)
[2023-10-01] MEDS: amLODIPine BESYLATE 5 MG TABLET 10 MG PO ×2 (09:46→17:33)
[2023-10-01] MEDS: DULoxetine HCL 60 MG CAPSULE.DR PO (09:47)
[2023-10-01] MEDS: DOCUSATE SODIUM 100 MG CAPSULE PO ×2 (09:47→17:32)
[2023-10-01] MEDS: carvediloL 25 MG TABLET PO ×2 (09:47→17:32)
[2023-10-01] MEDS: CHOLECALCIFEROL 1,000 UNITS TABLET 1000 UNITS PO (09:47)
[2023-10-01 10:25] LABS: Magnesium 2.1 mg/dL (1.6-2.3)
[2023-10-01] MEDS: IRON SUCROSE COMPLEX 300 MG in SODIUM CHLORIDE 0.9% IV 250 ML 177 MG IVPB (11:54)
[2023-10-01] MEDS: AZITHROMYCIN 500 MG/NS 250 ML 500 MG/250 ML BAG 250 MG IVPB (17:27)
[2023-10-02] VITALS (12 sets, daily range): BP systolic 91–163; BP diastolic 28–86; PULSE 63–88; RESP 18–22; TEMP 35.9–37.1; O2SAT 93–97
[2023-10-02 07:33] LABS: Basophils Percent Auto 0.3 % (0.2-1.2); Eosinophils Absolute Auto 0.1 K/mm3 (0-0.3); Eosinophils Percent Auto 0.5 % (0-4.4); Hematocrit 30.5 % (42.0-52.0); Immature Granulocyte Absolute 0.36 K/mm3 (0.00-0.031); Immature Granulocyte Percent A 2.8 % (0-0.5); Lymphocytes Absolute Auto 0.82 K/mm3 (0.9-3.2); Lymphocytes Percent Auto 6.4 % (18.3-44.2); Mean Corpuscular HGB Conc 32.8 g/dl (32-36); Mean Corpuscular Hemoglobin 34.2 pg (26-34); Mean Corpuscular Volume 104.5 fl (80-100); Mean Platelet Volume 11.6 fl (7.4-10.4); Monocytes Absolute Auto 1.2 K/mm3 (0.1-0.6); Monocytes Percent Auto 9.1 % (2.6-8.5); Neutrophils Absolute Auto 10.4 K/mm3 (1.3-6.7); Neutrophils Percent Auto 80.9 % (45.5-73.1); Platelet Count Result 193 k/mm3 (150-375); Red Blood Count 2.92 M/mm3 (4.6-6.20); Red Cell Distribution Width 13.3 % (11.5-14.5); White Blood Count 12.8 K/mm3 (4.5-10.0)
[2023-10-02 07:51] LABS: Alanine Aminotransferase 34 U/L (6-50); Albumin Level 3.4 g/dL (3.5-5.1); Alkaline Phosphatase 153 U/L (38-126); Anion Gap 6 mmol/L (4-12); Aspartate Amino Transferase 42 U/L (17-59); Bilirubin,Total 0.8 mg/dL (0.2-1.3); Blood Urea Nitrogen 32 mg/dL (9-20); Calcium 9.9 mg/dL (8.4-10.2); Carbon Dioxide 29 mmol/L (22-30); Chloride 99 mmol/L (98-107); Estimated CRCL calculation 32 ml/min; Estimated Glomerular Filt Rate 28; Glucose 111 mg/dL (65-110); Magnesium 2.1 mg/dL (1.6-2.3); Potassium 3.6 mmol/L (3.4-5.0); Sodium 134 mmol/L (137-145)
[2023-10-02 07:55] LABS: NT Pro B Type Natriuretic Pept 6450 pg/mL (19.9-100)
[2023-10-02] MEDS: DOCUSATE SODIUM 100 MG CAPSULE PO ×2 (08:56→16:49)
[2023-10-02] MEDS: LOSARTAN POTASSIUM 100 MG TABLET PO (08:56)
[2023-10-02] MEDS: CHOLECALCIFEROL 1,000 UNITS TABLET 1000 UNITS PO (08:56)
[2023-10-02] MEDS: busPIRone HCL 5 MG TABLET 15 MG PO ×2 (08:56→16:49)
[2023-10-02] MEDS: DULoxetine HCL 60 MG CAPSULE.DR PO (08:56)
[2023-10-02] MEDS: FERROUS SULFATE 325 MG TABLET DR PO (08:56)
[2023-10-02] MEDS: sulfaSALAzine 500 MG TABLET PO ×2 (08:57→17:17)
[2023-10-02] MEDS: guaiFENesin 12 HR 600 MG TABCR 1200 MG PO ×2 (08:57→20:24)
[2023-10-02] MEDS: FOLIC ACID 1 MG TABLET PO (08:58)
[2023-10-02] MEDS: carvediloL 25 MG TABLET PO ×2 (08:58→16:49)
[2023-10-02] MEDS: amLODIPine BESYLATE 5 MG TABLET 10 MG PO ×2 (08:58→16:49)
--- NOTE | 2023-10-02 14:50 | P.PNIM_ITS ---
Progress Note: A&P Assessment and Plan (1) Pneumonia: Code(s): J18.9 - Pneumonia, unspecified organism Status: Acute Assessment and Plan: Patchy bilateral infiltrates concerns for pneumonia versus chronic interstitial lung disease * Mild leukocytosis of 10.8 * CRP is elevated at 32 * Procalcitonin 6.4 * Pneumococcal antigen urine pending, urine Legionella pending * Blood cultures pending * Lactic normal at 1.0 * Transitioned to Augmentin and azithromycin * Guaifenesin 1200 mg b.i.d. to thin secretions * Albuterol nebulizers Q 4 p.r.n. for shortness of breath * Incentive spirometry and pep * Out of bed during the day (2) Acute on chronic kidney failure: Code(s): N17.9 - Acute kidney failure, unspecified; N18.9 - Chronic kidney disease, unspecified Status: Acute Assessment and Plan: Baseline creatinine seems to run 1.8 to 2.0 * Creatinine today is 2.3 * Suspect elevation secondary to dehydration * Hold home Bumex * Daily labs * Avoid nephrotoxic agents. Renally dose medications. (3) Electrolyte abnormality: Code(s): E87.8 - Other disorders of electrolyte and fluid balance, not elsewhere classified Status: Acute Assessment and Plan: Hyponatremia, hypokalemia * Sodium was 134 today * Potassium 3.6 * magnesium 2.1 (4) Macrocytic anemia: Code(s): D53.9 - Nutritional anemia, unspecified Status: Chronic Assessment and Plan: Hemoglobin 10.1, hematocrit 29.8, MCV 101, MCH 34.4 * Hemoglobin down to 10 today * Vitamin B12 is normal at 931, folate greater than 20 * Iron is low at 30, TIBC 194, 15% saturation, inferior to normal at 250 * oral ferrous sulfate (5) Microscopic hematuria: Code(s): R31.29 - Other microscopic hematuria Status: Acute Assessment and Plan: 3+ blood on UA * CT abdomen and pelvis shows bilateral renal cyst with indeterminate renal lesions measuring 11 mm on the right and 7 mm on the left. Hemorrhagic cyst versus possible neoplasm. * MRI unable to be completed due to presence of shrapnel. I spoke with the radiologist who recommends CT abdomen w/wo contrast instead. Would recommend getting the study when his Cr is closer back to his baseline CKD. (6) Renal mass: Code(s): N28.89 - Other specified disorders of kidney and ureter Status: Acute Assessment and Plan: See above (7) Hypertension: Code(s): I10 - Essential (primary) hypertension Status: Chronic Assessment and Plan: On home agents amlodipine 10 mg, carvedilol 25 mg, losartan 100 mg, and Bumex 1 mg * continue home agents but holding Bumex with increased creatinine Subjective Date/time seen: 10/02/23 14:50 Interval history: This is a pleasant 78-year-old male with chronic kidney disease, hypertension, anemia, psoriatic arthritis, anemia, and history of prostate cancer who presented to the emergency department for evaluation of confusion and weakness.? Please see the H&P for further details. Patient resting in bed in no acute distress. He is alert and oriented x3 but odd. He denies complaints this morning. Will transition to PO AB for pneumonia with UTI coverage until cultures finalize. His kidney function is not to where we can obtain a CT yet. Electrolytes have stabilized, will continue to monitor. Review of Systems Review of Systems: All systems reviewed & are unremarkable except as noted in HPI and below ROS unobtainable: Yes unobtainable due to mental status Exam Na
--- NOTE | 2023-10-02 14:50 | PM.IMPN ---
Progress Note: A&P Assessment and Plan (1) Pneumonia: Code(s): J18.9 - Pneumonia, unspecified organism Status: Acute Assessment and Plan: Patchy bilateral infiltrates concerns for pneumonia versus chronic interstitial lung disease Mild leukocytosis of 10.8 CRP is elevated at 32 Procalcitonin 6.4 Pneumococcal antigen urine pending, urine Legionella pending Blood cultures pending Lactic normal at 1.0 Transitioned to Augmentin and azithromycin Guaifenesin 1200 mg b.i.d. to thin secretions Albuterol nebulizers Q 4 p.r.n. for shortness of breath Incentive spirometry and pep Out of bed during the day (2) Acute on chronic kidney failure: Code(s): N17.9 - Acute kidney failure, unspecified; N18.9 - Chronic kidney disease, unspecified Status: Acute Assessment and Plan: Baseline creatinine seems to run 1.8 to 2.0 Creatinine today is 2.3 Suspect elevation secondary to dehydration Hold home Bumex Daily labs Avoid nephrotoxic agents. Renally dose medications. (3) Electrolyte abnormality: Code(s): E87.8 - Other disorders of electrolyte and fluid balance, not elsewhere classified Status: Acute Assessment and Plan: Hyponatremia, hypokalemia Sodium was 134 today Potassium 3.6 magnesium 2.1 (4) Macrocytic anemia: Code(s): D53.9 - Nutritional anemia, unspecified Status: Chronic Assessment and Plan: Hemoglobin 10.1, hematocrit 29.8, MCV 101, MCH 34.4 Hemoglobin down to 10 today Vitamin B12 is normal at 931, folate greater than 20 Iron is low at 30, TIBC 194, 15% saturation, inferior to normal at 250 oral ferrous sulfate (5) Microscopic hematuria: Code(s): R31.29 - Other microscopic hematuria Status: Acute Assessment and Plan: 3+ blood on UA CT abdomen and pelvis shows bilateral renal cyst with indeterminate renal lesions measuring 11 mm on the right and 7 mm on the left. Hemorrhagic cyst versus possible neoplasm. MRI unable to be completed due to presence of shrapnel. I spoke with the radiologist who recommends CT abdomen w/wo contrast instead. Would recommend getting the study when his Cr is closer back to his baseline CKD. (6) Renal mass: Code(s): N28.89 - Other specified disorders of kidney and ureter Status: Acute Assessment and Plan: See above (7) Hypertension: Code(s): I10 - Essential (primary) hypertension Status: Chronic Assessment and Plan: On home agents amlodipine 10 mg, carvedilol 25 mg, losartan 100 mg, and Bumex 1 mg continue home agents but holding Bumex with increased creatinine Subjective Date/time seen: 10/02/23 14:50 Interval history: This is a pleasant 78-year-old male with chronic kidney disease, hypertension, anemia, psoriatic arthritis, anemia, and history of prostate cancer who presented to the emergency department for evaluation of confusion and weakness.? Please see the H&P for further details. Patient resting in bed in no acute distress. He is alert and oriented x3 but odd. He denies complaints this morning. Will transition to PO AB for pneumonia with UTI coverage until cultures finalize. His kidney function is not to where we can obtain a CT yet. Electrolytes have stabilized, will continue to monitor. Review of Systems Review of Systems: All systems reviewed & are unremarkable except as noted in HPI and below ROS unobtainable: Yes unobtainable due to mental status Exam Narrative: General: well developed, well nourished, appears stated age. HEENT: normocephalic, atraumatic. EOMI, PERRLA, Neck supple. Respiratory: Diminished and coarse to auscultation to bilateral bases. No rales/rhonic/wheezes. Cardiovascular: RRR, normal S1-S2. Abdomen: Soft, round, non-distended and non-tender. BS present Extremities: No cyanosis, clubbing, or edema present. Pulses are palpable 2/2. Neuro: Alert and orientated x 3. Cranial nerves 2-12 intac
[2023-10-02] MEDS: AMOXICILLIN/CLAVULANATE K 875-125 MG TAB 1 TABLET PO (18:29)
[2023-10-02] MEDS: AZITHROMYCIN 250 MG TABLET 500 MG PO (18:29)
[2023-10-02] MEDS: SODIUM CHLORIDE 0.9% IV 1,000 ML 100 ML IV CONT (20:25)
[2023-10-02] MEDS: ACETAMINOPHEN 325 MG TABLET 650 MG PO (22:48)
[2023-10-03 05:19] VITALS: BP 116/104; PULSE 86; RESP 18; TEMP 36.9; O2SAT 93
[2023-10-03] MEDS: SODIUM CHLORIDE 0.9% IV 1,000 ML 100 ML IV CONT (06:34)
[2023-10-03 07:53] LABS: Basophils Percent Auto 0.3 % (0.2-1.2); Eosinophils Absolute Auto 0.1 K/mm3 (0-0.3); Eosinophils Percent Auto 1.5 % (0-4.4); Hematocrit 28.2 % (42.0-52.0); Hemoglobin 9.2 g/dL (14.0-18.0); Immature Granulocyte Absolute 0.39 K/mm3 (0.00-0.031); Immature Granulocyte Percent A 4.1 % (0-0.5); Lymphocytes Absolute Auto 1.01 K/mm3 (0.9-3.2); Lymphocytes Percent Auto 10.7 % (18.3-44.2); Mean Corpuscular HGB Conc 32.6 g/dl (32-36); Mean Corpuscular Hemoglobin 34.5 pg (26-34); Mean Corpuscular Volume 105.6 fl (80-100); Mean Platelet Volume 11.5 fl (7.4-10.4); Monocytes Absolute Auto 1.1 K/mm3 (0.1-0.6); Monocytes Percent Auto 11.4 % (2.6-8.5); Neutrophils Absolute Auto 6.8 K/mm3 (1.3-6.7); Platelet Count Result 192 k/mm3 (150-375); Red Blood Count 2.67 M/mm3 (4.6-6.20); Red Cell Distribution Width 13.7 % (11.5-14.5); White Blood Count 9.5 K/mm3 (4.5-10.0)
[2023-10-03 08:00] VITALS: PULSE 81; O2SAT 99
[2023-10-03 08:11] LABS: Alanine Aminotransferase 27 U/L (6-50); Albumin Level 3.1 g/dL (3.5-5.1); Alkaline Phosphatase 130 U/L (38-126); Anion Gap 7 mmol/L (4-12); Aspartate Amino Transferase 33 U/L (17-59); Bilirubin,Total 0.6 mg/dL (0.2-1.3); Blood Urea Nitrogen 29 mg/dL (9-20); Calcium 9.4 mg/dL (8.4-10.2); Carbon Dioxide 27 mmol/L (22-30); Chloride 103 mmol/L (98-107); Estimated CRCL calculation 31 ml/min; Estimated Glomerular Filt Rate 28; Glucose 112 mg/dL (65-110); Potassium 4.2 mmol/L (3.4-5.0); Sodium 137 mmol/L (137-145)
[2023-10-03 08:36] VITALS: BP 145/64; PULSE 81; TEMP 36.4; O2SAT 99
[2023-10-03] MEDS: FOLIC ACID 1 MG TABLET PO (08:40)
[2023-10-03] MEDS: sulfaSALAzine 500 MG TABLET PO (08:41)
[2023-10-03] MEDS: guaiFENesin 12 HR 600 MG TABCR 1200 MG PO (08:41)
[2023-10-03] MEDS: DOCUSATE SODIUM 100 MG CAPSULE PO (08:41)
[2023-10-03 08:42] VITALS: PULSE 81
[2023-10-03] MEDS: AMOXICILLIN/CLAVULANATE K 875-125 MG TAB 1 TABLET PO (08:42)
[2023-10-03] MEDS: CHOLECALCIFEROL 1,000 UNITS TABLET 1000 UNITS PO (08:42)
[2023-10-03] MEDS: busPIRone HCL 5 MG TABLET 15 MG PO (08:42)
[2023-10-03] MEDS: FERROUS SULFATE 325 MG TABLET DR PO (08:42)
[2023-10-03] MEDS: carvediloL 25 MG TABLET PO (08:42)
[2023-10-03] MEDS: DULoxetine HCL 60 MG CAPSULE.DR PO (08:42)
[2023-10-03] MEDS: amLODIPine BESYLATE 5 MG TABLET 10 MG PO (08:42)
[2023-10-03] MEDS: LOSARTAN POTASSIUM 100 MG TABLET PO (08:48)
[2023-10-03 09:10] LABS: Platelet Estimate Adequate (Adequate); Schistocytes None Seen
[2023-10-03 12:49] LABS: Mycoplasma IgM Antibody Titer 21 U/mL (<770)
[2023-10-03 14:00] VITALS: BP 146/84; PULSE 66; RESP 20; TEMP 36.6; O2SAT 93
[2023-10-03] MEDS: AZITHROMYCIN 250 MG TABLET 500 MG PO (15:35)
--- NOTE | 2023-10-03 15:54 | PM.DS ---
DS: Admitting Diagnosis Discharge Date 10/03/23 Admitting Diagnosis confusion and weakness DS: Discharge Diagnosis Discharge Diagnosis (1) Pneumonia: Code(s): J18.9 - Pneumonia, unspecified organism Status: Acute (2) Acute on chronic kidney failure: Code(s): N17.9 - Acute kidney failure, unspecified; N18.9 - Chronic kidney disease, unspecified Status: Acute (3) Electrolyte abnormality: Code(s): E87.8 - Other disorders of electrolyte and fluid balance, not elsewhere classified Status: Acute (4) Macrocytic anemia: Code(s): D53.9 - Nutritional anemia, unspecified Status: Chronic (5) Microscopic hematuria: Code(s): R31.29 - Other microscopic hematuria Status: Acute (6) Renal mass: Code(s): N28.89 - Other specified disorders of kidney and ureter Status: Acute (7) Hypertension: Code(s): I10 - Essential (primary) hypertension Status: Chronic DS: Summary Hospital Course Hospital Course: Patient is a 78-year-old male with PMH of chronic kidney disease, hypertension, anemia, psoriatic arthritis, anemia, and history of prostate cancer admitted for evaluation of confusion and weakness. Initial labs were significant for a WBC count of 10.7, hemoglobin 10.1, MCV 101.4, platelet 124, sodium 129, potassium 2.9, chloride 97, BUN 37, creatinine 2.40, glucose 159. Urine was positive for 2+ protein, 3+ blood, trace leukocyte esterase, greater than 100 RBC, 21 to [address] showed no acute process. CT of the abdomen and pelvis showed no acute intra-abdominal or pelvic process, chronic small left pleural effusion, wide mild supraumbilical ventral hernia, multiple bilateral renal cyst, dependent atelectasis in the lower lobes with mild bronchiectasis in the right lower lobe. Chest x-ray showed patchy bilateral infiltrates which may represent a combination of pneumonia and/or chronic interstitial lung disease. He was treated for PNA and UTI showing E. Coli and transitioned to PO Augmentin, completed course of azithromycin prior to d/c. He is going home with his . Discussed prompt follow up with PCP, repeat CMP in 1 week to monitor electrolytes and kidney function and encouraged PT outpatient. BC pending with no growth to date. Unable to obtain CT with contrast due to kidney function, however in reviewing previous CT scan from 06/28, the results were unchanged from previous imaging. Can get this done outpatient when able to receive contrast at PCP discretion. Status at Discharge Functional status at discharge: independent ambulation Overall status at discharge: patient is back to baseline Time Spent with Patient Time attestation: Total time spent providing and/or coordinating discharge services: Exam Narrative: General: well developed, well nourished, appears stated age. HEENT: normocephalic, atraumatic. EOMI, PERRLA, Neck supple. Respiratory: Clear to auscultation to bilateral bases. No rales/rhonic/wheezes. Cardiovascular: RRR, normal S1-S2. Abdomen: Soft, round, non-distended and non-tender. BS present Extremities: No cyanosis, clubbing, or edema present. Pulses are palpable 2/2. Neuro: Alert and orientated x 3. Cranial nerves 2-12 intact without focal deficit. Skin: Warm, dry, and intact, without rash, erythema, or lesion. Psych: cooperative, normal speech DS: Data Data Completed and Pending Labs on day of discharge: Labs from last 24 hours 10/03/23 09/30/23 07:29 22:22 WBC 9.5 RBC 2.67 L Hgb 9.2 L Hct 28.2 L MCV 105.6 H MCH 34.5 H MCHC 32.6 RDW 13.7 Plt Count 192 MPV 11.5 H Immature Gran % (Auto) 4.1 H Neut % (Auto) 72.0 Lymph % (Auto) 10.7 L [place] % (Auto) 11.4 H Eos % (Auto) 1.5 Baso % (Auto) 0.3 Lymph # (Auto) 1.01 [place] # (Auto) 1.1 H Eos # (Auto) 0.1 Baso # (Auto) 0.0 Abs Immat Gran (auto) 0.39 H Absolute Neuts (auto) 6.8 H Absolute Nucleated RBC 0.000 Nucleated RBC %
[2023-10-04 00:48] LABS: Legionella pneumophila Ag Ur Not Detected (Not Detected)
[2023-10-04 17:36] LABS: Pneumococcal Antigen Urine Not Detected (Not Detected)
== END 2023-10-03 16:30 | disposition home or self-care (01) | DRG 689 ==
LOC: ANHED 17:11 → ANH3MEDSUR 18:05
PROVIDERS: Nurse Practitioner Acute Care; Physician Assistant; Admitting Provider Internal Medicine; Emergency Provider Emergency Medicine; Visit Provider Nurse Practitioner
DX: N39.0 Urinary tract infection, site not specified (principal); J18.9 Pneumonia, unspecified organism; E87.1 Hypo-osmolality and hyponatremia; N17.9 Acute kidney failure, unspecified; I12.9 Hypertensive chronic kidney disease with stage 1 through stage 4 chronic kidney disease, or unspecified chronic kidney disease; N18.30 Chronic kidney disease, stage 3 unspecified; E87.6 Hypokalemia; D53.9 Nutritional anemia, unspecified; D69.59 Other secondary thrombocytopenia; T50.905A Adverse effect of unspecified drugs, medicaments and biological substances, initial encounter; N28.1 Cyst of kidney, acquired; K43.9 Ventral hernia without obstruction or gangrene; L40.50 Arthropathic psoriasis, unspecified; B96.20 Unspecified Escherichia coli [E. coli] as the cause of diseases classified elsewhere; F41.9 Anxiety disorder, unspecified; Z20.822 Contact with and (suspected) exposure to COVID-19; Z85.46 Personal history of malignant neoplasm of prostate; Z90.79 Acquired absence of other genital organ(s); Z87.891 Personal history of nicotine dependence
CPT/HCPCS: 36415; 70450; 71046; 74176; 80048; 80053; 81001; 82140; 82550; 82607; 82728; 82746; 82948; 83540; 83550; 83605; 83735; 83880; 84145; 84443; 85025; 85027; 85055; 86140; 86738; 87040; 87077; 87086; 87088; 87186; 87449; 87637; 87899; 93005; 94667; 96365; 96367; 97110; 97116; 97161; 97165; 97530; 97535; 99285; A9270; G0378; J0456; J0696; J1756; J7030; J7050

== ENCOUNTER 2023-11-14 10:39 | Outpatient (RCR) | payer MEDICARE, SELFPAY ==
[2023-11-14 11:41] VITALS: BMI 35.9
[2023-11-14 11:49] VITALS: BMI 35.9
== END 2024-02-03 09:33 | disposition home or self-care (01) ==
LOC: ANHDMC 10:39
PROVIDERS: PCP Family Medicine; Visit Provider Family Medicine
DX: N18.32 Chronic kidney disease, stage 3b (principal); Z71.3 Dietary counseling and surveillance
CPT/HCPCS: 97802

== ENCOUNTER 2024-08-27 11:37 | Outpatient (CLI) | payer MEDICARE, SELFPAY ==
--- NOTE | ~2024-08-27 | XR_ITS ---
AP and lateral views of the right hip Clinical history: Pain Findings: No acute fracture or dislocation is seen. Osseous alignment is anatomic. Right hip joint is intact. There is degenerative spondylosis of the visualized lower lumbar spine. There is degenerativ e change of both SI joints. Soft tissues are unremarkable. Impression: Right hip joint intact. Other degenerative changes, as above. Reviewed, dictated and finalized at location . [employer] Impression: Right hip joint intact. Other degenerative changes, as above.
== END 2024-08-27 11:38 | disposition home or self-care (01) ==
LOC: MICIMG 11:38
PROVIDERS: PCP Family Medicine; Visit Provider Nurse Practitioner Adult Health
DX: M47.816 Spondylosis without myelopathy or radiculopathy, lumbar region (principal); M47.898 Other spondylosis, sacral and sacrococcygeal region
CPT/HCPCS: 73502

== ENCOUNTER 2025-01-21 10:47 | Outpatient (CLI) | payer MEDICARE, SELFPAY ==
--- NOTE | ~2025-01-21 | US_ITS ---
Renal-Bladder ultrasound Clinical History: Chronic kidney disease Technique: Real-time sonographic imaging of the kidneys and urinary bladder was performed. Findings: The right kidney measures 7.3 cm in length and the left kidney measures 12.4 cm. There is n o hydronephrosis or renal calculus identified. Renal cortical echogenicity is within normal limits. B ilateral renal cysts are present. The urinary bladder is relatively collapsed, limiting evaluation. Impression: Bilateral renal cysts. Right kidney measures significantly smaller than left, possibly due to suboptimal visualization. Reviewed, dictated and finalized at location M. Impression: Bilateral renal cysts. Right kidney measures significantly smaller than left, possibly due to suboptim al visualization.
== END 2025-01-21 10:48 | disposition home or self-care (01) ==
LOC: MICIMG 10:48
PROVIDERS: PCP Family Medicine; Visit Provider Internal Medicine Nephrology
DX: N18.32 Chronic kidney disease, stage 3b (principal)
CPT/HCPCS: 76775

== ENCOUNTER 2025-01-21 11:21 | Outpatient (CLI) | payer MEDICARE, SELFPAY ==
[2025-01-21 12:31] LABS: Hematocrit 32.0 % (42.0-52.0); Hemoglobin 10.5 g/dL (14.0-18.0); Mean Corpuscular HGB Conc 32.8 g/dl (32-36); Mean Corpuscular Hemoglobin 34.9 pg (26-34); Mean Corpuscular Volume 106.3 fl (80-100); Platelet Count Result 177 k/mm3 (150-375); Red Blood Count 3.01 M/mm3 (4.6-6.20); White Blood Count 5.7 K/mm3 (4.5-10.0)
[2025-01-21 12:50] LABS: Albumin Level 3.8 g/dL (3.5-5.1); Anion Gap 7 mmol/L (4-12); Blood Urea Nitrogen 32 mg/dL (9-20); Calcium 9.6 mg/dL (8.4-10.2); Carbon Dioxide 27 mmol/L (22-30); Chloride 104 mmol/L (98-107); Creatine Kinase 59 U/L (55-170); Estimated Glomerular Filt Rate 24; Glucose 88 mg/dL (65-110); Potassium 3.9 mmol/L (3.4-5.0); Sodium 138 mmol/L (137-145)
[2025-01-21 13:03] LABS: Parathyroid Intact 160.9 pg/mL (14.5-75.2)
[2025-01-25 13:08] LABS: Immunoglobulin A, Qn 277 mg/dL (61-437); Immunoglobulin G, Qn 881 mg/dL (603-1613); Immunoglobulin M, Qn 63 mg/dL (15-143)
== END 2025-01-21 11:22 | disposition home or self-care (01) ==
PROVIDERS: PCP Family Medicine; Visit Provider Internal Medicine Nephrology
DX: N18.32 Chronic kidney disease, stage 3b (principal)
CPT/HCPCS: 36415; 80069; 82550; 82784; 83970; 85027; 85652; 86160; 86162; 86334

== ENCOUNTER 2025-01-28 14:12 | Outpatient (CLI) | payer MEDICARE, SELFPAY ==
[2025-01-28 14:31] LABS: Add Urine Microscopic? YES; Appearance Urine Clear (Clear); Glucose Urine UA Negative (Negative); Leukocyte Esterase Ur Negative LEU/UL (Negative); Nitrate Urine Negative (Negative); Non Pathogenic Casts 0-2; Specific Grav Ur 1.005 (1.001-1.035)
[2025-01-28 16:01] LABS: Total Volume 24 Hour Urine 900 ml
[2025-01-28 16:59] LABS: Total Protein Urine Random 53 mg/dL; Ur Ttl Prot Creatinine Ratio 2.41 mg/mg (0-0.20)
== END 2025-01-28 14:13 | disposition home or self-care (01) ==
LOC: ANHLAB 14:13
PROVIDERS: PCP Family Medicine; Visit Provider Internal Medicine Nephrology
DX: N18.32 Chronic kidney disease, stage 3b (principal)
CPT/HCPCS: 81001; 81050; 82570; 84156; 84540; 86335

== ENCOUNTER 2025-04-13 10:37 | Emergency (ER) | payer MEDICARE, SELFPAY ==
--- NOTE | ~2025-04-13 | XR_ITS ---
EXAMINATION: XR hip RT 2V w AP pelvis, 04/13/2025 11:30 CDT HISTORY: RIGHT SIDE PAIN AFTER FALL COMPARISON: No comparisons available. Findings: Fixation left femur, no fracture identified. Moderate degenerative changes. Soft tissues unremarkable. Impression: No acute fracture or malalignment. Reviewed, dictated and finalized at location P. Impression: No acute fracture or malalignment.
[2025-04-13 10:36] VITALS: BP 154/76; PULSE 62; RESP 16; TEMP 36.6; O2SAT 97
[2025-04-13 11:13] LABS: Hematocrit 30.6 % (42.0-52.0); Hemoglobin 10.1 g/dL (14.0-18.0); Immature Granulocyte Percent A 0.3 % (0-0.5); Lymphocytes Absolute Auto 0.83 K/mm3 (0.9-3.2); Mean Corpuscular HGB Conc 33.0 g/dl (32-36); Mean Corpuscular Hemoglobin 35.2 pg (26-34); Mean Corpuscular Volume 106.6 fl (80-100); Nucleated Red Blood Cells Absolute Auto 0.000 K/mm3 (0.0-0.012); Nucleated Red Blood Cells Perc 0.0 % (0.0-0.2); Platelet Count Result 157 k/mm3 (150-375); Red Blood Count 2.87 M/mm3 (4.6-6.20); White Blood Count 7.0 K/mm3 (4.5-10.0)
[2025-04-13 11:15] VITALS: BP 143/95; O2SAT 99
[2025-04-13 11:17] VITALS: BP 166/71; O2SAT 97
[2025-04-13 11:27] LABS: Alanine Aminotransferase 14 U/L (6-50); Albumin Level 4.0 g/dL (3.5-5.1); Alkaline Phosphatase 66 U/L (38-126); Anion Gap 7 mmol/L (4-12); Aspartate Amino Transferase 27 U/L (17-59); Bilirubin,Total 0.6 mg/dL (0.2-1.3); Blood Urea Nitrogen 34 mg/dL (9-20); Calcium 9.6 mg/dL (8.4-10.2); Carbon Dioxide 28 mmol/L (22-30); Chloride 104 mmol/L (98-107); Estimated CRCL calculation 30 ml/min; Estimated Glomerular Filt Rate 29; Glucose 122 mg/dL (65-110); Potassium 3.8 mmol/L (3.4-5.0); Sodium 139 mmol/L (137-145); Total Protein 6.9 g/dL (6.3-8.2)
[2025-04-13 11:32] LABS: INR 1.1; Prothrombin Time 14.3 Seconds (11.1-14.7)
[2025-04-13] MEDS: MORPHINE SULFATE (*CRX) 4 MG/ML INJ 2 MG IV PUSH (11:34)
[2025-04-13] MEDS: ONDANSETRON INJ 4 MG/2 ML VIAL IV PUSH (11:34)
[2025-04-13 11:36] LABS: Macrocytosis 1+ (NORMAL); Schistocytes None Seen
[2025-04-13 11:47] VITALS: BP 154/78; PULSE 76; RESP 20; O2SAT 97
[2025-04-13 12:02] VITALS: BP 174/77; O2SAT 97
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
[2025-04-13 13:04] VITALS: BP 169/66; PULSE 89; RESP 20; O2SAT 98
== END 2025-04-13 13:05 | disposition home or self-care (01) ==
PROVIDERS: Emergency Provider Family Medicine; PCP Family Medicine
DX: S70.01XA Contusion of right hip, initial encounter (principal); I12.9 Hypertensive chronic kidney disease with stage 1 through stage 4 chronic kidney disease, or unspecified chronic kidney disease; N18.30 Chronic kidney disease, stage 3 unspecified; F03.90 Unspecified dementia, unspecified severity, without behavioral disturbance, psychotic disturbance, mood disturbance, and anxiety; L40.50 Arthropathic psoriasis, unspecified; F43.10 Post-traumatic stress disorder, unspecified; Z87.440 Personal history of urinary (tract) infections; Z87.891 Personal history of nicotine dependence; Z85.46 Personal history of malignant neoplasm of prostate; Z90.79 Acquired absence of other genital organ(s); Z79.818 Long term (current) use of other agents affecting estrogen receptors and estrogen levels; Z79.620 Long term (current) use of immunosuppressive biologic; Z79.899 Other long term (current) drug therapy
CPT/HCPCS: 36415; 73502; 80053; 85025; 85610; 96374; 96375; 99284; J2270; J2405

== ENCOUNTER 2025-04-19 15:26 | Outpatient (CLI) | payer MEDICARE, SELFPAY ==
--- NOTE | ~2025-04-19 | XR_ITS ---
EXAMINATION: XR femur RT min 2V, 04/19/2025 15:35 CDT HISTORY: S89.90XA - Unspecified injury of unspecified lower leg, i... COMPARISON: No comparisons available. Findings: No acute fracture or malalignment. Moderate degenerative changes Soft tissues unremarkable. Impression: No acute fracture or malalignment. Reviewed, dictated and finalized at location P. Impression: No acute fracture or malalignment.
== END 2025-04-19 15:27 | disposition home or self-care (01) ==
LOC: MICIMG 15:31
PROVIDERS: PCP Family Medicine; Visit Provider Nurse Practitioner Family
DX: M19.09 Primary osteoarthritis, other specified site (principal); S89.90XA Unspecified injury of unspecified lower leg, initial encounter; X58.XXXA Exposure to other specified factors, initial encounter
CPT/HCPCS: 73552

== ENCOUNTER 2025-05-03 12:54 | Outpatient (CLI) | payer MEDICARE, SELFPAY ==
--- NOTE | ~2025-05-03 | CT_ITS ---
EXAMINATION: CT pelvis wo con, CT hip RT wo con DATE: 05/03/2025 13:16 INDICATION: Right hip pain TECHNIQUE: 1. Computed tomography (CT) of the pelvis was performed without intravenous contrast. Additional sagittal and coronal reconstructions were performed. Automated exposure control and iterative reconstruction technique were employed. The dose-length product was 636.83 mGy-cm. 2. CT of the right hip was performed without intravenous contrast. Additional sagittal and coronal reconstructions were performed. Automated exposure control and iterative reconstruction technique were employed. The dose-length product was 472.29 mGy-cm. COMPARISON: Radiographs dated 04/13/[address] dated 09/30/2023. FINDINGS: The septa 5 mm distraction of an acute avulsion fracture involving the posterior aspect of the right greater trochanter. No evident extension of the fracture across the weightbearing axis of the proximal right femur. Old healed intertrochanteric fracture of the proximal left femur which is fixed with an antegrade intramedullary misty and femoral neck dynamic compression screw. There is linear sclerosis extending across the anterosuperior, superior and superolateral aspect of the left femoral head consistent with osteonecrosis which has developed since the prior CT. Stable appearance of a mixed lytic and sclerotic pattern at the bilateral sacral ala and the immediately adjacent ileum located lateral to the inferior aspect of both the left and right sacroiliac joints also suspicious for osteonecrosis potentially related to prior radiation treatment. Mild to moderate osteoarthritis at the bilateral sacroiliac joints and mild osteoarthritis at the bilateral hip joints. Severe lumbosacral spondylosis with mild disc height loss and severe facet osteoarthritis bilaterally at L4-L5. Postoperative change of prior prostatectomy with surgical clips versus fiducial markers are brachytherapy seeds at the prostatectomy bed. Age-indeterminate elevation of the left testis above level of the scrotum but still caudal to a small fat-containing indirect left inguinal hernia. Visualized portions of bowels are unremarkable including a normal appendix. No free fluid in the pelvis. Very small fat-containing umbilical hernia. No pathologically enlarged pelvic or inguinal lymphadenopathy. IMPRESSION: 1. 5 mm posterior distraction of an avulsion fracture along the posterior aspect of the right greater trochanter. 2. Old healed internally fixed intertrochanteric fracture the proximal left femur with potentially secondary osteonecrosis at the left femoral head. 3. Stable appearance of a mixed lytic and cirrhotic pattern on either side of the bilateral sacroiliac joints suggestive of additional osteonecrosis potentially sequela of prior radiation treatment with change of prior prostatectomy. 4. Small fat-containing umbilical and left inguinal hernias. Reviewed, dictated and finalized at location A. IMPRESSION: 1. 5 mm posterior distraction of an avulsion fracture along the posterior aspec t of the right greater trochanter. 2. Old healed internally fixed intertrochanteric fracture the proximal left fem ur with potentially secondary osteonecrosis at the left femoral head. 3. Stable appearance of a mixed lytic and cirrhotic pattern on either side of t he bilateral sacroiliac joints suggestive of additional osteonecrosis potential ly sequela of prior radiation treatment with change of prior prostatectomy. 4. Small fat-containing umbilical and left inguinal hernias.
== END 2025-05-03 12:55 | disposition home or self-care (01) ==
LOC: MICIMG 12:56
PROVIDERS: PCP Orthopaedic Surgery; Visit Provider Nurse Practitioner Family
DX: S72.111A Displaced fracture of greater trochanter of right femur, initial encounter for closed fracture (principal); K42.9 Umbilical hernia without obstruction or gangrene; K40.90 Unilateral inguinal hernia, without obstruction or gangrene, not specified as recurrent; W18.30XA Fall on same level, unspecified, initial encounter
CPT/HCPCS: 72192; 73700

== ENCOUNTER 2025-05-11 13:58 | Outpatient (CLI) | payer MEDICARE, SELFPAY ==
[2025-05-11 14:30] LABS: Hematocrit 32.8 % (42.0-52.0); Hemoglobin 10.6 g/dL (14.0-18.0); Mean Corpuscular HGB Conc 32.3 g/dl (32-36); Mean Corpuscular Hemoglobin 34.8 pg (26-34); Mean Corpuscular Volume 107.5 fl (80-100); Platelet Count Result 172 k/mm3 (150-375); Red Blood Count 3.05 M/mm3 (4.6-6.20); White Blood Count 5.9 K/mm3 (4.5-10.0)
[2025-05-11 14:51] LABS: Albumin Level 4.0 g/dL (3.5-5.1); Anion Gap 7 mmol/L (4-12); Blood Urea Nitrogen 30 mg/dL (9-20); Calcium 9.3 mg/dL (8.4-10.2); Carbon Dioxide 28 mmol/L (22-30); Chloride 103 mmol/L (98-107); Estimated Glomerular Filt Rate 30; Glucose 108 mg/dL (65-110); Potassium 3.7 mmol/L (3.4-5.0); Sodium 138 mmol/L (137-145)
[2025-05-11 14:55] LABS: Parathyroid Intact 131.8 pg/mL (14.5-75.2)
== END 2025-05-11 13:59 | disposition home or self-care (01) ==
PROVIDERS: PCP Family Medicine; Visit Provider Internal Medicine Nephrology
DX: N18.32 Chronic kidney disease, stage 3b (principal)
CPT/HCPCS: 36415; 80069; 83970; 85027

== ENCOUNTER 2025-05-12 13:42 | Outpatient (NON) | payer MEDICARE, SELFPAY ==
[2025-05-12 16:09] LABS: Total Protein Urine Random 53 mg/dL; Ur Ttl Prot Creatinine Ratio 1.04 mg/mg (0-0.20)
== END 2025-05-12 13:43 | disposition home or self-care (01) ==
LOC: ANHLAB 13:52
PROVIDERS: PCP Family Medicine; Visit Provider Internal Medicine Nephrology
DX: N18.32 Chronic kidney disease, stage 3b (principal)
CPT/HCPCS: 82570; 84156

== ENCOUNTER 2025-06-27 10:52 | Emergency (ER) | payer MEDICARE, SELFPAY ==
--- NOTE | ~2025-06-27 | XR_ITS ---
Examination: XR ankle LT min 3V Clinical History: fall/injury Comparison: None Technique: 3 views left ankle Findings/impression: 1. No fracture or dislocation left ankle. 2. Severe lateral soft tissue swelling. 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
--- NOTE | ~2025-06-27 | XR_ITS ---
EXAMINATION: XR tibia fibula LT 2V DATE: 06/27/2025 14:03 INDICATION: Trauma due to fall. Pain, proximal fibula. TECHNIQUE: 4 views of left lower leg were obtained. COMPARISON: Ankle x-ray dated 06/27/2025. FINDINGS: Diffusely osteopenic bones. No definite acute fractures of the tibia and fibula are seen especially proximal tibia and fibula. Soft tissue swelling over the lateral malleolus of the distal lower leg is noted as reported on the ankle x-ray. IMPRESSION: 1. Diffuse osteopenia. No acute bony lesions of the proximal tibia and fibula. Previously reported soft tissue swelling of the lateral aspect of distal lower leg. 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
--- OUTSIDE RECORDS SUMMARY | 2025-06-27 10:53 | XMS_ITS ---
Author Organization Unknown ENCOUNTERS Encounter Performer Location Date Diagnosis Diagnosis Status Pre Admit [facility] [address] [place] [address] [id number] Outpatient [facility] [address] [place] [address] [id number] SKIP Outpatient [facility] [address] [place] [address] [id number] SKIP Emergency [facility] [address] [place] [address] [id number] SKIP Pre Admit [facility] [address] [place] [address] [id number] Outpatient [facility] [address] [place] [address] [id number] SKIP Outpatient [facility] [address] [place] [address] [id number] [facility] Outpatient [facility] [address] [place] [address] [id number] SKIP Inpatient [facility] [address] [place] [address] [id number] [facility] Outpatient [facility] [address] [place] [address] [id number] Emergency [facility] [address] [place] [address] [id number] PAT Pre Admit [facility] [address] [place] [address] [id number] Emergency [facility] [address] [place] [address] [id number] SKIP Emergency [facility] [address] [place] [address] [id number] SKIP In[facility] [address] [place] [address] [id number] [facility] Observation [facility] [address] [place] [address] [id number] Emergency [facility] [address] [place] [address] [id number] PAT [facility]patient [facility] [address] [place] [address] [id number] Outpatient [facility] [address] [place] [address] [id number] Inpatient [facility] [address] [place] [address] [id number] [facility] Observation [facility] [address] [place] [address] [id number] Emergency [facility] [address] [place] [address] [id number] *Note: Encounters from your own facility or health system may be excluded. Allergies, Adverse Reactions, Alerts Allergen Type Severity Identification Date Medications Name Date Quantity Days Supplied GPI Number
[2025-06-27 11:18] VITALS: BP 145/83; PULSE 92; RESP 16; TEMP 36.6; O2SAT 99
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
[2025-06-27] MEDS: HYDROcodone/acetaminophen (*CRX) 5-325 MG TABLET 1 TAB PO (13:59)
== END 2025-06-27 15:08 | disposition home or self-care (01) ==
PROVIDERS: Emergency Provider Student in an Organized Health Care Education/Training Program; PCP Family Medicine
DX: S93.402A Sprain of unspecified ligament of left ankle, initial encounter (principal); S80.12XA Contusion of left lower leg, initial encounter; F03.90 Unspecified dementia, unspecified severity, without behavioral disturbance, psychotic disturbance, mood disturbance, and anxiety; I12.9 Hypertensive chronic kidney disease with stage 1 through stage 4 chronic kidney disease, or unspecified chronic kidney disease; N18.30 Chronic kidney disease, stage 3 unspecified; Z85.46 Personal history of malignant neoplasm of prostate; Z87.891 Personal history of nicotine dependence; W01.0XXA Fall on same level from slipping, tripping and stumbling without subsequent striking against object, initial encounter
CPT/HCPCS: 73590; 73610; 99284; A9270